=== PATIENT | female | born 1980 | race Caucasian/White ===

== ENCOUNTER → 2017-05-21 | Outpatient (CLI) | payer OTHER ==
[~2017-05-21] MED LIST: IOHEXOL 300 MG/ML 75 ML VIAL. IV ONE
--- NOTE | 2017-05-21 15:57 | RAD ---
INDICATION: Shortness of air with elevated d-dimer COMPARISON: None. TECHNIQUE: Axial CT images obtained through the chest. Intravenous contrast was utilized and three-dimensional images processed per angiogram protocol. FINDINGS: Mild groundglass nodular opacity within the left midlung anteriorly. No evidence of pneumothorax. Multiple nonobstructive stones at partially visualized right kidney. Partial visualization of gastric band. There is some fluid within the distal esophagus with some apparent wall thickening. Suspected low-attenuation lesion within the spleen, subcentimeter. Too Small to characterize. Thoracic aorta is not aneurysmal. There is very little contrast in the thoracic aorta therefore lumen is not well evaluated. Small amount of soft tissue density anterior mediastinum, given age could be residual thymus. No central pulmonary embolus IMPRESSION: 1. No central pulmonary embolus. 2. Mild groundglass nodular opacity left lung. Could be secondary to infectious or inflammatory etiology with small focus of pneumonitis. Given the patient's age neoplastic disease is considered unlikely unless the patient has risk factors then follow-up could be obtained. 3. There is some fluid within the distal esophagus with apparent wall thickening. Correlate with symptoms within the region to ensure that this is not from causes such as esophagitis or reflux. PQRS Compliance Statement: One or more of the following individualized dose reduction techniques were utilized for this examination: 1. Automated exposure control 2. Adjustment of the mA and/or kV according to patient size 3. Use of iterative reconstruction technique
== END | disposition home or self-care (01) ==
LOC: CT 15:00
PROVIDERS: ATTEND Nurse Practitioner Adult Health
DX: R91.8 Other nonspecific abnormal finding of lung field (principal); R51 Headache; R06.02 Shortness of breath
CPT/HCPCS: 71275; Q9967

== ENCOUNTER → 2017-09-02 | Outpatient (CLI) | payer OTHER ==
[~2017-09-02] MED LIST changes: +HYDR-971 PO; +TAMS0.4C97 PO
--- NOTE | 2017-09-02 17:16 | RAD ---
Chest CT with and without contrast Clinical indications: Follow-up of lung nodule. Technique: Noncontrast helical CT scanning of the chest was performed. After IV infusion of 75 cc of Omnipaque 300, repeat helical CT scanning of the chest was performed. PQRS Compliance Statement: One or more of the following individualized dose reduction techniques were utilized for this examination: 1. Automated exposure control 2. Adjustment of the mA and/or kV according to patient size 3. Use of iterative reconstruction technique Comparison: May 21, 2017. Findings: No enlarged thoracic lymphadenopathy is seen. No focal aneurysmal dilatation of the thoracic aorta is seen. The heart size is normal and no pericardial effusion is seen. A LAP-BAND is present. There is wall thickening of the distal esophagus. Small amount of fluid is seen within the distal esophagus. No lung mass or lung infiltrate is seen. The previously seen groundglass lung infiltrate of the lingula has resolved. No pleural effusion or pneumothorax is seen. The proximal bronchial tree is patent. No osteolytic process is seen. No adrenal mass is evident. IMPRESSION: Previously seen groundglass lung infiltrate has resolved consistent with infectious or inflammatory disease. No new lung infiltrate is seen. Persistent wall thickening of the distal esophagus. A small amount of fluid is seen within the lumen of the esophagus. This could be secondary to reflux esophagitis. A LAP-BAND is present.
--- NOTE | 2017-09-02 17:28 | RAD ---
Transabdominal and transvaginal sonography of the pelvis Clinical indications: Intermittent pelvic pain for 5 days. Pain is now located within the left lower quadrant. Hysterectomy. Transabdominal sonography: The uterus is surgically absent. The vaginal cuff is unremarkable. The left ovary contains a cyst. This will be further evaluated by transvaginal sonography. Color Doppler flow is seen within left ovary. The right ovary is normal.. Color Doppler flow is seen within the right ovary. Transvaginal sonography: The vaginal cuff is unremarkable. The left ovary measures 3.2 cm and 3.4 cm and 3.5 cm in size and contains a complex corpus luteum cyst or hemorrhagic cyst measuring 16 mm. No free fluid is seen around the left ovary. Color Doppler flow is seen within the left ovary. The right ovary measures 1.8 cm and 2.8 cm and 2.5 cm in size and is normal. Color Doppler flow is seen within the right ovary. No adnexal masses are seen. Small amount of physiologic free fluid is seen within the pelvis. IMPRESSION: 16 mm corpus cyst or hemorrhagic cyst of the left ovary. No free fluid is seen around the left ovary.
== END | disposition home or self-care (01) ==
LOC: US 16:03
PROVIDERS: ATTEND Family Medicine
DX: R10.2 Pelvic and perineal pain (principal); R10.32 Left lower quadrant pain; Z90.710 Acquired absence of both cervix and uterus
CPT/HCPCS: 71270; 76830; 76856; Q9967

== ENCOUNTER 2017-09-03 20:32 | Emergency (ER) | payer OTHER ==
[~2017-09-03] VITALS: Ht 172.7 cm; Wt 82.6 kg
[2017-09-03] MEDS ORDERED: KETOROLAC 30 MG/ML VIAL. ONE (21:20)
[2017-09-03] MEDS ORDERED: KETOROLAC 60 MG/2 ML VIAL. IM ONE (21:30)
[2017-09-03] MEDS ORDERED: HYDROmorphone PF 1 MG/ML DISP.SYRIN ONE (22:01)
[2017-09-03] MEDS ORDERED: HYDROmorphone PF 1 MG/ML DISP.SYRIN IV ONE ×2 (22:10→23:30)
[2017-09-03] MEDS ORDERED: IV NORMAL SALINE 1,000ML 1,000 ML IV ONE (22:10)
[2017-09-03 22:35] LABS: BASO # 0.1 x10^3/uL (0.0-0.2); BASO % 1 % (0-3); EOS # 0.2 x10^3/uL (0.0-0.7); EOS % 2 % (0-3); HEMATOCRIT 40.3 % (36.0-47.0); HEMOGLOBIN 13.6 g/dL (12.0-15.5); LYMPH % 28 % (24-48); MEAN CORPUSCULAR HEMOGLOBIN 30 pg (25-35); MEAN CORPUSCULAR HGB CONC 34 g/dL (31-37); MEAN CORPUSCULAR VOLUME 88 fL (79-100); MONO # 0.5 x10^3/uL (0.0-1.1); MONO % 7 % (0-9); NEUT # 4.3 x10^3uL (1.8-7.7); NEUT % 61 % (31-73); PLATELET COUNT 187 x10^3/uL (140-400); RED CELL DISTRIBUTION WIDTH 14.7 % (11.5-14.5); WHITE BLOOD COUNT 7.1 x10^3/uL (4.0-11.0)
[2017-09-03 23:15] LABS: ALBUMIN/GLOBULIN RATIO 1.3 (1.0-1.7); CALCIUM 8.5 mg/dL (8.5-10.1); CREATININE 0.9 mg/dL (0.6-1.0); GFR 71.3; POTASSIUM 3.8 mmol/L (3.5-5.1); TOTAL PROTEIN 7.1 g/dL (6.4-8.2)
[2017-09-03 23:21] LABS: BILIRUBIN,URINE NEG (NEG); CLARITY,URINE CLEAR; COLOR,URINE YELLOW; GLUCOSE,URINE NEG (NEG)
[2017-09-03 23:22] LABS: BACTERIA,URINE 0 /HPF (0-FEW); NITRITE,URINE NEG (NEG); RBC,URINE OCC /HPF (0-2); SQUAMOUS EPITHELIAL CELL,UR FEW /LPF; UROBILINOGEN,URINE 0.2 mg/dL (0.2 mg/dL); WBC,URINE 0 /HPF (0-4)
[2017-09-03] MEDS ORDERED: ONDANSETRON PF 4 MG/2 ML VIAL. IV ONE (23:30)
--- NOTE | 2017-09-04 00:04 | RAD ---
Left RENAL ULTRASOUND Indication: Left lower quadrant pain, history of kidney stones. Comparison: None. Procedure: Transabdominal ultrasound images are obtained of the left kidney. Findings: Left kidney length this 11.6 cm. There is a prominent column of Pedro. Cortical echotexture is normal. Normal cortical medullary differentiation. No hydronephrosis. Urinary bladder is no incompletely decompressed, limiting evaluation. The right kidney is not imaged. IMPRESSION: No left hydronephrosis.. Electronically signed by: Isrrael Valdes MD (09/04/2017 12:00 AM) [facility]
--- NOTE | 2017-09-04 00:13 | RAD ---
EXAM: TRANSVAGINAL HISTORY: Left ovarian cyst follow-up from yesterday. COMPARISON: September 02, 2017. TECHNIQUE: Transverse and longitudinal sonography of the pelvis is performed utilizing a transvaginal transducer. FINDINGS: A small amount of simple appearing free fluid is present within the pelvis, similar to yesterday's exam. The left ovary is visualized measuring 3.7 x 3.2 x 2.7 cm. There is redemonstration of a 1.8 cm partially cystic, partially echogenic lesion within the left ovary, unchanged in appearance from yesterday's exam. Some peripheral blood flow is documented. Other normal-appearing follicles are seen within the ovary. Normal blood flow is documented within the ovary. The right ovary cannot be visualized. Uterus is not evaluated. IMPRESSION: Stable sonographic appearance of the left ovary when compared to yesterday's exam, which contains a probable hemorrhagic or corpus luteal cyst. Small amount of simple appearing pelvic fluid also appears stable. Electronically signed by: Tessa Werner MD (09/04/2017 12:10 AM) [id number]
[2017-09-04] MEDS ORDERED: TAMS0.4C97 PO (00:18)
[2017-09-04] MEDS ORDERED: HYDR-971 PO (00:22)
--- NOTE | 2017-09-04 00:22 | PHYS DOC ---
Past History Past Medical History: Endometriosis, Kidney Stones Past Surgical History: Cholecystectomy, Hysterectomy Alcohol Use: Rarely Drug Use: None Adult General Chief Complaint Chief Complaint: ABDOMINAL PAIN [facility] HPI Patient is a 36 year old F who presents with constant sharp left lower quadrant abdominal pain with wave like episodes of worsening pain lasting minutes at a time. She states that she has had symptoms over the past 6 days however approximately 2-3 hours prior to arrival her pain became much more severe. She was seen in the emergency room last night was found to have an ovarian cyst. She does have a history of kidney stones as well as atypical renal anatomy. She states that she has to ureters on the left side. She does have associated nausea and vomiting with episodes of pain. She has no other associated symptoms. She has no known exacerbating or alleviating factors. Review of Systems Review of Systems Constitutional: Denies fever or chills [] Eyes: Denies change in visual acuity, redness, or eye pain [] HENT: Denies nasal congestion or sore throat [] Respiratory: Denies cough or shortness of breath [] Cardiovascular: No additional information not addressed in HPI [] GI: Denies bloody stools or diarrhea. She states that she has had regular bowel movements : Denies dysuria or hematuria [] Musculoskeletal: Denies back pain or joint pain [] Integument: Denies rash or skin lesions [] Neurologic: Denies headache, focal weakness or sensory changes [] Endocrine: Denies polyuria or polydipsia [] Family History Family History Noncontributory Current Medications Current Medications Current Medications Medications (Trade) Dose Ordered Sig/Shila Start Time Stop Time Status Last Admin Dose Admin Hydromorphone HCl (Dilaudid) 1 mg 1X ONCE 09/03/17 23:30 09/03/17 23:31 DC 09/03/17 23:30 1 MG Ketorolac Tromethamine (Toradol) 30 mg STK-MED ONCE 09/03/17 21:20 09/03/17 21:21 DC Ondansetron HCl (Zofran) 4 mg 1X ONCE 09/03/17 23:30 09/03/17 23:31 DC 09/03/17 23:30 4 MG Sodium Chloride 1,000 ml @ 1,000 mls/hr 1X ONCE 09/03/17 22:10 09/03/17 23:09 DC 09/03/17 22:10 1,000 MLS/HR Allergies Allergies Allergies Coded Allergies Type Severity Reaction Last Updated Verified amoxicillin Allergy Unknown 05/21/17 Yes Physical Exam Physical Exam Constitutional: Well developed, well nourished, mild to moderate acute distress , non-toxic appearance. [] HENT: Normocephalic, atraumatic, bilateral external ears normal, oropharynx moist, no oral exudates, nose normal. [] Eyes: PERRLA, conjunctiva normal, no discharge. [] Neck: Normal range of motion, no tenderness, supple, no stridor. [] Cardiovascular:Heart rate regular rhythm, Lungs & Thorax: Bilateral breath sounds clear to auscultation [] Abdomen: Bowel sounds normal, soft, no masses, no pulsatile masses. [] Mild left lower quadrant tenderness, mild left flank tenderness Skin: Warm, dry, no erythema, no rash. [] Back: No tenderness, no CVA tenderness. [] Extremities: No tenderness, no cyanosis, no clubbing, ROM intact, no edema. [] Neurologic: Alert and oriented X 3, normal motor function, normal sensory function, no focal deficits noted. [] Psychologic: Affect normal, judgement normal, mood normal. [] Current Patient Data Vital Signs Vital Signs Date Time Temp Pulse Resp B/P (MAP) Pulse Ox O2 Delivery O2 Flow Rate FiO2 09/03/17 23:30 20 Room Air 09/03/17 21:05 97.8 77 125/80 (95) 97 Lab Results Laboratory Tests Test 09/03/17 21:57 09/03/17 22:20 Urine Collection Type Void Urine Color Yellow Urine Clarity Clear Urine pH 6.0 Urine Specific [place] 1.025 Urine Protein Neg (NEG-TRACE) Urine Glucose (UA) Neg mg/dL (NEG) Urine Ketones (Stick) Neg mg/dL (NEG) Urine Blood Trace (NEG) Urine Nitrite Neg (NEG) Urine Bilirubin Neg (NEG) Urine Urobilinogen Dipstick 0.2 mg/dL (0.2 mg/dL) Urine Leukocyte Esterase Neg (NEG) Urine RBC Occ /HPF (0-2) Urine WBC 0 /HPF (0-4) Urine Squamous Epithelial Cells Few /LPF Urine Bacteria 0 /HPF (0-FEW) White Blood Count 7.1 x10^3/uL (4.0-11.0) Red Blood Count 4.60 x10^6/uL (3.50-5.40) Hemoglobin 13.6 g/dL (12.0-15.5) Hematocrit 40.3 % (36.0-47.0) Mean Corpuscular Volume 88 fL (79-100) Mean Corpuscular Hemoglobin 30 pg (25-35) Mean Corpuscular Hemoglobin Concent 34 g/dL (31-37) Red Cell Distribution Width 14.7 % (11.5-14.5) H Platelet Count 187 x10^3/uL (140-400) Neutrophils (%) (Auto) 61 % (31-73) Lymphocytes (%) (Auto) 28 % (24-48) Monocytes (%) (Auto) 7 % (0-9) Eosinophils (%) (Auto) 2 % (0-3) Basophils (%) (Auto) 1 % (0-3) Neutrophils # (Auto) 4.3 x10^3uL (1.8-7.7) Lymphocytes # (Auto) 2.0 x10^3/uL (1.0-4.8) Monocytes # (Auto) 0.5 x10^3/uL (0.0-1.1) Eosinophils # (Auto) 0.2 x10^3/uL (0.0-0.7) Basophils # (Auto) 0.1 x10^3/uL (0.0-0.2) Sodium Level 139 mmol/L (136-145) Potassium Level 3.8 mmol/L (3.5-5.1) Chloride Level 104 mmol/L (98-107) Carbon Dioxide Level 26 mmol/L (21-32) Anion Gap 9 (6-14) Blood Urea Nitrogen 11 mg/dL (7-20) Creatinine 0.9 mg/dL (0.6-1.0) Estimated GFR (Cockcroft-Gault) 71.3 BUN/Creatinine Ratio 12 (6-20) Glucose Level 82 mg/dL (70-99) Calcium Level 8.5 mg/dL (8.5-10.1) Total Bilirubin 1.0 mg/dL (0.2-1.0) Aspartate Amino Transferase (AST) 10 U/L (15-37) L Alanine Aminotransferase (ALT) 20 U/L (14-59) Alkaline Phosphatase 94 U/L (46-116) Total Protein 7.1 g/dL (6.4-8.2) Albumin 4.0 g/dL (3.4-5.0) Albumin/Globulin Ratio 1.3 (1.0-1.7) Lipase 230 U/L (73-393) EKG EKG [] Radiology/Procedures Radiology/Procedures Ultrasound abdomen limited Impressions: Normal blood flow to the left ovary with ovarian cyst noted to be diminishing in size. No hydronephrosis noted. Course & Med Decision Making Course & Med Decision Making Pertinent Labs and Imaging studies reviewed. (See chart for details) It was explained to Shanel and her that CT abdomen and pelvis without contrast is the preferred imaging modality to find a kidney stone. CT scan was declined. He was explained that without radiographic evidence of a kidney stone it is possible that another source may be causing her pain. She expressed understanding and declined the CT scan. Given that she has had a history of kidney stones and her pain is similar to previous kidney stones it was felt reasonable to manage her current symptoms as likely caused by a kidney stone. Dragon Disclaimer Dragon Disclaimer This chart was dictated in whole or in part using Voice Recognition software in a busy, high-work load, and often noisy Emergency Department environment. It may contain unintended and wholly unrecognized errors or omissions. Departure Departure: Impression: Primary Impression: Abdominal pain Disposition: 01 HOME, SELF-CARE Condition: STABLE Referrals: SANDEEP GAXIOLA DO (PCP) Patient Instructions: Diet for Kidney Stones, Kidney Stones Additional Instructions: Shanel was seen in the emergency department for abdominal pain. No emergency medical condition was found on history or physical exam. She did have normal labs and a normal ultrasound. Her symptoms are most consistent with a kidney stone. She was given a prescription for Flomax and pain medication. She was also given a strainer to attempt to collect the stone to ensure it passes. She was advised to return to the emergency room if she develops new or worsening symptoms. She was also advised follow-up with her primary care doctor as needed for further management. Scripts Hydrocodone Bit/Acetaminophen (NORCO 5-325 TABLET) 1 Each Tablet 1 TAB PO TID Y for PAIN for 5 Days, #15 TAB Prov: ROBSON KUNZ MD 09/04/17 Tamsulosin Hcl (FLOMAX) 0.4 Mg Cap.er.24h 1 CAP PO DAILY for 14 Days, #14 CAP 11 Refills Prov: ROBSON KUNZ MD 09/04/17 Problem Qualifiers Primary Impression: Abdominal pain Abdominal location: left lower quadrant Qualified Codes: R10.32 - Left lower quadrant pain ROBSON KUNZ MD Sep 04, 2017 00:22
[2017-09-04 00:25] VITALS: BP 110/74
[2017-09-04] MEDS ORDERED: TAMSULOSIN 0.4 MG CAP.ER.24H. PO ONE (00:45)
== END 2017-09-04 00:35 | disposition home or self-care (01) ==
LOC: ER 20:32
DX: R10.32 Left lower quadrant pain (principal); R11.2 Nausea with vomiting, unspecified; N83.202 Unspecified ovarian cyst, left side; Z87.442 Personal history of urinary calculi; Z88.1 Allergy status to other antibiotic agents; Z90.49 Acquired absence of other specified parts of digestive tract; Z90.710 Acquired absence of both cervix and uterus
CPT/HCPCS: 36415; 76775; 76830; 80053; 81001; 83690; 85025; 96361; 96372; 96374; 96375; 96376; 99285; J1170; J1885; J2405; J7030

== ENCOUNTER 2019-10-09 09:29 | Emergency (ER) | payer OTHER ==
[~2019-10-09] VITALS: Ht 172.7 cm; Wt 75.7 kg
[~2019-10-09 09:29] MED LIST changes: +HYDR-3165 PO; -HYDR-971 PO; -IOHEXOL 300 MG/ML 75 ML VIAL. IV ONE
[2019-10-09] MEDS ORDERED: IV NORMAL SALINE 1,000ML 1,000 ML IV SCH (09:43)
--- NOTE | 2019-10-09 09:49 | PHYS DOC ---
Past History Past Medical History: Endometriosis, Kidney Stones, Other Additional Past Medical Histor: double uterers on left Past Surgical History: Cholecystectomy, Hysterectomy, Other Additional Past Surgical Histo: surgeries for kidney stones; lap band Smoking: Non-smoker Alcohol Use: Rarely Drug Use: None Adult General Chief Complaint Chief Complaint: FLANK PAIN HPI HPI Patient is a 38-year-old female, with a prior history of kidney stones, who presents to the emergency department for evaluation of sudden onset left flank pain which began last night. She states that she has had kidney stones in the past and the pains feel similar. She has not had any hematuria, but reports some urinary urgency, and dark urine. She has not had any dysuria. She has had nausea and vomiting but no fever. She denies any injuries. There are no alleviating or exacerbating factors to her symptoms. She last had surgery on a kidney stone this past summer, and has a urologist in [facility] whom she sees. Review of Systems Review of Systems Constitutional: Denies fever or chills [] Eyes: Denies change in visual acuity, redness, or eye pain [] HENT: Denies nasal congestion or sore throat [] Respiratory: Denies cough or shortness of breath [] Cardiovascular: The patient denies any shortness of breath, chest pain, palpitations, or orthopnea [] GI: Denies abdominal pain, nausea, vomiting, bloody stools or diarrhea [] : As per history of present illness[] Musculoskeletal: Denies back pain or joint pain [] Integument: Denies rash or skin lesions [] Neurologic: Denies headache, focal weakness or sensory changes [] Endocrine: Denies polyuria or polydipsia [] All other systems were reviewed and found to be within normal limits, except as documented in this note. Allergies Allergies Allergies Coded Allergies Type Severity Reaction Last Updated Verified amoxicillin Allergy Unknown 10/09/19 Yes calamine Allergy Unknown 10/09/19 Yes Physical Exam Physical Exam PHYSICAL EXAM: CONSTITUTIONAL: Well developed, well nourished HEAD: normocephalic, atraumatic EENT: PERRL, EOMI. Conjunctivae normal color, sclerae non-icteric; moist mucous membranes. NECK: Supple, non-tender; no meningismus. LUNGS: Lungs CTA, breathing even and unlabored. Normal air movement. HEART: Regular rate and rhythm, no murmur CHEST: No deformity; non-tender ABDOMEN: The abdomen is soft, there is tenderness to palpation to the left and mid abdomen, without rebound or guarding, the remainder of the abdomen is soft and non-tender, no masses or bruits. EXTREM: Normal ROM; no deformity, no calf tenderness. Normal pulses palpable in all extremities. There is no pedal edema. SKIN: No rash; no diaphoresis NEURO: Alert; normal speech and cognition; CN's grossly intact; strength grossly intact without focal deficit. BACK: There is moderate left-sided CVA tenderness to palpation, which reproduces the patient's pain, no right-sided CVA TTP. Current Patient Data Vital Signs Vital Signs Date Time Temp Pulse Resp B/P (MAP) Pulse Ox O2 Delivery O2 Flow Rate FiO2 10/09/19 09:38 98.6 92 20 97 Room Air Lab Results Laboratory Tests Test 10/09/19 09:50 10/09/19 09:57 Urine Collection Type Void Urine Color Jane Urine Clarity Cloudy Urine pH 6.0 Urine Specific [place] >=1.030 Urine Protein 100 mg/dl Urine Glucose (UA) Neg mg/dL Urine Ketones (Stick) Trace mg/dL Urine Blood Large Urine Nitrite Pos Urine Bilirubin Neg Urine Urobilinogen Dipstick 0.2 mg/dL Urine Leukocyte Esterase Trace Urine RBC >40 /HPF Urine WBC 20-40 /HPF Urine Squamous Epithelial Cells Few /LPF Urine Bacteria Mod /HPF Urine Mucus Mod /LPF White Blood Count 5.5 x10^3/uL Red Blood Count 4.58 x10^6/uL Hemoglobin 14.0 g/dL Hematocrit 41.8 % Mean Corpuscular Volume 91 fL Mean Corpuscular Hemoglobin 31 pg Mean Corpuscular Hemoglobin Concent 33 g/dL Red Cell Distribution Width 16.5 % Platelet Count 200 x10^3/uL Neutrophils (%) (Auto) 50 % Lymphocytes (%) (Auto) 37 % Monocytes (%) (Auto) 10 % Eosinophils (%) (Auto) 2 % Basophils (%) (Auto) 1 % Neutrophils # (Auto) 2.7 x10^3uL Lymphocytes # (Auto) 2.0 x10^3/uL Monocytes # (Auto) 0.5 x10^3/uL Eosinophils # (Auto) 0.1 x10^3/uL Basophils # (Auto) 0.1 x10^3/uL Sodium Level 141 mmol/L Potassium Level 3.9 mmol/L Chloride Level 106 mmol/L Carbon Dioxide Level 25 mmol/L Anion Gap 10 Blood Urea Nitrogen 8 mg/dL Creatinine 0.6 mg/dL Estimated GFR (Cockcroft-Gault) 112.5 BUN/Creatinine Ratio 13 Glucose Level 75 mg/dL Calcium Level 8.8 mg/dL Total Bilirubin 1.4 mg/dL Aspartate Amino Transf (AST/SGOT) 13 U/L Alanine Aminotransferase (ALT/SGPT) 21 U/L Alkaline Phosphatase 69 U/L Total Protein 6.4 g/dL Albumin 3.8 g/dL Albumin/Globulin Ratio 1.5 Lipase 58 U/L Current Medications Medications (Trade) Dose Ordered Sig/Shila Route PRN Reason Start Time Stop Time Status Last Admin Dose Admin Sodium Chloride 1,000 ml @ 1,000 mls/hr Q1H IV 10/09/19 09:43 10/09/19 10:42 DC 10/09/19 09:59 Ondansetron HCl (Zofran) 4 mg 1X ONCE IVP 10/09/19 10:00 10/09/19 10:01 DC 10/09/19 10:00 Ketorolac Tromethamine (Toradol 30mg Vial) 30 mg 1X ONCE IVP 10/09/19 10:00 10/09/19 10:01 DC 10/09/19 10:01 Ketorolac Tromethamine (Toradol 30mg Vial) 30 mg STK-MED ONCE .ROUTE 10/09/19 09:54 10/09/19 09:54 DC Iohexol (Omnipaque 350 Mg/ml) 100 ml 1X ONCE IV 10/09/19 10:45 10/09/19 10:46 DC 10/09/19 10:46 Morphine Sulfate (Morphine 4mg Syringe) 4 mg 1X ONCE IV 10/09/19 11:00 10/09/19 11:01 DC 10/09/19 10:48 Morphine Sulfate (Morphine 4mg Syringe) 4 mg STK-MED ONCE .ROUTE 10/09/19 10:46 10/09/19 10:46 DC Ceftriaxone Sodium 1 gm/ Sodium Chloride 50 ml @ 100 mls/hr 1X ONCE IV 10/09/19 11:15 10/09/19 11:44 10/09/19 11:00 Sodium Chloride 50 ml @ As Directed STK-MED ONCE .ROUTE 10/09/19 10:57 10/09/19 10:57 DC Ceftriaxone Sodium (Rocephin) 1 gm STK-MED ONCE .ROUTE 10/09/19 10:57 10/09/19 10:58 DC EKG EKG [] Radiology/Procedures Radiology/Procedures PROCEDURE: CT ABDOMEN PELVIS WO/W Examination: CT ABDOMEN PELVIS WO/W History: severe lower left abdominal pain X 24 hours, history of kidney stones, duplicate left ureter Comparison/Correlation: 09/30/2017 pelvic ultrasound transabdominal and transvaginal Findings: Axial images of the abdomen and pelvis were obtained prior to and following IV contrast. Sagittal and coronal reformatted images were provided. Lung bases are clear. Gastric lap band noted. Liver is unremarkable. Spleen is unremarkable. Pancreas and adrenal glands are normal. Right renal upper pole 0.4 cm diameter calcified calculus is present. Punctate calculus at the upper pole region more inferiorly also is present. There are 4 interpolar calyceal calculi. There are 2 punctate right lower pole calyceal complex. There are 2 left renal lower pole calyceal calculi with the larger of these measuring 0.3 cm diameter. No hydronephrosis. Striated nephrogram appearance bilaterally as seen on postcontrast imaging. Urinary bladder is mostly decompressed and unremarkable. Adrenal glands are unremarkable. No enlarged abdominal or pelvic lymph nodes. Moderate quantity of stool in the colon noted. No bowel obstruction or extraluminal gas. Uterus is not delineated. No ascites or pelvic free fluid. No enlarged abdominal or pelvic lymph nodes. Surgical clips involving the lower abdominal wall noted. Concentric disc bulge is noted L4-5 with disc space narrowing and spinal canal stenosis. No inflammatory change about the cecum. Bilateral adnexal follicles are present. Impression: Bilateral nonobstructive renal calculi. No hydronephrosis. Incidental note of bilateral striated nephrogram is of indeterminate significance. Correlate for possibility of pyelonephritis, hypertension or acute tubular necrosis. Bilateral adnexal follicles are physiologic in appearance. L4-5 disc space narrowing with concentric disc bulge and spinal canal narrowing. [] Course & Med Decision Making Course & Med Decision Making Pertinent Labs and Imaging studies reviewed. (See chart for details) []11:35 AM:Patient remains stable. I discussed test results, the need for close follow-up, and return precautions. I discussed importance of close follow-up with her urologist for residual intrarenal stones, which are currently nonobstructive. Dragon Disclaimer Dragon Disclaimer This electronic medical record was generated, in whole or in part, using a voice recognition dictation system. Departure Departure: Impression: Primary Impression: Urinary tract infection Additional Impression: Pyelonephritis Disposition: HOME, SELF-CARE Condition: STABLE Referrals: GEOVANNY CALHOUN DO (PCP) Patient Instructions: Diet for Kidney Stones, Pyelonephritis, Adult, Urinary Tract Infection Scripts Acetaminophen With Codeine (TYLENOL WITH CODEINE #3 TABLET) 1 Each Tablet 1 TAB PO PRN Q6HRS PRN for pain MDD 4 Tablet(s), #15 TAB 0 Refills Prov: JOSE OREILLY MD 10/09/19 Sulfamethoxazole/Trimethoprim (BACTRIM 400-80 MG TABLET) 1 Each Tablet 1 TAB PO BID for - for 10 Days, #20 TAB 0 Refills Prov: JOSE OREILLY MD 10/09/19 Problem Qualifiers JOSE OREILLY MD Oct 09, 2019 09:48
[2019-10-09] MEDS ORDERED: KETOROLAC 30 MG/ML VIAL. ONE (09:54)
[2019-10-09] MEDS ORDERED: ONDANSETRON PF 4 MG/2 ML VIAL. IVP ONE (10:00)
[2019-10-09] MEDS ORDERED: KETOROLAC 30 MG/ML VIAL. IVP ONE (10:00)
[2019-10-09 10:12] LABS: BASO # 0.1 x10^3/uL (0.0-0.2); BASO % 1 % (0-3); EOS # 0.1 x10^3/uL (0.0-0.7); EOS % 2 % (0-3); HEMATOCRIT 41.8 % (36.0-47.0); LYMPH % 37 % (24-48); MEAN CORPUSCULAR HEMOGLOBIN 31 pg (25-35); MEAN CORPUSCULAR HGB CONC 33 g/dL (31-37); MEAN CORPUSCULAR VOLUME 91 fL (79-100); MONO # 0.5 x10^3/uL (0.0-1.1); MONO % 10 % (0-9); NEUT # 2.7 x10^3uL (1.8-7.7); NEUT % 50 % (31-73); PLATELET COUNT 200 x10^3/uL (140-400); RED BLOOD COUNT 4.58 x10^6/uL (3.50-5.40); RED CELL DISTRIBUTION WIDTH 16.5 % (11.5-14.5); WHITE BLOOD COUNT 5.5 x10^3/uL (4.0-11.0)
[2019-10-09 10:30] LABS: ALBUMIN 3.8 g/dL (3.4-5.0); ALBUMIN/GLOBULIN RATIO 1.5 (1.0-1.7); CALCIUM 8.8 mg/dL (8.5-10.1); CREATININE 0.6 mg/dL (0.6-1.0); GFR 112.5; POTASSIUM 3.9 mmol/L (3.5-5.1); TOTAL BILIRUBIN 1.4 mg/dL (0.2-1.0); TOTAL PROTEIN 6.4 g/dL (6.4-8.2)
[2019-10-09 10:45] LABS: BACTERIA,URINE MOD /HPF (0-FEW); BILIRUBIN,URINE NEG (NEG); CLARITY,URINE CLOUDY; COLOR,URINE AMBER; GLUCOSE,URINE NEG (NEG); NITRITE,URINE POS (NEG); RBC,URINE >40 /HPF (0-2); SQUAMOUS EPITHELIAL CELL,UR FEW /LPF; UROBILINOGEN,URINE 0.2 mg/dL (0.2 mg/dL); WBC,URINE 20-40 /HPF (0-4)
[2019-10-09] MEDS ORDERED: IOHEXOL 350 MG/ML 100 ML VIAL. IV ONE (10:45)
[2019-10-09] MEDS ORDERED: MORPHINE SULFATE 4 MG/ML DISP.SYRIN. ONE (10:46)
[2019-10-09] MEDS ORDERED: cefTRIAXone SODIUM 1 GM VIAL ONE (10:57)
[2019-10-09] MEDS ORDERED: IV NORMAL SALINE 50ML 50 ML ONE (10:57)
[2019-10-09] MEDS ORDERED: MORPHINE SULFATE 4 MG/ML DISP.SYRIN. IV ONE (11:00)
--- NOTE | 2019-10-09 11:11 | RAD ---
Examination: CT ABDOMEN PELVIS WO/W History: severe lower left abdominal pain X 24 hours, history of kidney stones, duplicate left ureter Comparison/Correlation: 09/30/2017 pelvic ultrasound transabdominal and transvaginal Findings: Axial images of the abdomen and pelvis were obtained prior to and following IV contrast. Sagittal and coronal reformatted images were provided. Lung bases are clear. Gastric lap band noted. Liver is unremarkable. Spleen is unremarkable. Pancreas and adrenal glands are normal. Right renal upper pole 0.4 cm diameter calcified calculus is present. Punctate calculus at the upper pole region more inferiorly also is present. There are 4 interpolar calyceal calculi. There are 2 punctate right lower pole calyceal complex. There are 2 left renal lower pole calyceal calculi with the larger of these measuring 0.3 cm diameter. No hydronephrosis. Striated nephrogram appearance bilaterally as seen on postcontrast imaging. Urinary bladder is mostly decompressed and unremarkable. Adrenal glands are unremarkable. No enlarged abdominal or pelvic lymph nodes. Moderate quantity of stool in the colon noted. No bowel obstruction or extraluminal gas. Uterus is not delineated. No ascites or pelvic free fluid. No enlarged abdominal or pelvic lymph nodes. Surgical clips involving the lower abdominal wall noted. Concentric disc bulge is noted L4-5 with disc space narrowing and spinal canal stenosis. No inflammatory change about the cecum. Bilateral adnexal follicles are present. Impression: Bilateral nonobstructive renal calculi. No hydronephrosis. Incidental note of bilateral striated nephrogram is of indeterminate significance. Correlate for possibility of pyelonephritis, hypertension or acute tubular necrosis. Bilateral adnexal follicles are physiologic in appearance. L4-5 disc space narrowing with concentric disc bulge and spinal canal narrowing. PQRS Compliance Statement: One or more of the following individualized dose reduction techniques were utilized for this examination: 1. Automated exposure control 2. Adjustment of the mA and/or kV according to patient size 3. Use of iterative reconstruction technique Electronically signed by: Myron Etienne MD (10/09/2019 11:09 AM) [facility]
[2019-10-09] MEDS ORDERED: ACET-704 PO (11:39)
[2019-10-09] MEDS ORDERED: SULF1TAB23 PO (11:39)
[2019-10-09 12:15] VITALS: BP 101/56
== END 2019-10-09 12:15 | disposition home or self-care (01) ==
LOC: ER 09:29
DX: N12 Tubulo-interstitial nephritis, not specified as acute or chronic (principal); N39.0 Urinary tract infection, site not specified; R11.2 Nausea with vomiting, unspecified; Z87.442 Personal history of urinary calculi; Z90.49 Acquired absence of other specified parts of digestive tract; Z90.710 Acquired absence of both cervix and uterus; Z88.8 Allergy status to other drugs, medicaments and biological substances; Z88.1 Allergy status to other antibiotic agents
CPT/HCPCS: 36415; 74178; 80053; 81001; 83690; 85025; 87086; 96361; 96365; 96375; 99285; J0696; J1885; J2270; J2405; Q9967; J7030

== ENCOUNTER 2019-12-10 20:39 | Observation (INO) | payer OTHER ==
[~2019-12-10] VITALS: Ht 172.7 cm; Wt 74.0 kg
[~2019-12-10 20:39] MED LIST changes: +ACET-704 PO; +SULF1TAB23 PO
--- NOTE | 2019-12-10 20:52 | PHYS DOC ---
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 I am hurtin a bed on my left abdomen.. it is almost as bad as kidney stone.. but pain is not usually like this... " [facility] HPI Patient is a 39 year old female who presents with above hx and complaints of abdomen pain. Pt. is described as severe on Lt flank and lower abdomen. There is some rebound to right lower abdomen pain. Patient denies any intake bad food. Patient denies any trauma. Patient denies any specific ill contacts. Patient normally follows at [facility] for care. 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 Patient has had removal gallbladder, LAP-BAND placement, and partial hysterectomy. Patient still has ovaries. Pt. follows at [facility] Review of Systems Review of Systems Constitutional: Denies fever or chills [] Eyes: Denies change in visual acuity, redness, or eye pain [] HENT: Denies nasal congestion or sore throat [] Respiratory: Denies cough or shortness of breath [] Cardiovascular: No additional information not addressed in [facility] [] GI: Denies abdominal pain, nausea, vomiting, bloody stools or diarrhea [] : Denies dysuria or hematuria [] Musculoskeletal: Denies back pain or joint pain [] Integument: Denies rash or skin lesions [] Neurologic: Denies headache, focal weakness or sensory changes [] Endocrine: Denies polyuria or polydipsia [] All other systems were reviewed and found to be within normal limits, except as documented in this note. Family History Family History Noncontributory Current Medications Current Medications See nursing for home meds Allergies Allergies Allergies Coded Allergies Type Severity Reaction Last Updated Verified amoxicillin Allergy Unknown 10/09/19 Yes calamine Allergy Unknown 10/09/19 Yes Physical Exam Physical Exam Constitutional: in acute distress, non-toxic appearance. [] HENT: Normocephalic, atraumatic, bilateral external ears normal, oropharynx moist, no oral exudates, nose normal. [] Eyes: PERRLA, EOMI, conjunctiva normal, no discharge. [] Neck: Normal range of motion, no tenderness, supple, no stridor. [] Cardiovascular:Heart rate regular rhythm, no murmur [] Lungs & Thorax: Bilateral breath sounds equal apex on auscultation [] Abdomen: Bowel sounds normal, soft, left lower quadrant tenderness, no masses, no pulsatile masses. Old surgery scars. Rebound to left lower quadrant. Patient denies any vaginal discharge. Skin: Warm, dry, no erythema, no rash. [] Back: No tenderness, mild left CVA tenderness. On percussion Extremities: No tenderness, no cyanosis, no clubbing, ROM intact, no edema. [] Mild psoas on left. Neurologic: Alert and oriented X 3, normal motor function, normal sensory function, no focal deficits noted. [] Psychologic: Affect anxious, judgement normal, mood normal. [] EKG EKG My interpretation EKG shows a sinus rhythm at 82 bpm. No acute morphology.[] Radiology/Procedures Radiology/[place] [address] IMAGING REPORT Signed PATIENT: NILTON CASEY ACCOUNT: [id number] : 1980 LOCATION: ER AGE: 39 SEX: F EXAM STATUS: REG ER ORD. PHYSICIAN: JUANCARLOS AYALA MD REASON: abd. pain Lt. lower, OMNI 300, 75ml & OMNI 240, 30ml PROCEDURE: CT ABD PELV W/ORAL&IV CONTRAST PQRS Compliance Statement: One or more of the following individualized dose reduction techniques were utilized for this examination: 1. Automated exposure control 2. Adjustment of the mA and/or kV according to patient size 3. Use of iterative reconstruction technique CT ABD PELV W/ORAL IV CONTRAST Clinical Indication: Abdominal pain, left lower. Comparison: CT abdomen and pelvis without contrast, prior day. Technique: Helical CT imaging of the abdomen and pelvis is performed after 75 cc of Omnipaque 300 IV contrast. Oral contrast also given. Findings: Lung bases are clear. Cardiac size normal. There is oral contrast in the distal esophagus which may be due to incomplete passage versus reflux. There is no wall thickening of the distal esophagus. Cholecystectomy. Extrahepatic duct prominence is stable. The liver is homogeneous. Normal variant Steff lobe. Small cyst or hemangioma in the medial spleen. Pancreas, adrenal glands, and abdominal aorta caliber are normal. There are bilateral nonobstructing renal calculi. The kidneys enhance symmetrically. No hydronephrosis. Duplicated left collecting system. Gastric lap band is in stable position. No gastric wall thickening is seen. Oral contrast opacifies proximal small bowel loops. There is no small bowel obstruction. No colon wall thickening is identified. The appendix is normal. No abdominal adenopathy or free fluid. Urinary bladder is mostly decompressed, otherwise normal. Hysterectomy. Small right ovary functional cyst demonstrates rim enhancement. Small left ovarian follicles are suggested. No pelvic free fluid is seen. Bones appear stable. Transitional lumbosacral anatomy. IMPRESSION: 1. No acute abdominal or pelvic abnormality. 2. Bilateral nonobstructing renal calculi. Electronically signed by: Isrrael Valdes MD (12/11/2019 2:27 AM) [id number] DICTATED AND SIGNED BY: ISRRAEL VALDES MD DATE: 12/11/19226 CC: GEOVANNY CALHOUN DO; JUANCARLOS AYALA MD ~ [place] [address] IMAGING REPORT Signed PATIENT: NILTON CASEY ACCOUNT: [id number] : 1980 LOCATION: ER AGE: 39 SEX: F EXAM STATUS: REG ER ORD. PHYSICIAN: JUANCARLOS AYALA MD REASON: pain, MID ABD/PEL PAIN, NAUSEA, SINCE THIS MORNING. PROCEDURE: ACUTE ABDOMEN SERIES Exam: Acute abdominal series INDICATION: Pain TECHNIQUE: Frontal view of chest with upright and supine views of the abdomen Comparisons: None FINDINGS: The cardiomediastinal silhouette and pulmonary vessels are within normal limits. The lung and pleural spaces are clear. There is a lap band which appears to be in appropriate position on radiograph. Air and stool are noted throughout the colon to level the rectum in a nonobstructive bowel gas pattern. No suspicious masses or calcifications. No free air. Visualized osseous structures are unremarkable. IMPRESSION: 1. No acute cardiopulmonary process. 2. Nonobstructive bowel gas pattern. Electronically signed by: Mi Acuna MD (12/10/2019 10:35 PM) [id number] DICTATED AND SIGNED BY: MI ACUNA MD DATE: 12/10/192234 CC: GEOVANNY CALHOUN DO; JUANCARLOS AYALA MD ~ [][address] [id number] IMAGING REPORT Signed PATIENT: NILTON CASEY ACCOUNT: [id number] : 1980 LOCATION: ER AGE: 39 SEX: F EXAM STATUS: REG ER ORD. PHYSICIAN: JUANCARLOS AYALA MD REASON: Hematuria, Lt flank and abdomen pain, H/O DOUBLE URETERS ON LEFT PROCEDURE: CT ABDOMEN PELVIS WO CONTRAST PQRS Compliance Statement: One or more of the following individualized dose reduction techniques were utilized for this examination: 1. Automated exposure control 2. Adjustment of the mA and/or kV according to patient size 3. Use of iterative reconstruction technique CT ABDOMEN PELVIS WO CONTRAST Clinical Indication: Hematuria, left flank and abdomen pain. Comparison: CT abdomen and pelvis with and without contrast, October 09, 2019. Technique: Helical CT imaging of the abdomen and pelvis is performed without IV or oral contrast. Findings: Evaluation of solid organs and bowel is limited without oral and IV contrast, decreasing sensitivity for detection of pathology. Lung bases are clear. Cardiac size normal. Small air-fluid level in the distal esophagus. Cholecystectomy. Extrahepatic duct is mildly prominent tiny bubble of pneumobilia is seen distally, image 54. Liver is homogeneous. Spleen, pancreas, adrenal glands, and abdominal aorta caliber are normal. There are several sub-5 mm bilateral nonobstructing renal calculi. Duplicated left collecting system. No hydronephrosis or perinephric stranding is seen. There is gastric lap band in appropriate position. There is no small bowel obstruction. The appendix is normal. The descending colon is decompressed, limiting evaluation. No colon wall thickening is seen. No abdominal adenopathy or free fluid. There are several surgical clips along the ventral abdominal wall subcutaneous fat. Urinary bladder is normal. Hysterectomy. No pelvic free fluid is seen. Ovaries are symmetric. Redemonstrated degenerative spondylosis of L4/L5. IMPRESSION: 1. There is no obstructive uropathy. 2. Bilateral nonobstructing renal calculi. Electronically signed by: Isrrael Valdes MD (12/10/2019 11:16 PM) [id number] DICTATED AND SIGNED BY: ISRRAEL VALDES MD DATE: 12/10/192315 CC: GEOVANNY CALHOUN DO; JUANCARLOS AYALA MD ~ Course & Med Decision Making Course & Med Decision Making Pertinent Labs and Imaging studies reviewed. (See chart for details) Pt. still vomiting and abd. pain at 0300 hrs.. Will admit for NPO status and further eval. Dr. Parks. 1. Abdomen Pain 2. Hematuria 3. Nausea and Vomiting 4. Hx. Ovarian Cyts 5. Hx. of endometriosis 6. History of lap band 7. History of abdomen adhesions 8. History of left duplicating collecting ureters 9. History of kidney stones 10. Hx. IBS [] Dragon Disclaimer Dragon Disclaimer This electronic medical record was generated, in whole or in part, using a voice recognition dictation system. Departure Departure: Disposition: 01 HOME/RESIDENCE PRIOR TO ADM Condition: STABLE Referrals: GEOVANNY CALHOUN DO (PCP) Scripts Acetaminophen (ACETAMINOPHEN) 500 Mg Tablet 1000 MG PO QIDPRN PRN for pain or fever, #120 TAB Prov: JUANCARLOS AYALA MD 12/11/19 Ibuprofen (IBUPROFEN IB) 200 Mg Tablet 600 MG PO QIDPRN PRN for pain fever, #120 TAB Prov: JUANCARLOS AYALA MD 12/11/19 Ondansetron Hcl (ZOFRAN) 8 Mg Tablet 8 MG PO QIDPRN PRN for active nausea and vomiting., #30 BOTTLE Prov: JUANCARLOS AYALA MD 12/11/19 Hydrocodone/Ibuprofen (HYDROCODONE-IBUPROFEN 7.5-200 ) 1 Each Tablet 1 TAB PO PRN Q6HRS PRN for PAIN, #30 TAB 0 Refills Prov: JUANCARLOS AYALA MD 12/11/19 Dragon Disclaimer This chart was dictated in whole or in part using Voice Recognition software in a busy, high-work load, and often noisy Emergency Department environment. It may contain unintended and wholly unrecognized errors or omissions. Dragon Disclaimer This chart was dictated in whole or in part using Voice Recognition software in a busy, high-work load, and often noisy Emergency Department environment. It may contain unintended and wholly unrecognized errors or omissions. JUANCARLOS AYALA MD Dec 10, 2019 20:52
[2019-12-10] MEDS ORDERED: IV RINGERS SOLUTION,LACTATED 1,000 ML IV ONE (21:00)
[2019-12-10] MEDS ORDERED: MORPHINE SULFATE 10 MG/ML SYRINGE. SQ ONE ×2 (21:15→22:30)
[2019-12-10] MEDS ORDERED: KETOROLAC 30 MG/ML VIAL. IVP ONE (21:15)
[2019-12-10] MEDS ORDERED: ONDANSETRON PF 4 MG/2 ML VIAL. IVP ONE ×2 (21:15→22:45)
[2019-12-10 21:30] LABS: BASO # 0.1 x10^3/uL (0.0-0.2); BASO % 1 % (0-3); EOS # 0.1 x10^3/uL (0.0-0.7); EOS % 1 % (0-3); HEMATOCRIT 41.6 % (36.0-47.0); HEMOGLOBIN 13.9 g/dL (12.0-15.5); LYMPH # 2.3 x10^3/uL (1.0-4.8); LYMPH % 30 % (24-48); MEAN CORPUSCULAR HEMOGLOBIN 32 pg (25-35); MEAN CORPUSCULAR HGB CONC 33 g/dL (31-37); MEAN CORPUSCULAR VOLUME 95 fL (79-100); MONO # 0.6 x10^3/uL (0.0-1.1); MONO % 8 % (0-9); NEUT # 4.5 x10^3uL (1.8-7.7); NEUT % 60 % (31-73); PLATELET COUNT 212 x10^3/uL (140-400); RED BLOOD COUNT 4.36 x10^6/uL (3.50-5.40); RED CELL DISTRIBUTION WIDTH 16.7 % (11.5-14.5); WHITE BLOOD COUNT 7.5 x10^3/uL (4.0-11.0)
[2019-12-10 21:38] LABS: CALCIUM 8.3 mg/dL (8.5-10.1); CREATININE 0.8 mg/dL (0.6-1.0); GFR 80.3
[2019-12-10 21:39] LABS: BACTERIA,URINE FEW /HPF (0-FEW); BILIRUBIN,URINE NEG (NEG); CLARITY,URINE HAZY; COLOR,URINE YELLOW; GLUCOSE,URINE NEG (NEG); NITRITE,URINE NEG (NEG); SQUAMOUS EPITHELIAL CELL,UR OCC /LPF; WBC,URINE RARE /HPF (0-4)
[2019-12-10 21:54] LABS: ALBUMIN 3.7 g/dL (3.4-5.0); POTASSIUM 3.8 mmol/L (3.5-5.1); TOTAL BILIRUBIN 0.8 mg/dL (0.2-1.0); TOTAL PROTEIN 6.7 g/dL (6.4-8.2)
[2019-12-10 21:55] LABS: DIRECT BILIRUBIN 0.2 mg/dL (0.0-0.2)
--- NOTE | 2019-12-10 22:37 | RAD ---
Exam: Acute abdominal series INDICATION: Pain TECHNIQUE: Frontal view of chest with upright and supine views of the abdomen Comparisons: None FINDINGS: The cardiomediastinal silhouette and pulmonary vessels are within normal limits. The lung and pleural spaces are clear. There is a lap band which appears to be in appropriate position on radiograph. Air and stool are noted throughout the colon to level the rectum in a nonobstructive bowel gas pattern. No suspicious masses or calcifications. No free air. Visualized osseous structures are unremarkable. IMPRESSION: 1. No acute cardiopulmonary process. 2. Nonobstructive bowel gas pattern. Electronically signed by: Mi Camacho MD (12/10/2019 10:35 PM) [id number]
--- NOTE | 2019-12-10 23:19 | RAD ---
PQRS Compliance Statement: One or more of the following individualized dose reduction techniques were utilized for this examination: 1. Automated exposure control 2. Adjustment of the mA and/or kV according to patient size 3. Use of iterative reconstruction technique CT ABDOMEN PELVIS WO CONTRAST Clinical Indication: Hematuria, left flank and abdomen pain. Comparison: CT abdomen and pelvis with and without contrast, October 09, 2019. Technique: Helical CT imaging of the abdomen and pelvis is performed without IV or oral contrast. Findings: Evaluation of solid organs and bowel is limited without oral and IV contrast, decreasing sensitivity for detection of pathology. Lung bases are clear. Cardiac size normal. Small air-fluid level in the distal esophagus. Cholecystectomy. Extrahepatic duct is mildly prominent tiny bubble of pneumobilia is seen distally, image 54. Liver is homogeneous. Spleen, pancreas, adrenal glands, and abdominal aorta caliber are normal. There are several sub-5 mm bilateral nonobstructing renal calculi. Duplicated left collecting system. No hydronephrosis or perinephric stranding is seen. There is gastric lap band in appropriate position. There is no small bowel obstruction. The appendix is normal. The descending colon is decompressed, limiting evaluation. No colon wall thickening is seen. No abdominal adenopathy or free fluid. There are several surgical clips along the ventral abdominal wall subcutaneous fat. Urinary bladder is normal. Hysterectomy. No pelvic free fluid is seen. Ovaries are symmetric. Redemonstrated degenerative spondylosis of L4/L5. IMPRESSION: 1. There is no obstructive uropathy. 2. Bilateral nonobstructing renal calculi. Electronically signed by: Isrrael Valdes MD (12/10/2019 11:16 PM) [id number]
[2019-12-11] MEDS ORDERED: IOHEXOL 240 MG/ML 50ML VIAL. PO ONE (00:45)
[2019-12-11] MEDS ORDERED: CONTRAST GIVEN MC PRN (00:45)
[2019-12-11] MEDS ORDERED: IOHEXOL 300 MG/ML 75 ML VIAL. IV ONE (00:45)
--- NOTE | 2019-12-11 01:14 | EKG ---
[address] [address] Test Date: 2019-12-10 Test Time: 21:02:35 Pat Name: NILTNO CASEY Department: Room: Gender: F Automotive Hardware Engineer: : 1980 Requested By: JUANCARLOS AYALA Order Number: [id number] Reading MD: Measurements Intervals [place] Rate: 82 P: 63 WA: 152 QRS: 46 QRSD: 80 T: 49 QT: 376 QTc: 442 Interpretive Statements SINUS RHYTHM NO SPECIFIC ECG ABNORMALITIES RI6.01 No previous ECG available for comparison
[2019-12-11] MEDS ORDERED: MORPHINE SULFATE 10 MG/ML SYRINGE. SQ ONE (01:45)
--- NOTE | 2019-12-11 02:29 | RAD ---
PQRS Compliance Statement: One or more of the following individualized dose reduction techniques were utilized for this examination: 1. Automated exposure control 2. Adjustment of the mA and/or kV according to patient size 3. Use of iterative reconstruction technique CT ABD PELV W/ORAL IV CONTRAST Clinical Indication: Abdominal pain, left lower. Comparison: CT abdomen and pelvis without contrast, prior day. Technique: Helical CT imaging of the abdomen and pelvis is performed after 75 cc of Omnipaque 300 IV contrast. Oral contrast also given. Findings: Lung bases are clear. Cardiac size normal. There is oral contrast in the distal esophagus which may be due to incomplete passage versus reflux. There is no wall thickening of the distal esophagus. Cholecystectomy. Extrahepatic duct prominence is stable. The liver is homogeneous. Normal variant Steff lobe. Small cyst or hemangioma in the medial spleen. Pancreas, adrenal glands, and abdominal aorta caliber are normal. There are bilateral nonobstructing renal calculi. The kidneys enhance symmetrically. No hydronephrosis. Duplicated left collecting system. Gastric lap band is in stable position. No gastric wall thickening is seen. Oral contrast opacifies proximal small bowel loops. There is no small bowel obstruction. No colon wall thickening is identified. The appendix is normal. No abdominal adenopathy or free fluid. Urinary bladder is mostly decompressed, otherwise normal. Hysterectomy. Small right ovary functional cyst demonstrates rim enhancement. Small left ovarian follicles are suggested. No pelvic free fluid is seen. Bones appear stable. Transitional lumbosacral anatomy. IMPRESSION: 1. No acute abdominal or pelvic abnormality. 2. Bilateral nonobstructing renal calculi. Electronically signed by: Isrrael Valdes MD (12/11/2019 2:27 AM) [id number]
[2019-12-11] MEDS ORDERED: IBUP-4 PO (03:22)
[2019-12-11] MEDS ORDERED: ONDA8TAB9 PO (03:22)
[2019-12-11] MEDS ORDERED: HYDR-1179 PO (03:22)
[2019-12-11] MEDS ORDERED: ACET500T68 PO (03:22)
[2019-12-11] MEDS ORDERED: PROCHLORPERAZINE 10 MG/2 ML VIAL. IV ONE (03:30)
[2019-12-11] MEDS ORDERED: MAGNESIUM HYDROXIDE 2,400 MG/30 ML ORAL.SUSP. PO ONE (03:30)
[2019-12-11] MEDS ORDERED: diphenhydrAMINE 50 MG/ML VIAL IVP ONE (03:30)
[2019-12-11] MEDS ORDERED: MORPHINE SULFATE 10 MG/ML SYRINGE. SQ PRN (04:00)
[2019-12-11] MEDS ORDERED: KETOROLAC 30 MG/ML VIAL. IVP PRN (04:00)
[2019-12-11 05:25] VITALS: BP 111/71
[2019-12-11] MEDS: IV RINGERS SOLUTION,LACTATED 1,000 ML IV SCH ×2 (05:41→09:15)
[2019-12-11] MEDS ORDERED: IBUP400T18 PO (06:20)
[2019-12-11] MEDS ORDERED: ONDANSETRON PF 4 MG/2 ML VIAL. IVP PRN (08:45)
[2019-12-11] MEDS ORDERED: TAMSULOSIN 0.4 MG CAP.ER.24H. PO SCH (09:00)
[2019-12-11] MEDS ORDERED: FAMOTIDINE 20 MG/2 ML VIAL IVP SCH (09:00)
[2019-12-11] MEDS: MORPHINE SULFATE 4 MG/ML DISP.SYRIN. IV PRN ×2 (11:22→15:22)
[2019-12-11 11:32] VITALS: BP 102/65
--- NOTE | 2019-12-11 11:49 | HP ---
ADMIT DATE: 12/11/2019 HISTORY OF PRESENT ILLNESS: The patient is a 39-year-old female patient who came to the Emergency Room complaining of severe abdominal pain. Apparently, she is known to have a large left ovarian cyst that has been followed by her mold repair technician and last Wednesday, she developed severe pain in the left lower quadrant associated with nausea and vomiting. She apparently is known to have renal stones and had had for cystoscopy and retrograde pyelography and stone retrieval multiple times. She has duplicated ureter on the left and apparently has also history of endometriosis, for which she underwent a hysterectomy. She in fact has an appointment to see her mold repair technician tomorrow at their office in [place]. However, the pain was extremely severe that she came to the Emergency Room for further evaluation. She was extensively evaluated there and all her lab works were unremarkable. In particular, she has no leukocytosis. Her chemistry was unremarkable. Her urinalysis showed that she has microscopic hematuria, very few rbc's, and no bacteria and her urine was negative. She had also CT scan of the abdomen and pelvis with and without contrast, which showed that there is no obstructive uropathy. She has bilateral nonobstructing renal calculi. She also has no acute abdominal pelvic abnormality. She has bilateral nonobstructing renal calculi. In particular, her urinary bladder is mostly decompressed, otherwise normal hysterectomy. She has small right ovary functional cyst and demonstrated rim enhancement, small left ovarian follicles are suggested no pelvic free fluid is seen. PAST MEDICAL HISTORY: Significant for endometriosis, nephrolithiasis requiring surgical removal about 3 times. She has also morbid obesity, for which she underwent a lap band surgery. PAST SURGICAL HISTORY: Significant for hysterectomy without oophorectomy. She has cholecystectomy, cystoscopy and retrograde pyelography and stone retrieval multiple times. She has also lap band surgery. ALLERGIES: She is allergic to AMOXICILLIN and CALAMINE LOTION. MEDICATIONS: She is on multiple pain medications including tamsulosin for Flomax 0.4 mg at bedtime, ibuprofen 600 mg 4 times a day as needed. She is on Tylenol with Codeine 1 tablet every 6 hours, hydrocodone/APAP 5/325 three times a day as needed. She is also on ondansetron 8 mg 4 times a day. FAMILY HISTORY: She has one brother who is older and healthy. Does not know her biological father very well. Mother is alive at the age of 58. SOCIAL HISTORY: She is . She has a son and a daughter. She smokes on and off, does not drink alcohol or use any recreational drugs. She works as a assistant food service manager. REVIEW OF SYSTEMS: As per history of present illness. PHYSICAL EXAMINATION: GENERAL: When I saw her, she was resting slightly propped up in bed, in no apparent respiratory distress. No pallor, jaundice, cyanosis or thyromegaly. No jugular venous distention. No lower limb edema. VITAL SIGNS: Her heart rate was 75, blood pressure was 111/71, temperature was 97.2, respiratory rate was 20, and oxygen saturation was 98% on room air. HEAD, EYES, EARS, NOSE AND THROAT: Showed normocephalic, atraumatic. NECK: Supple. HEART: Showed normal first and second heart sounds with no gallop, rub or murmur. CHEST: Clear to auscultation. No crepitation or rhonchi. ABDOMEN: Distended with left lower quadrant tenderness. No guarding or rigidity. No organomegaly. She has old surgery scars. The patient denied any vaginal discharge or bleeding. NEUROLOGIC: She is awake, alert, responding appropriately. All cranial nerves intact. EXTREMITIES: She moves extremities without difficulty. She ambulates without assistance or assistive devices. LABORATORY DATA: Her lab work on arrival showed a white cell count of 7500, hemoglobin 14, hematocrit 42, MCV 95, and platelet count 212,000. Her serum sodium was 143, potassium 3.8, chloride 106, bicarbonate 27, anion gap of 10, BUN 13, creatinine 0.8, estimated GFR was 80 mL per minute. Her glucose was 84, lactic acid was only 0.7, calcium was 8.3. Total bilirubin, AST, ALT, alkaline phosphatase were normal. Total protein was 6.7, albumin was 3.7. Her amylase and lipase were normal. Prothrombin time 12.6, INR of 1.2, APTT was 27. Her urinalysis was essentially unremarkable, showed the urine was yellow, hazy with a pH of 6, specific gravity of 1.025. The urine was negative for protein, glucose, ketones with moderate amount of blood, negative for nitrite and bilirubin, negative for leukocyte esterase. There was 11-20 rbc's, rare wbc's, and no bacteria. Her urine test was negative. She did have a CT scan of the abdomen and pelvis with and without contrast. The CT scan without contrast showed there is no obstructive uropathy and she has bilateral nonobstructing renal calculi. The CT scan of the abdomen and pelvis with oral and IV contrast showed that the urinary bladder is mostly decompressed, otherwise normal hysterectomy. She has small right ovary functional cyst demonstrating rim enhancement, small left ovarian follicles are suggested no pelvic free fluid is seen. PLAN: To continue with IV fluid, continue with pain management and antiemetic. Apparently, she has an appointment tomorrow to see her Dr. Cali, her mold repair technician at their [place] office and will be discharged tomorrow to follow up with her mold repair technician as her pain is extremely severe and not controlled with oral antibiotic. DORINA ERICKSON MD DR: ILANA/donald JOB#: [id number] / [id number]
[2019-12-11] MEDS ORDERED: ACETAMINOPHEN 325 MG TABLET PO ONE ×2 (12:00→16:00)
[2019-12-11] MEDS ORDERED: OXYC5TAB4 PO (15:09)
[2019-12-11] MEDS ORDERED: ONDA4TAB7 PO (15:09)
--- NOTE | 2019-12-11 18:24 | DS ---
DATE OF DISCHARGE: 12/11/2019 HOSPITAL COURSE: The patient was admitted with severe left lower quadrant pain. Apparently, she has been followed by her stamp mounter and she has a large left ovarian cyst. However when she came yesterday, she was extensively investigated in the Emergency Room and all her lab works were within normal range. CT scan also showed there is no acute abdominal pelvic abnormality. She has bilateral nonobstructing renal calculi and a CT abdomen and pelvis without contrast showed that her urinary bladder is normal. She underwent hysterectomy and no pelvic free fluid. Ovaries are symmetrical. There is a small right ovary functional cyst demonstrated rim enhancement, small left ovarian follicles are suggested. No pelvic free fluid seen. The patient was treated with IV fluid and subcutaneous morphine and switched to IV morphine. The patient stated that she has an appointment tomorrow to see a stamp mounter and as her pain is much better controlled she decided to go home to continue on oral pain medication and to keep an appointment tomorrow. PHYSICAL EXAMINATION: GENERAL: When I saw her this afternoon, she looked well and was clearly in no apparent respiratory distress. No pallor, jaundice, cyanosis or thyromegaly. No jugular venous distension. No lower limb edema. VITAL SIGNS: Her heart rate was 72, blood pressure was 102/65, temperature 97.8, respiratory rate was 18 and oxygen saturation was 96%. The rest of clinical exam is stable. FINAL DISCHARGE DIAGNOSES: Severe left lower quadrant pain, no obvious cause available. The patient will be discharged home to continue on oral oxycodone 5 mg immediate release every 4 hours as well as Zofran and was advised to keep the appointment tomorrow with her stamp mounter. Other problems include abdominal pain, history of endometriosis, nephrolithiasis requiring surgical removal about 3 times. She also has morbid obesity for which she underwent laparoscopic band surgery. DORINA ERICKSON MD DR: ILANA/donald JOB#: [id number] / [id number]
== END 2019-12-11 15:41 | disposition home or self-care (01) ==
LOC: ER 20:39 → 1 SOUTH 12-11 03:30 → INTOOBSV 12-11 03:30
PROVIDERS: ADMIT Internal Medicine; ATTEND Internal Medicine
DX: N83.202 Unspecified ovarian cyst, left side (principal); N20.0 Calculus of kidney; R10.32 Left lower quadrant pain; E66.01 Morbid (severe) obesity due to excess calories; F17.200 Nicotine dependence, unspecified, uncomplicated; R11.2 Nausea with vomiting, unspecified; R10.9 Unspecified abdominal pain; R31.9 Hematuria, unspecified; Z87.19 Personal history of other diseases of the digestive system; Z79.899 Other long term (current) drug therapy; Z87.442 Personal history of urinary calculi; Z88.0 Allergy status to penicillin; Z90.711 Acquired absence of uterus with remaining cervical stump
CPT/HCPCS: 36415; 74022; 74176; 74177; 80048; 80076; 81001; 81025; 82150; 82553; 83605; 83690; 84484; 84702; 85025; 85610; 85730; 93005; 96361; 96372; 96374; 96375; 96376; 99284; G0238; G0378; J0780; J1200; J1885; J2270; J2405; J3490; J7120; Q9966; Q9967; G0379; 99285-25

== ENCOUNTER 2020-01-12 15:21 | Emergency (ER) | payer OTHER ==
[~2020-01-12] VITALS: Ht 165.1 cm; Wt 75.0 kg
[~2020-01-12 15:21] MED LIST changes: +ACET500T68 PO; +HYDR-1179 PO; +IBUP-4 PO; +IBUP400T18 PO; +ONDA4TAB7 PO; +ONDA8TAB9 PO; +OXYC5TAB4 PO
[2020-01-12] MEDS ORDERED: ONDANSETRON PF 4 MG/2 ML VIAL. IVP ONE (15:45)
[2020-01-12] MEDS ORDERED: IV NORMAL SALINE 1,000ML 1,000 ML IV ONE (15:45)
--- NOTE | 2020-01-12 15:45 | PHYS DOC ---
Past History Past Medical History: Endometriosis, Kidney Stones, Ovarian Cyst, Other Additional Past Medical Histor: double uterers on left Past Surgical History: Cholecystectomy, Hysterectomy, Other Additional Past Surgical Histo: surgeries for kidney stones; lap band Smoking: Non-smoker Alcohol Use: Rarely Drug Use: None Adult General Chief Complaint Chief Complaint: FLANK PAIN HPI HPI Patient is a 39-year-old female who complains of right flank pain since yesterday consistent with previous ureteral stones. Patient states she has had to have multiple surgeries in the past for stone removal and they are normally on the left side. She complains of some hematuria as well. Pain is moderate to severe. Review of Systems Review of Systems Constitutional: Denies fever or chills [] Eyes: Denies change in visual acuity, redness, or eye pain [] HENT: Denies nasal congestion or sore throat [] Respiratory: Denies cough or shortness of breath [] Cardiovascular: No additional information not addressed in HPI [] GI: Denies abdominal pain, nausea, vomiting, bloody stools or diarrhea [] : Denies dysuria or hematuria [] Musculoskeletal: Denies back pain or joint pain [] Integument: Denies rash or skin lesions [] Neurologic: Denies headache, focal weakness or sensory changes [] Endocrine: Denies polyuria or polydipsia [] All other systems were reviewed and found to be within normal limits, except as documented in this note. Allergies Allergies Allergies Coded Allergies Type Severity Reaction Last Updated Verified amoxicillin Allergy Unknown 10/09/19 Yes calamine Allergy Unknown 10/09/19 Yes Physical Exam Physical Exam Constitutional: Well developed, well nourished, uncomfortable, holding right side, non-toxic appearance. [] HENT: Normocephalic, atraumatic, bilateral external ears normal, oropharynx moist, no oral exudates, nose normal. [] Eyes: PERRLA, EOMI, conjunctiva normal, no discharge. [] Neck: Normal range of motion, no tenderness, supple, no stridor. [] Cardiovascular:Heart rate regular rhythm, no murmur [] Lungs & Thorax: Bilateral breath sounds clear to auscultation [] Abdomen: Bowel sounds normal, soft, no tenderness, no masses, no pulsatile masses. [] Skin: Warm, dry, no erythema, no rash. [] Back: No tenderness, no CVA tenderness. [] Extremities: No tenderness, no cyanosis, no clubbing, ROM intact, no edema. [] Neurologic: Alert and oriented X 3, normal motor function, normal sensory function, no focal deficits noted. [] Psychologic: Affect normal, judgement normal, mood normal. [] EKG EKG [] Radiology/Procedures Radiology/Procedures Study: CT abdomen/pelvis without intravenous contrast Indication: Right flank pain. Comparison: 12/11/2019 Technique: Helical CT imaging performed of the abdomen and pelvis without the use of intravenous contrast. Sagittal and coronal reformats were obtained. One or more of the following individualized dose reduction techniques were utilized for this examination: 1. Automated exposure control 2. Adjustment of the mA and/or kV according to patient size 3. Use of iterative reconstruction technique. Findings: Inherently limited evaluation without intravenous contrast. Chest: Unremarkable. Liver: Elongated right hepatic lobe again noted extending below the iliac crest. Gallbladder/Biliary Tree: Surgically absent gallbladder. Pancreas: Unremarkable. Spleen: Unchanged to include a benign low-attenuation focus measuring 0.8 cm. Adrenal Glands: Unchanged. Kidneys/Ureters/Bladder: Hydronephrosis on the right in the setting of a ureteropelvic junction stone measuring 4.5 mm, image 35 series 3. Small intrarenal stones present bilaterally as well. No collecting system dilatation on the left. Unremarkable bladder. Reproductive Organs: Right ovarian cyst measuring up to 3.3 cm and a few adjacent follicles. Colon: A few colonic diverticuli are present without diverticulitis. Appendix: No inflammatory changes along its expected course. Small Bowel: Nonobstructed. Stomach: Lap band device again noted. Positioning is unchanged. Less pronounced ectasia of the distal esophagus and the portion of the stomach above the device relative to the prior. Vasculature: Unremarkable. Lymph Nodes: Nonsuspicious. Peritoneum and Body Wall: Redemonstrated surgical changes along the ventral aspect of the pelvic wall. Small amount of free pelvic fluid. Bones: No acute or aggressive osseous process. Miscellaneous: None. Impression: 1. Hydronephrosis on the right in the setting of a ureteropelvic junction stone measuring 4.5 cm. Several additional intrarenal stones bilaterally. No collecting system dilatation on the left. 2. Right ovarian cyst measuring up to 3.3 cm. No suspicious features by CT and this does not warrant dedicated follow-up based on patient age. 3. Unchanged positioning of a lap band device. 4. Unchanged additional findings as above.[] Course & Med Decision Making Course & Med Decision Making Pertinent Labs and Imaging studies reviewed. (See chart for details) Patient seen for right flank pain. CT scan reveals a 4.5 mm right ureteropelvic junction stone with some hydronephrosis. Labs are unremarkable. Patient will be given pain medication and discharged home with prescriptions for pain medication and she is instructed to follow-up with her urologist for further care and evaluation. Return precautions have been given. Dragon Disclaimer Dragon Disclaimer This electronic medical record was generated, in whole or in part, using a voice recognition dictation system. Departure Departure: Impression: Primary Impression: Right ureteral stone Disposition: HOME, SELF-CARE Condition: STABLE Referrals: GEOVANNY CALHOUN DO (PCP) Patient Instructions: Kidney Stones Additional Instructions: Please follow-up with your urologist for further care and evaluation. There is a chance you could pass the stone on your own. If you develop a fever or your pain worsens you may return to the ER Scripts Tamsulosin Hcl (FLOMAX) 0.4 Mg Cap.er.24h 1 CAP PO DAILY for Ureteral Stone, #14 CAP 0 Refills Prov: EVITA DOHERTY DO 01/12/20 Ibuprofen (IBUPROFEN) 800 Mg Tablet 1 TAB PO TID for Pain, #30 TAB Prov: EVITA DOHERTY DO 01/12/20 Oxycodone Hcl/Acetaminophen (PERCOCET 10-325 MG TABLET ) 1 Each Tablet 1 TAB PO PRN QID PRN for PAIN MDD 4 Tablet(s) for 5 Days, #20 TAB 0 Refills Prov: EVITA DOHERTY DO 01/12/20 EVITA DOHERTY DO Jan 12, 2020 15:45
[2020-01-12] MEDS ORDERED: KETOROLAC 30 MG/ML VIAL. IVP ONE (16:00)
--- NOTE | 2020-01-12 16:33 | RAD ---
Study: CT abdomen/pelvis without intravenous contrast Indication: Right flank pain. Comparison: 12/11/2019 Technique: Helical CT imaging performed of the abdomen and pelvis without the use of intravenous contrast. Sagittal and coronal reformats were obtained. One or more of the following individualized dose reduction techniques were utilized for this examination: 1. Automated exposure control 2. Adjustment of the mA and/or kV according to patient size 3. Use of iterative reconstruction technique. Findings: Inherently limited evaluation without intravenous contrast. Chest: Unremarkable. Liver: Elongated right hepatic lobe again noted extending below the iliac crest. Gallbladder/Biliary Tree: Surgically absent gallbladder. Pancreas: Unremarkable. Spleen: Unchanged to include a benign low-attenuation focus measuring 0.8 cm. Adrenal Glands: Unchanged. Kidneys/Ureters/Bladder: Hydronephrosis on the right in the setting of a ureteropelvic junction stone measuring 4.5 mm, image 35 series 3. Small intrarenal stones present bilaterally as well. No collecting system dilatation on the left. Unremarkable bladder. Reproductive Organs: Right ovarian cyst measuring up to 3.3 cm and a few adjacent follicles. Colon: A few colonic diverticuli are present without diverticulitis. Appendix: No inflammatory changes along its expected course. Small Bowel: Nonobstructed. Stomach: Lap band device again noted. Positioning is unchanged. Less pronounced ectasia of the distal esophagus and the portion of the stomach above the device relative to the prior. Vasculature: Unremarkable. Lymph Nodes: Nonsuspicious. Peritoneum and Body Wall: Redemonstrated surgical changes along the ventral aspect of the pelvic wall. Small amount of free pelvic fluid. Bones: No acute or aggressive osseous process. Miscellaneous: None. Impression: 1. Hydronephrosis on the right in the setting of a ureteropelvic junction stone measuring 4.5 cm. Several additional intrarenal stones bilaterally. No collecting system dilatation on the left. 2. Right ovarian cyst measuring up to 3.3 cm. No suspicious features by CT and this does not warrant dedicated follow-up based on patient age. 3. Unchanged positioning of a lap band device. 4. Unchanged additional findings as above. Electronically signed by: DIMITRI GONZALEZ MD (01/12/2020 4:31 PM) [id number]
[2020-01-12 16:37] VITALS: BP 116/56
[2020-01-12 16:40] LABS: CALCIUM 8.7 mg/dL (8.5-10.1); CREATININE 0.6 mg/dL (0.6-1.0); GFR 111.9; POTASSIUM 3.9 mmol/L (3.5-5.1)
[2020-01-12] MEDS ORDERED: HYDROmorphone PF 1 MG/ML DISP.SYRIN IV ONE (16:45)
[2020-01-12 16:46] LABS: ALBUMIN 3.8 g/dL (3.4-5.0); ALBUMIN/GLOBULIN RATIO 1.3 (1.0-1.7); TOTAL BILIRUBIN 1.4 mg/dL (0.2-1.0); TOTAL PROTEIN 6.7 g/dL (6.4-8.2)
[2020-01-12 17:01] LABS: BASO # 0.1 x10^3/uL (0.0-0.2); BASO % 1 % (0-3); EOS % 1 % (0-3); HEMATOCRIT 40.7 % (36.0-47.0); HEMOGLOBIN 13.4 g/dL (12.0-15.5); LYMPH # 1.3 x10^3/uL (1.0-4.8); LYMPH % 20 % (24-48); MEAN CORPUSCULAR HEMOGLOBIN 32 pg (25-35); MEAN CORPUSCULAR HGB CONC 33 g/dL (31-37); MEAN CORPUSCULAR VOLUME 96 fL (79-100); MONO # 0.4 x10^3/uL (0.0-1.1); MONO % 6 % (0-9); NEUT # 4.6 x10^3uL (1.8-7.7); NEUT % 73 % (31-73); PLATELET COUNT 213 x10^3/uL (140-400); RED BLOOD COUNT 4.23 x10^6/uL (3.50-5.40); RED CELL DISTRIBUTION WIDTH 14.4 % (11.5-14.5); WHITE BLOOD COUNT 6.4 x10^3/uL (4.0-11.0)
[2020-01-12] MEDS ORDERED: IBUP800T19 PO (17:24)
[2020-01-12] MEDS ORDERED: TAMS0.4C97 PO (17:24)
[2020-01-12] MEDS ORDERED: OXYC1TAB22 PO (17:24)
[2020-01-12 17:57] LABS: BILIRUBIN,URINE NEG (NEG); CLARITY,URINE CLEAR; COLOR,URINE YELLOW; GLUCOSE,URINE NEG (NEG); NITRITE,URINE NEG (NEG); UROBILINOGEN,URINE 0.2 mg/dL (0.2 mg/dL)
[2020-01-12 17:58] LABS: BACTERIA,URINE FEW /HPF (0-FEW); RBC,URINE 20-40 /HPF (0-2); SQUAMOUS EPITHELIAL CELL,UR FEW /LPF
[2020-01-12] MEDS ORDERED: TAMSULOSIN 0.4 MG CAP.ER.24H. PO ONE (18:00)
[2020-01-12] MEDS ORDERED: oxyCODONE/APAP 5/325 1 TAB TABLET PO ONE (18:00)
[2020-01-12] MEDS ORDERED: HYDROmorphone PF 1 MG/ML DISP.SYRIN IM ONE (18:00)
== END 2020-01-12 15:57 | disposition home or self-care (01) ==
LOC: ER 15:21
DX: N13.2 Hydronephrosis with renal and ureteral calculous obstruction (principal); Z87.442 Personal history of urinary calculi; Z90.710 Acquired absence of both cervix and uterus; Z90.49 Acquired absence of other specified parts of digestive tract; Z88.1 Allergy status to other antibiotic agents; Z88.8 Allergy status to other drugs, medicaments and biological substances
CPT/HCPCS: 36415; 74176; 80053; 81001; 83690; 85025; 96372; 96374; 96375; 99284; J1170; J1885; J2405; J7030

== ENCOUNTER 2020-01-13 00:47 | Emergency (ER) | payer OTHER ==
[2020-01-12 16:37] VITALS: BP 116/56
[~2020-01-13 00:47] MED LIST changes: +IBUP800T19 PO; +OXYC1TAB22 PO
[2020-01-13] MEDS ORDERED: ONDANSETRON PF 4 MG/2 ML VIAL. ONE ×2 (01:11→04:33)
[2020-01-13] MEDS ORDERED: KETOROLAC 30 MG/ML VIAL. ONE (01:11)
[2020-01-13] MEDS ORDERED: IV NORMAL SALINE 1,000ML 1,000 ML IV ONE (01:15)
[2020-01-13] MEDS ORDERED: MORPHINE SULFATE 4 MG/ML DISP.SYRIN. IV ONE (01:15)
[2020-01-13] MEDS ORDERED: KETOROLAC 30 MG/ML VIAL. IVP ONE (01:15)
[2020-01-13] MEDS ORDERED: ONDANSETRON PF 4 MG/2 ML VIAL. IVP ONE (01:15)
[2020-01-13] MEDS ORDERED: MORPHINE SULFATE 4 MG/ML DISP.SYRIN. ONE (01:17)
[2020-01-13] MEDS ORDERED: HYDROmorphone PF 1 MG/ML DISP.SYRIN ONE ×3 (01:46→05:01)
--- NOTE | 2020-01-13 13:06 | RAD ---
EXAM: Abdomen and pelvis CT without intravenous contrast. HISTORY: Nephrolithiasis. TECHNIQUE: Computed tomographic images of the abdomen and pelvis were obtained without contrast. Multiplanar reformatting was performed. *One or more of the following individualized dose reduction techniques were utilized for this examination: 1. Automated exposure control. 2. Adjustment of the mA and/or kV according to patient size. 3. Use of iterative reconstruction technique. COMPARISON: 01/12/2020. FINDINGS: Evaluation of the lower thorax demonstrates no infiltrate or pleural effusion. The heart is normal in size. There is a slightly patulous esophagus containing air and fluid, stable in appearance. There is a gastric lap band unchanged in position. There is a 1.7 cm hypodense lesion within the left hepatic lobe. The gallbladder surgically absent. There is an elongated suspected Steff's lobe, a normal variant. There is biliary ductal dilatation likely due to reservoir effect status post cholecystectomy. The pancreas is unremarkable. There is a suspected 1.0 cm cyst within the spleen. There is a small splenule adjacent to the spleen. The adrenal glands are unremarkable. There has been no significant change in moderate to severe hydronephrosis and hydroureter extending to a 5 mm stone within the proximal ureter no significant interval stone migration is seen. There are several small nonobstructing bilateral renal stones, the largest of which measures 3 mm on the left. There is suspected nephrocalcinosis. There is a partially duplicated left renal collecting system. The bladder is nearly empty. There is no appendicitis. There is no bowel obstruction. There is no abnormal bowel wall thickening. The uterus is absent. There is a 2.8 cm dominant right ovarian follicle/follicular cyst. There is trace pelvic free fluid. There is no lymphadenopathy. There is no suspicious osseous lesion. There are multiple endplate Schmorl's nodes. IMPRESSION: 1. No significant change in moderate to severe right hydronephrosis and hydroureter extending to a 5 mm stone within the proximal ureter. There are additional nonobstructing bilateral renal stones which are also stable in appearance. 2. 2.8 cm dominant right ovarian follicle/follicular cyst. This appears slightly decreased in size when allowing for differences in measurement technique. 3. Small splenic cyst. 4. Small indeterminate hypodense lesion within the left hepatic lobe. In the absence of known primary malignancy, this may be due to focal fatty deposition or hemangioma. Is difficult to assess in the absence of contrast and may be visible sonographically. 5. Gastric lap band. 6. Note is made that a small cyst within the right kidney demonstrated on prior studies is not well seen due to the absence of contrast. 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 Electronically signed by: Janis Hatfield MD (01/13/2020 1:03 PM) [facility] [place]
[2020-01-13 15:09] LABS: HEMATOCRIT 39.2 % (36.0-47.0); RED BLOOD COUNT 4.08 x10^6/uL (3.50-5.40); WHITE BLOOD COUNT 5.7 x10^3/uL (4.0-11.0)
[2020-01-13 15:10] LABS: BASO # 0.1 x10^3/uL (0.0-0.2); BASO % 1 % (0-3); EOS # 0.1 x10^3/uL (0.0-0.7); EOS % 1 % (0-3); LYMPH # 1.5 x10^3/uL (1.0-4.8); LYMPH % 26 % (24-48); MEAN CORPUSCULAR HEMOGLOBIN 32 pg (25-35); MEAN CORPUSCULAR HGB CONC 33 g/dL (31-37); MEAN CORPUSCULAR VOLUME 96 fL (79-100); MONO # 0.4 x10^3/uL (0.0-1.1); MONO % 8 % (0-9); NEUT # 3.7 x10^3uL (1.8-7.7); NEUT % 65 % (31-73); PLATELET COUNT 199 x10^3/uL (140-400); RED CELL DISTRIBUTION WIDTH 14.5 % (11.5-14.5)
[2020-01-13 15:12] LABS: ALBUMIN 3.7 g/dL (3.4-5.0); ALBUMIN/GLOBULIN RATIO 1.4 (1.0-1.7); CALCIUM 8.5 mg/dL (8.5-10.1); CREATININE 0.6 mg/dL (0.6-1.0); GFR 111.9; TOTAL BILIRUBIN 1.9 mg/dL (0.2-1.0); TOTAL PROTEIN 6.3 g/dL (6.4-8.2)
[2020-01-13 15:13] LABS: POTASSIUM 4.1 mmol/L (3.5-5.1)
--- NOTE | 2020-01-13 18:26 | PHYS DOC ---
Past History Past Medical History: No Pertinent History Additional Past Medical Histor: double uterers on left Past Surgical History: Cholecystectomy, Other Additional Past Surgical Histo: lap band Smoking: Non-smoker Alcohol Use: Rarely Drug Use: None Adult General Chief Complaint Chief Complaint: flank pain HPI HPI 39-year-old female returns emergency room with continued right flank pain. The patient was seen in this emergency room earlier in the day was found to have a 4.5 cm stone at the right UPJ. She returns to the emergency room because pain is uncontrollable. She is very uncomfortable. She is also been unable to urinate for a few hours. She denies fever or chills. She has no other new symptoms. Review of Systems Review of Systems Constitutional: Denies fever or chills [] Eyes: Denies change in visual acuity, redness, or eye pain [] HENT: Denies nasal congestion or sore throat [] Respiratory: Denies cough or shortness of breath [] Cardiovascular: No additional information not addressed in HPI [] GI: Denies abdominal pain, nausea, vomiting, bloody stools or diarrhea [] : Urinary retention, right flank pain[] Musculoskeletal: Denies back pain or joint pain [] Integument: Denies rash or skin lesions [] Neurologic: Denies headache, focal weakness or sensory changes [] Endocrine: Denies polyuria or polydipsia [] All other systems were reviewed and found to be within normal limits, except as documented in this note. Current Medications Current Medications Current Medications Medications (Trade) Dose Ordered Sig/Shila Start Time Stop Time Status Last Admin Dose Admin Ketorolac Tromethamine (Toradol 30mg Vial) 30 mg 1X ONCE 01/13/20 01:15 01/13/20 14:50 DC Morphine Sulfate (Morphine 4mg Syringe) 4 mg 1X ONCE 01/13/20 01:15 01/13/20 14:58 DC Ondansetron HCl (Zofran) 4 mg 1X ONCE 01/13/20 01:15 01/13/20 14:58 DC Sodium Chloride 1,000 ml @ 1,000 mls/hr 1X ONCE 01/13/20 01:15 01/13/20 14:50 DC Allergies Allergies Allergies Coded Allergies Type Severity Reaction Last Updated Verified amoxicillin Allergy Unknown 10/09/19 Yes calamine Allergy Unknown 10/09/19 Yes Physical Exam Physical Exam Constitutional: Well developed, well nourished, moderate acute distress, non- toxic appearance. [] HENT: Normocephalic, atraumatic, bilateral external ears normal, oropharynx moist, no oral exudates, nose normal. [] Eyes: PERRLA, EOMI, conjunctiva normal, no discharge. [] Neck: Normal range of motion, no tenderness, supple, no stridor. [] Cardiovascular:Heart rate regular rhythm, no murmur [] Lungs & Thorax: Bilateral breath sounds clear to auscultation [] Abdomen: Bowel sounds normal, soft, no tenderness, no masses, no pulsatile masses. [] Skin: Warm, dry, no erythema, no rash. [] Back: No tenderness, right CVA tenderness. [] Extremities: No tenderness, no cyanosis, no clubbing, ROM intact, no edema. [] Neurologic: Alert and oriented X 3, normal motor function, normal sensory function, no focal deficits noted. [] Psychologic: Affect normal, judgement normal, mood normal. [] Current Patient Data Lab Results Laboratory Tests Test 01/13/20 01:05 White Blood Count 5.7 x10^3/uL (4.0-11.0) Red Blood Count 4.08 x10^6/uL (3.50-5.40) Hemoglobin 13.0 g/dL (12.0-15.5) Hematocrit 39.2 % (36.0-47.0) Mean Corpuscular Volume 96 fL (79-100) Mean Corpuscular Hemoglobin 32 pg (25-35) Mean Corpuscular Hemoglobin Concent 33 g/dL (31-37) Red Cell Distribution Width 14.5 % (11.5-14.5) Platelet Count 199 x10^3/uL (140-400) Neutrophils (%) (Auto) 65 % (31-73) Lymphocytes (%) (Auto) 26 % (24-48) Monocytes (%) (Auto) 8 % (0-9) Eosinophils (%) (Auto) 1 % (0-3) Basophils (%) (Auto) 1 % (0-3) Neutrophils # (Auto) 3.7 x10^3uL (1.8-7.7) Lymphocytes # (Auto) 1.5 x10^3/uL (1.0-4.8) Monocytes # (Auto) 0.4 x10^3/uL (0.0-1.1) Eosinophils # (Auto) 0.1 x10^3/uL (0.0-0.7) Basophils # (Auto) 0.1 x10^3/uL (0.0-0.2) Sodium Level 143 mmol/L (136-145) Potassium Level 4.1 mmol/L (3.5-5.1) Chloride Level 105 mmol/L (98-107) Carbon Dioxide Level 28 mmol/L (21-32) Anion Gap 10 (6-14) Blood Urea Nitrogen 7 mg/dL (7-20) Creatinine 0.6 mg/dL (0.6-1.0) Estimated GFR (Cockcroft-Gault) 111.9 BUN/Creatinine Ratio 12 (6-20) Glucose Level 87 mg/dL (70-99) Calcium Level 8.5 mg/dL (8.5-10.1) Total Bilirubin 1.9 mg/dL (0.2-1.0) H Aspartate Amino Transferase (AST) 160 U/L (15-37) H Alanine Aminotransferase (ALT) 100 U/L (14-59) H Alkaline Phosphatase 85 U/L (46-116) Total Protein 6.3 g/dL (6.4-8.2) L Albumin 3.7 g/dL (3.4-5.0) Albumin/Globulin Ratio 1.4 (1.0-1.7) EKG EKG [] Radiology/Procedures Radiology/Procedures [] Impressions: PROCEDURE: CT ABDOMEN PELVIS WO CONTRAST EXAM: Abdomen and pelvis CT without intravenous contrast. HISTORY: Nephrolithiasis. TECHNIQUE: Computed tomographic images of the abdomen and pelvis were obtained without contrast. Multiplanar reformatting was performed. *One or more of the following individualized dose reduction techniques were utilized for this examination: 1. Automated exposure control. 2. Adjustment of the mA and/or kV according to patient size. 3. Use of iterative reconstruction technique. COMPARISON: 01/12/2020. FINDINGS: Evaluation of the lower thorax demonstrates no infiltrate or pleural effusion. The heart is normal in size. There is a slightly patulous esophagus containing air and fluid, stable in appearance. There is a gastric lap band unchanged in position. There is a 1.7 cm hypodense lesion within the left hepatic lobe. The gallbladder surgically absent. There is an elongated suspected Steff's lobe, a normal variant. There is biliary ductal dilatation likely due to reservoir effect status post cholecystectomy. The pancreas is unremarkable. There is a suspected 1.0 cm cyst within the spleen. There is a small splenule adjacent to the spleen. The adrenal glands are unremarkable. There has been no significant change in moderate to severe hydronephrosis and hydroureter extending to a 5 mm stone within the proximal ureter no significant interval stone migration is seen. There are several small nonobstructing bilateral renal stones, the largest of which measures 3 mm on the left. There is suspected nephrocalcinosis. There is a partially duplicated left renal collecting system. The bladder is nearly empty. There is no appendicitis. There is no bowel obstruction. There is no abnormal bowel wall thickening. The uterus is absent. There is a 2.8 cm dominant right ovarian follicle/follicular cyst. There is trace pelvic free fluid. There is no lymphadenopathy. There is no suspicious osseous lesion. There are multiple endplate Schmorl's nodes. IMPRESSION: 1. No significant change in moderate to severe right hydronephrosis and hydroureter extending to a 5 mm stone within the proximal ureter. There are additional nonobstructing bilateral renal stones which are also stable in appearance. 2. 2.8 cm dominant right ovarian follicle/follicular cyst. This appears slightly decreased in size when allowing for differences in measurement technique. 3. Small splenic cyst. 4. Small indeterminate hypodense lesion within the left hepatic lobe. In the absence of known primary malignancy, this may be due to focal fatty deposition or hemangioma. Is difficult to assess in the absence of contrast and may be visible sonographically. 5. Gastric lap band. 6. Note is made that a small cyst within the right kidney demonstrated on prior studies is not well seen due to the absence of contrast. 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 Electronically signed by: Janis Hatfield MD (01/13/2020 1:03 PM) [facility] [place] DICTATED AND SIGNED BY: JANIS HATFIELD MD DATE: 01/13/20 [id number] CC: KODAK MUELLER DO; PCP,UNKNOWN ~ Course & Med Decision Making Course & Med Decision Making Pertinent Labs and Imaging studies reviewed. (See chart for details) The patient was very comfortable throughout her stay in the emergency room. She was given 4 mg of morphine, 30 mg of Toradol, and 2 different doses 1 mg of Dilaudid for her pain. In the pain bearable, but it is still moderate in intensity. I believe the patient needs to be admitted for pain control as well as treatment for her stone which appears to be obstructing. See official CT for more details. I spoke with Dr. Riddle at [facility] and he has accepted the patient for transfer and admission to [facility]. [] Dragon Disclaimer Dragon Disclaimer This electronic medical record was generated, in whole or in part, using a voice recognition dictation system. Departure Departure: Impression: Primary Impression: Kidney stone on right side Disposition: XFER SHT-TRM HOSP Condition: STABLE Referrals: PCP,UNKNOWN (PCP) KODAK MUELLER DO Jan 13, 2020 18:26
== END 2020-01-13 05:26 | disposition short-term general hospital (02) ==
LOC: ER 00:47
DX: N13.2 Hydronephrosis with renal and ureteral calculous obstruction (principal); Z88.1 Allergy status to other antibiotic agents; Z88.8 Allergy status to other drugs, medicaments and biological substances
CPT/HCPCS: 36415; 74176; 80053; 85025; 96374; 96375; 99285; J1885; J2270; J2405; J7030

== ENCOUNTER 2020-06-09 21:07 | Emergency (ER) | payer OTHER ==
[~2020-06-09] VITALS: Ht 165.1 cm; Wt 71.8 kg
--- NOTE | 2020-06-09 21:27 | PHYS DOC ---
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 Was concern for kidney stone and states she has had bilateral stents placed at 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 ROS: Denies associated fever, chills, sore throat, cough, diarrhea, chest pain or pressure, dyspnea, hemoptysis, leg swelling, rash, headache, neck stiffness, diaphoresis or syncope. Review of Systems: Review of Systems: Constitutional: Denies fever or chills Eyes: Denies change in visual acuity HENT: Denies nasal congestion or sore throat Respiratory: Denies cough or shortness of breath Cardiovascular: Denies chest pain or edema GI: Denies abdominal pain, nausea, vomiting, bloody stools or diarrhea : Denies dysuria Musculoskeletal: Denies back pain or joint pain Integument: Denies rash Neurologic: Denies headache, focal weakness or sensory changes Endocrine: Denies polyuria or polydipsia Lymphatic: Denies swollen glands Psychiatric: Denies depression or anxiety Allergies: Allergies: Allergies Coded Allergies Type Severity Reaction Last Updated Verified amoxicillin Allergy Unknown 10/09/19 Yes calamine Allergy Unknown 10/09/19 Yes Physical Exam: PE: Constitutional: Well developed,uncomfortable, in pain HENT: Normocephalic, atraumatic, bilateral external ears normal, oropharynx moist, no oral exudates, nose normal. [] Eyes: EOMI, conjunctiva normal, no discharge. [] Neck: Normal range of motion, no tenderness, supple, no stridor. [] Cardiovascular:Heart rate regular rhythm, no murmur [] Lungs & Thorax: Bilateral breath sounds clear to auscultation [] Abdomen: Bowel sounds normal, soft, no tenderness, no masses, no pulsatile masses. [] Skin: Warm, dry, no erythema, no rash. [] Back: No tenderness, +left flank pain - cups hands over skin over her left hip Extremities: No tenderness, no cyanosis, no clubbing, ROM intact, no edema. [] Neurologic: Alert and oriented X 3, normal motor function, normal sensory function, no focal deficits noted. [] Psychologic: Affect normal, judgement normal, mood normal. [] EKG: EKG: Sinus rhythm at 65 bpm, no axis deviation, normal intervals, no T wave inversions, no ST elevations or ST depressions Radiology/Procedures: Radiology/Procedures: IMAGING REPORT Signed PATIENT: NILTON CASEY ACCOUNT: [id number] : 1980 LOCATION: ER AGE: 39 SEX: F EXAM STATUS: REG ER ORD. PHYSICIAN: KATELYN ORTIZ DO REASON: left flank pain PROCEDURE: CT ABDOMEN PELVIS WO CONTRAST Exam: CT of abdomen and pelvis without contrast INDICATION: Left flank pain TECHNIQUE: Sequential axial images through the abdomen and pelvis obtained without IV contrast. Sagittal and coronal reformatted images were reconstructed from the axial data and reviewed. Comparisons: 01/13/2020 FINDINGS: Heart size is normal. No pericardial effusion. Visualized lung bases are clear. No pleural effusion. Evaluation of the solid organs is limited secondary to noncontrast technique. Liver, spleen, pancreas, and adrenals are unremarkable. Gallbladder surgically absent. No perinephric inflammation or hydronephrosis. Several nonobstructing right renal calculi are noted. No ureteral calculi are seen. Bladder is decompressed not well evaluated. Uterus is absent. There is a cystic lesion in the left adnexa which measures approximately 3.5 cm. Large and small bowel are unremarkable. Gastric banding device is noted. Appendix is is not identified. No free abdominal air or fluid. No obstruction. Abdominal aorta has a normal course and caliber. No enlarged abdominal lymph nodes are identified. No suspicious osseous lesions or acute fractures. IMPRESSION: 1. No renal or ureteral calculi. No evidence for obstructive uropathy. 2. A 3.5 cm cystic lesion at the left adnexa, likely ovarian in etiology. Exposure: One or more of the following in the visualized dose reduction techniques were utilized for this examination: 1. Automated exposure control 2. Adjustment of the MA and/or KV according to patient size 3. Use of iterative of reconstructive technique Electronically signed by: Mi Acuna MD (06/09/2020 10:24 PM) [id number] DICTATED AND SIGNED BY: MI ACUNA MD DATE: 06/09/202223 CC: PCP,UNKNOWN; KATELYN ORTIZ DO ~ IMAGING REPORT Signed PATIENT: NILTON CASEY ACCOUNT: [id number] : 1980 LOCATION: ER AGE: 39 SEX: F EXAM STATUS: REG ER ORD. PHYSICIAN: KATELYN ORTIZ DO REASON: evaluate for left torsion PROCEDURE: TRANSVAGINAL Complete transvaginal pelvic ultrasound HISTORY: Left ovarian. COMPARISON: CT abdomen and pelvis June 09, 2020. FINDINGS: Uterus surgically absent. There are numerous pelvic bowel loops with due to shadowing. Small volume of free fluid surrounding bowel loops within the pelvis noted. Left ovary measures 2.9 x 2.4 x 2.5 cm. There is intact ovarian blood flow without evidence of torsion. There are small left ovarian follicles. There is a partially exophytic left ovarian 1.7 cm simple cyst with internal versus typical of a cumulus oophorus. There is a left ovarian oval hypoechoic avascular focus measuring 1.4 cm likely a corpus luteum or hemorrhagic cyst. Right ovary measures 2.5 x 1.3 x 1.6 cm. No evidence of right lateral recess. There is intact right ovarian blood flow with normal waveforms. IMPRESSION: 1. No evidence of ovarian torsion with intact bilateral ovarian blood flow documented. 2. There is a small volume of pelvic free fluid. 3. Hysterectomy. 4. Several left ovarian anechoic cystic foci likely follicles, as well as an exophytic 1.7 cm cumulus oophorus, and a 1.4 cm hypoechoic focus likely representing a corpus luteum or acute hemorrhagic cyst. Per ACR guidelines for incidental adnexal lesions of this size in nature follow-up pelvic sonography in 3 months is advised. Electronically signed by: Adalberto Mandujano MD (06/10/2020 12:13 AM) [facility] DICTATED AND SIGNED BY: ADALBERTO MANDUJANO MD DATE: 06/10/20 001 CC: PCP,UNKNOWN; [facility] ~ Course & Med Decision Making: Course & Med Decision Making Pertinent Labs and Imaging studies reviewed. (See chart for details) Concern for left flank pain, urinalysis with RBCs and blood. Patient afebrile with no tachycardia or leukocytosis. CT imaging showing nonobstructive right renal colliculi but no left-sided renal-,ureter- or obstructive uropathy. CT did show 3.5cm left adnexal cystic lesion and a normal aorta. Transvaginal ultrasound showed normal ovarian flow to bilateral ovaries, no torsion. There is a small amount of pelvic free fluid and an adnexal structure that will need repeat ultrasound in 3 months. I suspect given RBCs and blood that patient may have passed a stone or has very small stones. DC home with Flomax and anal gesia, strict education on taking this medication was given. Encouraged urgent follow-up with her urologist tomorrow. Strict ED return precautions were given for severe pain, dehydration or fever. Life-threatening processes were considered but have low suspicion given history and physical exam. All patient's questions were answered and she was stable at time of discharge. Differential includes aortic dissection, aortic aneurysm, acute coronary syndrome, surgical abdomen (appendicitis, cholecystitis, ischemic bowel, strangulated hernia, etc), bowel obstruction or volvulus, bladder outlet obstruction, inflammatory bowel disease, peptic ulcer disease, sepsis, diverticular disease, ureterolithiasis, nephrolithiasis, I spoken with the patient and her caregivers. I explained the patient's condition, diagnoses and treatment plan based on the information available to me at this time. I have answered the patient and her caregiver's questions and addressed any concerns. The patient and her caregivers have a good understanding of patient's diagnosis, condition and treatment plan as can be expected at this point. Vital signs have been stable. Patient's condition is stable and appropriate for discharge from the emergency department. Patient will pursue further outpatient evaluation with primary care physician or other designated or consulting physician as outlined in the discharge in structions. The patient and/or caregivers are agreeable to this plan of care and follow-up instructions have been explained in detail. The patient and/or caregivers have received these instructions in written form and have expressed an understanding of the discharge instructions. The patient and/or caregivers are aware that any significant change of condition or worsening of symptoms should prompt immediate return to this or the closest emergency department or call to 911. Genia Disclaimer: Genia Disclaimer: This electronic medical record was generated, in whole or in part, using a voice recognition dictation system. Departure Departure: Impression: Primary Impression: Left flank pain Additional Impression: Hematuria Disposition: HOME/RESIDENCE PRIOR TO ADM Condition: STABLE Referrals: PCP,UNKNOWN (PCP) Patient Instructions: Flank Pain, Hematuria, Adult Scripts Oxycodone HCl/Acetaminophen (Percocet 5-325 mg Tablet) 1 Each Tablet 1 TAB PO PRN QID PRN for PAIN MDD 4 Tablet(s) for 5 Days, #15 TAB 0 Refills Prov: KATELYN ORTIZ DO 06/10/20 Tamsulosin Hcl (FLOMAX) 0.4 Mg Cap.er.24h 0.4 MG PO DAILY for kidney stones for 10 Days, #10 CAP.SR Prov: KATELYN ORTIZ DO 06/10/20 Justification of Admission: Justification of Admission: Justification of Admission Dx: N/A KATELYN ORTIZ DO Jun 09, 2020 21:26
[2020-06-09] MEDS ORDERED: MORPHINE SULFATE 10 MG/ML SYRINGE. IV ONE (21:30)
[2020-06-09] MEDS ORDERED: ONDANSETRON PF 4 MG/2 ML VIAL. IVP ONE (21:45)
[2020-06-09 21:52] LABS: CLARITY,URINE HAZY; COLOR,URINE YELLOW
[2020-06-09 21:53] LABS: BACTERIA,URINE FEW /HPF (0-FEW); BILIRUBIN,URINE NEG (NEG); GLUCOSE,URINE NEG (NEG); NITRITE,URINE NEG (NEG); RBC,URINE 20-40 /HPF (0-2); SQUAMOUS EPITHELIAL CELL,UR FEW /LPF; UROBILINOGEN,URINE 0.2 mg/dL (0.2 mg/dL); WBC,URINE OCC /HPF (0-4)
[2020-06-09 21:55] LABS: U PREG PATIENT NEGATIVE (NEG); YEAST,URINE PRESENT /HPF
[2020-06-09 21:57] LABS: BASO # 0.1 x10^3/uL (0.0-0.2); BASO % 1 % (0-3); EOS # 0.1 x10^3/uL (0.0-0.7); EOS % 2 % (0-3); HEMATOCRIT 37.8 % (36.0-47.0); HEMOGLOBIN 12.4 g/dL (12.0-15.5); LYMPH # 1.9 x10^3/uL (1.0-4.8); LYMPH % 32 % (24-48); MEAN CORPUSCULAR HEMOGLOBIN 33 pg (25-35); MEAN CORPUSCULAR HGB CONC 33 g/dL (31-37); MEAN CORPUSCULAR VOLUME 99 fL (79-100); MONO # 0.5 x10^3/uL (0.0-1.1); MONO % 8 % (0-9); NEUT # 3.4 x10^3uL (1.8-7.7); NEUT % 57 % (31-73); PLATELET COUNT 203 x10^3/uL (140-400); RED BLOOD COUNT 3.81 x10^6/uL (3.50-5.40); RED CELL DISTRIBUTION WIDTH 16.3 % (11.5-14.5)
[2020-06-09 21:59] LABS: CALCIUM 8.6 mg/dL (8.5-10.1); CREATININE 0.9 mg/dL (0.6-1.0); GFR 70.1; POTASSIUM 3.8 mmol/L (3.5-5.1)
[2020-06-09 22:05] LABS: ALBUMIN 3.5 g/dL (3.4-5.0); ALBUMIN/GLOBULIN RATIO 1.2 (1.0-1.7); TOTAL BILIRUBIN 0.7 mg/dL (0.2-1.0); TOTAL PROTEIN 6.4 g/dL (6.4-8.2)
--- NOTE | 2020-06-09 22:27 | RAD ---
Exam: CT of abdomen and pelvis without contrast INDICATION: Left flank pain TECHNIQUE: Sequential axial images through the abdomen and pelvis obtained without IV contrast. Sagittal and coronal reformatted images were reconstructed from the axial data and reviewed. Comparisons: 01/13/2020 FINDINGS: Heart size is normal. No pericardial effusion. Visualized lung bases are clear. No pleural effusion. Evaluation of the solid organs is limited secondary to noncontrast technique. Liver, spleen, pancreas, and adrenals are unremarkable. Gallbladder surgically absent. No perinephric inflammation or hydronephrosis. Several nonobstructing right renal calculi are noted. No ureteral calculi are seen. Bladder is decompressed not well evaluated. Uterus is absent. There is a cystic lesion in the left adnexa which measures approximately 3.5 cm. Large and small bowel are unremarkable. Gastric banding device is noted. Appendix is is not identified. No free abdominal air or fluid. No obstruction. Abdominal aorta has a normal course and caliber. No enlarged abdominal lymph nodes are identified. No suspicious osseous lesions or acute fractures. IMPRESSION: 1. No renal or ureteral calculi. No evidence for obstructive uropathy. 2. A 3.5 cm cystic lesion at the left adnexa, likely ovarian in etiology. Exposure: One or more of the following in the visualized dose reduction techniques were utilized for this examination: 1. Automated exposure control 2. Adjustment of the MA and/or KV according to patient size 3. Use of iterative of reconstructive technique Electronically signed by: Mi Camacho MD (06/09/2020 10:24 PM) [id number]
[2020-06-09] MEDS ORDERED: HYDROmorphone PF 1 MG/ML DISP.SYRIN IM ONE (23:00)
[2020-06-09] MEDS ORDERED: HYDROmorphone PF 1 MG/ML DISP.SYRIN IV ONE (23:45)
--- NOTE | 2020-06-10 00:15 | RAD ---
Complete transvaginal pelvic ultrasound HISTORY: Left ovarian. COMPARISON: CT abdomen and pelvis June 09, 2020. FINDINGS: Uterus surgically absent. There are numerous pelvic bowel loops with due to shadowing. Small volume of free fluid surrounding bowel loops within the pelvis noted. Left ovary measures 2.9 x 2.4 x 2.5 cm. There is intact ovarian blood flow without evidence of torsion. There are small left ovarian follicles. There is a partially exophytic left ovarian 1.7 cm simple cyst with internal versus typical of a cumulus oophorus. There is a left ovarian oval hypoechoic avascular focus measuring 1.4 cm likely a corpus luteum or hemorrhagic cyst. Right ovary measures 2.5 x 1.3 x 1.6 cm. No evidence of right lateral recess. There is intact right ovarian blood flow with normal waveforms. IMPRESSION: 1. No evidence of ovarian torsion with intact bilateral ovarian blood flow documented. 2. There is a small volume of pelvic free fluid. 3. Hysterectomy. 4. Several left ovarian anechoic cystic foci likely follicles, as well as an exophytic 1.7 cm cumulus oophorus, and a 1.4 cm hypoechoic focus likely representing a corpus luteum or acute hemorrhagic cyst. Per ACR guidelines for incidental adnexal lesions of this size in nature follow-up pelvic sonography in 3 months is advised. Electronically signed by: Jayme Tadeo MD (06/10/2020 12:13 AM) [facility]
[2020-06-10] MEDS ORDERED: TAMS0.4C97 PO (00:57)
[2020-06-10] MEDS ORDERED: OXYC-325 PO (00:57)
[2020-06-10] MEDS ORDERED: oxyCODONE/APAP 5/325 1 TAB TABLET PO ONE (01:00)
[2020-06-10 01:16] VITALS: BP 101/65
== END 2020-06-10 01:20 | disposition home or self-care (01) ==
LOC: ER 21:07
DX: R10.9 Unspecified abdominal pain (principal); R31.9 Hematuria, unspecified; R30.0 Dysuria; R39.15 Urgency of urination; R11.2 Nausea with vomiting, unspecified; Z90.49 Acquired absence of other specified parts of digestive tract; Z88.1 Allergy status to other antibiotic agents
CPT/HCPCS: 36415; 74176; 76830; 80053; 81001; 81025; 85025; 96374; 96375; 99285; J1170; J2270; J2405

== ENCOUNTER 2020-07-16 22:27 | Emergency (ER) | payer OTHER ==
[~2020-07-16] VITALS: Ht 172.7 cm; Wt 70.4 kg
[~2020-07-16 22:27] MED LIST changes: +OXYC-325 PO
--- NOTE | 2020-07-16 23:15 | PHYS DOC ---
Past History Past Medical History: Kidney Stones Additional Past Medical Histor: double uterers on left, ESPOHAGITIS, ULCERS Past Surgical History: Cholecystectomy, Hysterectomy, Other Additional Past Surgical Histo: lap band, KIDNEY STONES Smoking: Non-smoker Alcohol Use: Rarely Drug Use: None General Adult EDM: Chief Complaint: FLANK PAIN HPI: HPI: The history was obtained from the patient. Patient is a 39-year-old female with PMH multiple kidney stones, esophagitis who presents with a chief complaint of left flank pain. Patient states pain began gradually. States pain is sharp in nature. She states it is difficult to find a position of comfort. She notes multiple urologic procedures in the past including stents. She does note a mild urge to void but denies dysuria or hematuria. Denies syncope. Does note nausea without vomiting. Has tried 800 mg ibuprofen at home with no relief. Denies chest pain or shortness of breath. States pain seems to radiate to her left lower quadrant and groin. No vaginal bleeding or discharge. No other complaints. Review of Systems: Review of Systems: Constitutional: Denies fever or chills Eyes: Denies change in visual acuity HENT: Denies nasal congestion or sore throat Respiratory: Denies cough or shortness of breath Cardiovascular: Denies chest pain or edema GI: Positive for nausea : Denies dysuria Musculoskeletal: Positive for flank pain Integument: Denies rash Neurologic: Denies headache, focal weakness or sensory changes Endocrine: Denies polyuria or polydipsia Lymphatic: Denies swollen glands Psychiatric: Denies depression or anxiety Heart Score: Risk Factors: Risk Factors: DM, Current or recent (<one month) smoker, HTN, HLP, family history of CAD, obesity. Risk Scores: Score 0 - 3: 2.5% MACE over next 6 weeks - Discharge Home Score 4 - 6: 20.3% MACE over next 6 weeks - Admit for Clinical Observation Score 7 - 10: 72.7% MACE over next 6 weeks - Early Invasive Strategies Allergies: Allergies: Allergies Coded Allergies Type Severity Reaction Last Updated Verified amoxicillin Allergy Unknown 10/09/19 Yes calamine Allergy Unknown 10/09/19 Yes Physical Exam: PE: Constitutional: Well developed, well nourished, no acute distress, non-toxic appearance. [] HENT: Normocephalic, atraumatic, bilateral external ears normal, oropharynx moist, no oral exudates, nose normal. [] Eyes: PERRLA, EOMI, conjunctiva normal, no discharge. [] Neck: Normal range of motion, no tenderness, supple, no stridor. [] Cardiovascular:Heart rate regular rhythm, no murmur [] Lungs & Thorax: Bilateral breath sounds clear to auscultation [] Abdomen: soft, no tenderness, no masses, no pulsatile masses. [] Skin: Warm, dry, no erythema, no rash. [] Back: Moderate left CVA tenderness Extremities: No tenderness, no cyanosis, no clubbing, ROM intact, no edema. [] Neurologic: Alert and oriented X 3, normal motor function, normal sensory function, no focal deficits noted. [] Psychologic: Affect normal, judgement normal, mood normal. [] Current Patient Data: Labs: Laboratory Tests Test 07/16/20 23:15 07/16/20 23:25 07/16/20 23:40 Urine Collection Type Unknown Urine Color Yellow Urine Clarity Clear Urine pH 5.5 Urine Specific [place] 1.025 Urine Protein Neg Urine Glucose (UA) Neg mg/dL Urine Ketones (Stick) Trace mg/dL Urine Blood Mod Urine Nitrite Neg Urine Bilirubin Neg Urine Urobilinogen Dipstick 0.2 mg/dL Urine Leukocyte Esterase Neg Urine RBC 11-20 /HPF Urine WBC 1-4 /HPF Urine Squamous Epithelial Cells Few /LPF Urine Bacteria 0 /HPF Urine Yeast Present /HPF White Blood Count 6.6 x10^3/uL Red Blood Count 4.13 x10^6/uL Hemoglobin 13.3 g/dL Hematocrit 39.7 % Mean Corpuscular Volume 96 fL Mean Corpuscular Hemoglobin 32 pg Mean Corpuscular Hemoglobin Concent 34 g/dL Red Cell Distribution Width 14.6 % Platelet Count 203 x10^3/uL Neutrophils (%) (Auto) 66 % Lymphocytes (%) (Auto) 24 % Monocytes (%) (Auto) 7 % Eosinophils (%) (Auto) 2 % Basophils (%) (Auto) 1 % Neutrophils # (Auto) 4.3 x10^3uL Lymphocytes # (Auto) 1.6 x10^3/uL Monocytes # (Auto) 0.5 x10^3/uL Eosinophils # (Auto) 0.1 x10^3/uL Basophils # (Auto) 0.1 x10^3/uL Sodium Level 139 mmol/L Potassium Level 3.1 mmol/L Chloride Level 103 mmol/L Carbon Dioxide Level 25 mmol/L Anion Gap 11 Blood Urea Nitrogen 15 mg/dL Creatinine 0.8 mg/dL Estimated GFR (Cockcroft-Gault) 80.3 BUN/Creatinine Ratio 19 Glucose Level 89 mg/dL Calcium Level 9.1 mg/dL Total Bilirubin 1.7 mg/dL Aspartate Amino Transf (AST/SGOT) 15 U/L Alanine Aminotransferase (ALT/SGPT) 25 U/L Alkaline Phosphatase 87 U/L Total Protein 7.5 g/dL Albumin 4.2 g/dL Albumin/Globulin Ratio 1.3 Lipase 126 U/L Bedside Urine HCG, Qualitative hcg negative Current Medications Medications (Trade) Dose Ordered Sig/Shila Route PRN Reason Start Time Stop Time Status Last Admin Dose Admin Hydromorphone HCl (Dilaudid) 1 mg 1X ONCE IV 07/16/20 23:30 07/16/20 23:31 DC 07/16/20 23:30 Metoclopramide HCl (Reglan Vial) 10 mg 1X ONCE IVP 07/16/20 23:30 07/16/20 23:31 DC 07/16/20 23:30 Vital Signs: Vital Signs Date Time Temp Pulse Resp B/P (MAP) Pulse Ox O2 Delivery O2 Flow Rate FiO2 07/16/20 23:36 98.8 80 20 117/66 (83) 96 Room Air 07/16/20 23:30 20 96 Room Air EKG: EKG: [] Radiology/Procedures: Radiology/Procedures: [][place] [id number] IMAGING REPORT Signed PATIENT: NILTON CASEY ACCOUNT: [id number] : 1980 LOCATION: ER AGE: 39 SEX: F EXAM STATUS: REG ER ORD. PHYSICIAN: ELIEZER VAZQUEZ DO REASON: L flank pain. h/o stones, lap band, cholecystectomy, partial hyst PROCEDURE: CT ABDOMEN PELVIS WO CONTRAST Examination: CT of the abdomen pelvis without contrast HISTORY: History of left flank pain COMPARISON: 06/09/2020 TECHNIQUE: Axial CT images of the abdomen pelvis were performed with IV contrast. Coronal and sagittal reformats are performed Exposure: One or more of the following individualized dose reduction techniques were utilized for this examination: 1. Automated exposure control 2. Adjustment of the mA and/or kV according to patient size 3. Use of iterative reconstruction technique FINDINGS: The evaluation of the solid organs is limited due to lack of IV contrast. The evaluation of bowel is limited due to lack of oral contrast. The bibasilar lungs are clear. No evidence of free air identified in the abdomen. The visualized noncontrasted liver, spleen, adrenals grossly appears unremarkable. Cholecystectomy changes. The stomach is mildly distended. A lap band identified in stomach. The visualized pancreas grossly appears unremarkable . The small bowel is nondilated. Feces and gas noted in the colon. The appendix is normal. Urinary bladder is mildly distended. Punctate 1 mm intrarenal collecting system calculi identified in the right kidney. No evidence of hydronephrosis. No evidence of lytic bony destructive lesion. IMPRESSION: 1. Right nephrolithiasis. No evidence of hydronephrosis. Electronically signed by: Andrzej Guerra MD (07/17/2020 12:45 AM) [id number] DICTATED AND SIGNED BY: ANDRZEJ GUERRA MD DATE: 07/17/20 0045 CC: PCP,UNKNOWN; ELIEZER VAZQUEZ DO ~ Course & Med Decision Making: Course & Med Decision Making Pertinent Labs and Imaging studies reviewed. (See chart for details) [] Patient is an uncomfortable appearing 39-year-old female presents with chief complaint of acute onset left flank pain. Initial vital signs unremarkable. Urinalysis does show hematuria without evidence of infection. However she will be given a one-time dose of fluconazole given yeast was identified in her urinalysis. Remainder of labs unremarkable including normal kidney function and no leukocytosis. CT imaging does not reveal any ureterolithiasis. Repeat examination patient symptoms have been well controlled with pain and nausea medicine. At this time the exact cause of her symptoms are unclear. I did discuss the possibility of obtaining an ultrasound to evaluate for her ovaries. She does note that she has a history of hysterectomy but her ovaries remain. Overall very low suspicion for ovarian torsion. Patient would like to defer this ultrasound imaging at this time and follow-up with close outpatient management. She was instructed to return in 8 to 12 hours should her symptoms not return or worsen. She has tolerated p.o. Instructed to follow-up with her primary care physician in the next 2 to 3 days as well as her urologist. Stable for discharge home. Dragon Disclaimer: Genia Disclaimer: This electronic medical record was generated, in whole or in part, using a voice recognition dictation system. Departure Departure: Impression: Primary Impression: Left flank pain Disposition: 01 HOME/RESIDENCE PRIOR TO ADM Condition: STABLE Referrals: PCP,UNKNOWN (PCP) Additional Instructions: Discharge Abdominal Pain Re-Check Precautions: I'm unsure of the specific cause of your abdominal pain. However, at this point I feel that you are low risk for a life threatening emergency and that discharge from the Emergency Department is safe. There is a very small possibility that you are just too early in your clinical course for our physical exam/labs/imaging to ascertain whether or not you have an emergent condition that could potentially cause permanent disability or be life threatening. As such, it is very important that you follow up with your primary doctor or return to the Emergency Department in 12-24 hours for re-assessment and further evaluation if clinically indicated. If you develop new or worsening symptoms then you should return to the Emergency Department immediately. Home Care Instructions: Abdominal Pain Many things may cause abdominal pain. Your ER visit might not show the exact reason you are having pain. In some cases, additional time is needed to determine if the cause is serious. Therefore you may be told to go home and watch for any changes or worsening in your condition. Before that, we may not know if you need more testing, or if hospitalization or surgery is necessary. If its not something serious, the pain may go away without treatment or get better with simple things like avoiding certain foods or medications. In the ER, your doctor asks you questions, examines you and in some cases, may order tests. These help doctors decide if the pain is from something serious. Tests are not always done and may not provide a definite answer. There can still be a problem, even with normal test results. Abdominal pain may be caused by something serious (like appendicitis), which is not obvious right away. Because of this, another checkup is needed to make sure you are OK. It is VERY IMPORTANT to follow up for a repeat exam, especially if you have any symptoms that are not going away or are getting worse. We recommend that you RETURN TO THE EMERGENCY ROOM IN 8-12 HOURS to be rechecked. If you cannot, you may follow up with your primary care doctor or clinic. It is important that you follow all of the instructions below. RETURN TO THE EMERGENCY ROOM IMMEDIATELY IF: The pain does not go away or gets worse. You have a fever. You keep throwing up and cannot keep anything down. You pass bloody or black stools. You develop new symptoms. HOME CARE INSTRUCTIONS Come back to the ER (or see your doctor) in 8-12 hours. DO NOT take laxatives unless directed by your doctor. Avoid the use of alcohol Take pain medicine only as directed by your doctor. Only take [id number] or prescription medicine as directed by your doctor. Try a clear liquid diet (broth, tea, jello, water) for the next 12-24 hours. Slowly move to a bland diet as tolerated. Do not eat greasy, fatty or spicy foods. Once you start getting better, go back to a normal, healthy diet, slowly over a few days. DISCHARGE PT INSTRUCTIONS: YOU HAVE BEEN EVALUATED FOR ABDOMINAL PAIN. HOWEVER, WE ARE UNABLE TO PROVIDE A DEFINITE CAUSE OF YOUR SYMPTOMS. EVEN THOUGH YOUR TESTS MAY HAVE BEEN NORMAL, YOU STILL COULD HAVE A SERIOUS CAUSE FOR YOUR ABDOMINAL PAIN, INCLUDING APPENDICITIS. THE BEST TEST TO DETERMINE IF YOU HAVE A SERIOUS CAUSE IS RE-EXAMINATION OVER TIME. WE USED TO ADMIT PATIENTS TO THE HOSPITAL FOR THIS, BUT CAN NOW ALLOW YOU TO GO HOME, & RETURN TO OUR ER THE NEXT DAY FOR RE- EXAMINATION. THUS, WE WOULD LIKE YOU TO RETURN TO OUR ER TOMORROW FOR YOUR RE- EVALUATION. (IF YOUR SYMPTOMS HAVE GONE AWAY, THEN YOU DO NOT NEED TO RETURN.) IF YOUR SYMPTOMS GET WORSE BETWEEN NOW & THEN, YOU SHOULD RETURN IMMEDIATELY & NOT WAIT UNTIL TOMORROW. SYMPTOMS TO LOOK FOR WORSENING PAIN, HIGH FEVER, PERSISTENT VOMITING , AND/OR OVERALL WORSENING OF YOUR CONDITION. Scripts Ondansetron Hcl (ZOFRAN) 8 Mg Tablet 4 MG PO TID PRN PRN for NAUSEA, #9 TAB Prov: ELIEZER VAZQUEZ DO 07/17/20 Justification of Admission: Justification of Admission: Justification of Admission Dx: N/A ELIEZER VAZQUEZ DO Jul 16, 2020 23:15
[2020-07-16] MEDS ORDERED: METOCLOPRAMIDE HCL 10 MG/2 ML VIAL. IVP ONE (23:30)
[2020-07-16] MEDS ORDERED: HYDROmorphone PF 1 MG/ML DISP.SYRIN IV ONE (23:30)
[2020-07-16 23:36] VITALS: BP 117/66
[2020-07-17 00:06] LABS: BASO # 0.1 x10^3/uL (0.0-0.2); BASO % 1 % (0-3); EOS # 0.1 x10^3/uL (0.0-0.7); EOS % 2 % (0-3); HEMATOCRIT 39.7 % (36.0-47.0); HEMOGLOBIN 13.3 g/dL (12.0-15.5); LYMPH # 1.6 x10^3/uL (1.0-4.8); LYMPH % 24 % (24-48); MEAN CORPUSCULAR HEMOGLOBIN 32 pg (25-35); MEAN CORPUSCULAR HGB CONC 34 g/dL (31-37); MEAN CORPUSCULAR VOLUME 96 fL (79-100); MONO # 0.5 x10^3/uL (0.0-1.1); MONO % 7 % (0-9); NEUT # 4.3 x10^3uL (1.8-7.7); NEUT % 66 % (31-73); PLATELET COUNT 203 x10^3/uL (140-400); RED BLOOD COUNT 4.13 x10^6/uL (3.50-5.40); RED CELL DISTRIBUTION WIDTH 14.6 % (11.5-14.5); WHITE BLOOD COUNT 6.6 x10^3/uL (4.0-11.0)
[2020-07-17 00:12] LABS: CALCIUM 9.1 mg/dL (8.5-10.1); CREATININE 0.8 mg/dL (0.6-1.0); GFR 80.3; POTASSIUM 3.1 mmol/L (3.5-5.1)
[2020-07-17 00:19] LABS: ALBUMIN 4.2 g/dL (3.4-5.0); ALBUMIN/GLOBULIN RATIO 1.3 (1.0-1.7); TOTAL BILIRUBIN 1.7 mg/dL (0.2-1.0); TOTAL PROTEIN 7.5 g/dL (6.4-8.2)
[2020-07-17 00:29] LABS: BILIRUBIN,URINE NEG (NEG); CLARITY,URINE CLEAR; COLOR,URINE YELLOW; GLUCOSE,URINE NEG (NEG); NITRITE,URINE NEG (NEG); UROBILINOGEN,URINE 0.2 mg/dL (0.2 mg/dL)
[2020-07-17 00:30] LABS: BACTERIA,URINE 0 /HPF (0-FEW); SQUAMOUS EPITHELIAL CELL,UR FEW /LPF; YEAST,URINE PRESENT /HPF
--- NOTE | 2020-07-17 00:48 | RAD ---
Examination: CT of the abdomen pelvis without contrast HISTORY: History of left flank pain COMPARISON: 06/09/2020 TECHNIQUE: Axial CT images of the abdomen pelvis were performed with IV contrast. Coronal and sagittal reformats are performed Exposure: One or more of the following individualized dose reduction techniques were utilized for this examination: 1. Automated exposure control 2. Adjustment of the mA and/or kV according to patient size 3. Use of iterative reconstruction technique FINDINGS: The evaluation of the solid organs is limited due to lack of IV contrast. The evaluation of bowel is limited due to lack of oral contrast. The bibasilar lungs are clear. No evidence of free air identified in the abdomen. The visualized noncontrasted liver, spleen, adrenals grossly appears unremarkable. Cholecystectomy changes. The stomach is mildly distended. A lap band identified in stomach. The visualized pancreas grossly appears unremarkable . The small bowel is nondilated. Feces and gas noted in the colon. The appendix is normal. Urinary bladder is mildly distended. Punctate 1 mm intrarenal collecting system calculi identified in the right kidney. No evidence of hydronephrosis. No evidence of lytic bony destructive lesion. IMPRESSION: 1. Right nephrolithiasis. No evidence of hydronephrosis. Electronically signed by: Andrzej Guerra MD (07/17/2020 12:45 AM) [id number]
[2020-07-17] MEDS ORDERED: ONDA8TAB9 PO (01:05)
[2020-07-17] MEDS ORDERED: FLUCONAZOLE 100 MG TABLET. PO ONE (01:15)
== END 2020-07-17 01:10 | disposition home or self-care (01) ==
LOC: ER 22:27
DX: R10.9 Unspecified abdominal pain (principal); Z87.442 Personal history of urinary calculi; Z90.49 Acquired absence of other specified parts of digestive tract; Z90.710 Acquired absence of both cervix and uterus; Z88.1 Allergy status to other antibiotic agents; Z88.8 Allergy status to other drugs, medicaments and biological substances
CPT/HCPCS: 36415; 74176; 80053; 81001; 81025; 83690; 85025; 96374; 96375; 99284; J1170; J2765

== ENCOUNTER 2020-07-18 20:50 | Emergency (ER) | payer OTHER ==
[~2020-07-18] VITALS: Ht 172.7 cm; Wt 70.4 kg
--- NOTE | 2020-07-18 21:12 | PHYS DOC ---
Past History Past Medical History: GERD, Kidney Stones, Other Additional Past Medical Histor: esophagitis with bleeding ulcers Past Surgical History: Cholecystectomy, Hysterectomy, Other Additional Past Surgical Histo: lap band Smoking: Non-smoker Alcohol Use: Rarely Drug Use: None General Adult EDM: Chief Complaint: ABDOMINAL PAIN HPI: HPI: Patient is a 39-year-old female who presents to the emergency room with intermittent, sharp left lower quadrant abdominal pain. Patient states that she was seen here 2 days ago for left flank pain a CT scan at that time showed right nephrolithiasis. Patient states she was sent home with Zoan and her pain has gotten worse since then. Patient states that the pain now wraps around to the front. She rates the pain at 10 out of 10 and states that nothing makes it worse or better. Patient reports to having nausea and vomiting x 1 prior to arrival. Review of Systems: Review of Systems: Constitutional: Denies fever or chills Eyes: Denies redness or eye pain HENT: Denies nasal congestion or sore throat Respiratory: Denies cough or shortness of breath Cardiovascular: Denies chest pain or palpitations GI: Reports abdominal pain, nausea, or vomiting, denies changes in bowel movement : Denies dysuria or hematuria, reports increased urgency, left flank pain Musculoskeletal: Denies back pain or joint pain Integument: Denies rash or skin lesions Neurologic: Denies headache, focal weakness or sensory changes Complete systems were reviewed and found to be within normal limits, except as documented in this note. Allergies: Allergies: Allergies Coded Allergies Type Severity Reaction Last Updated Verified amoxicillin Allergy Unknown 10/09/19 Yes calamine Allergy Unknown 10/09/19 Yes Physical Exam: PE: Constitutional: Well developed, well nourished, tearful, appears uncomfortable, non-toxic appearance HENT: Normocephalic, atraumatic Eyes: PERRL, EOMI, conjunctiva normal, no discharge Neck: Normal range of motion, no tenderness, supple Lungs & Thorax: No respiratory distress, equal chest rise and fall Abdomen: Soft, tenderness to palpation of the left lower quadrant, no distention, no guarding Skin: Warm, dry, no erythema, no rash Back: No tenderness, left CVA tenderness Extremities: No tenderness, ROM intact, no edema Neurologic: Alert and oriented X 3, normal motor function, normal sensory function, no focal deficits noted Psychologic: Affect normal, judgment normal Radiology/Procedures: Radiology/Procedures: PROCEDURE: US PELVIS W/TV Examination: Ultrasound pelvis HISTORY: History of left pelvic pain, history of liver cyst COMPARISON: 06/09/2020. Findings: The uterus is not identified. The right ovary measures 2.9 x 1.7 x 1.2 cm. The left ovary measures 2.6 x 1.8 x 1.9 cm. Left Blood flow identified in the right and left ovaries. Cystic structures identified in the bilateral ovaries probably cysts. There is a 1.2 cm cystic structure identified in the left ovary containing echogenicity could be a follicle or small hemorrhagic cyst. Minimal free fluid identified in the pelvis. IMPRESSION: 1. Bilateral ovarian cyst. There is a 1.2 cm hyperechoic structure identified in the left ovary containing some echogenicity within with follicle or hemorrhagic cyst similar to prior exam. Electronically signed by: Andrzej Guerra MD (07/19/2020 12:44 AM) [id number] DICTATED AND SIGNED BY: ANDRZEJ GUERRA MD Course & Med Decision Making: Course & Med Decision Making Pertinent Labs and Imaging studies reviewed. (See chart for details) Patient is a 39-year-old female who presents to the emergency department with left lower quadrant abdominal pain. Patient was seen 2 days ago here in the ED for left-sided flank pain. A full work up was done and a CT scan at that time showed right-sided nephrolithiasis with no stones present on the left. She was also seen here a month ago for similar symptoms and an ultrasound at that time showed several cysts on her left ovary. Patient states that she has a outpatient MRI scheduled for further work up. Symptomatic management was provided with IV fluids and pain medication. Labs showed hypokalemia at 3.0 which was replaced. US showed bilateral ovarian cysts, as seen on the prior exam. I suspect her pain is likely due to the presence of the ovarian cysts. Patient has been advised to follow-up with her [employer]. Genia Disclaimer: Genia Disclaimer: This electronic medical record was generated, in whole or in part, using a voice recognition dictation system. Departure Departure: Impression: Primary Impression: Chronic abdominal pain Additional Impression: Ovarian cyst Qualified Codes: N83.202 - Unspecified ovarian cyst, left side Disposition: 01 HOME/RESIDENCE PRIOR TO ADM Condition: STABLE Referrals: PCP,UNKNOWN (PCP) Patient Instructions: Abdominal Pain (Nonspecific), Chronic Pain Management- Brief, Ovarian Cyst, [id number] Additional Instructions: Please follow closely with your WOOL HAND[employer]ER and/or human resources benefits specialist. Pain Management: Dr. Carlo Morel ([facility]) Address: [address], [place] [address] Scripts Oxycodone HCl/Acetaminophen (Percocet 5-325 mg Tablet) 1 Each Tablet 1 TAB PO Q6HRS PRN for PAIN MDD 4 Tablet(s), #10 TAB 0 Refills Prov: PARAS SCALES DO 07/19/20 Promethazine HCl (Promethazine HCl) 50 Mg Supp.rect 25 MG RC BID PRN for NAUSEA, #14 SUPP.RECT Prov: PARAS SCALES DO 07/19/20 Justification of Admission: Justification of Admission: Justification of Admission Dx: N/A PARAS SCALES DO Jul 18, 2020 21:12
[2020-07-18] MEDS ORDERED: IV NORMAL SALINE 1,000ML 1,000 ML IV ONE (21:30)
[2020-07-18] MEDS ORDERED: FAMOTIDINE 20 MG/2 ML VIAL IVP ONE (21:45)
[2020-07-18] MEDS ORDERED: ONDANSETRON PF 4 MG/2 ML VIAL. IVP ONE (21:45)
[2020-07-18] MEDS ORDERED: KETOROLAC 15 MG/ML VIAL. IVP ONE (21:45)
[2020-07-18 22:04] LABS: BASO % 0 % (0-3); EOS # 0.1 x10^3/uL (0.0-0.7); EOS % 3 % (0-3); HEMOGLOBIN 13.5 g/dL (12.0-15.5); LYMPH # 1.5 x10^3/uL (1.0-4.8); LYMPH % 28 % (24-48); MEAN CORPUSCULAR HEMOGLOBIN 32 pg (25-35); MEAN CORPUSCULAR HGB CONC 34 g/dL (31-37); MEAN CORPUSCULAR VOLUME 96 fL (79-100); MONO # 0.5 x10^3/uL (0.0-1.1); MONO % 9 % (0-9); NEUT # 3.1 x10^3uL (1.8-7.7); NEUT % 60 % (31-73); PLATELET COUNT 188 x10^3/uL (140-400); RED BLOOD COUNT 4.17 x10^6/uL (3.50-5.40); RED CELL DISTRIBUTION WIDTH 14.6 % (11.5-14.5); WHITE BLOOD COUNT 5.2 x10^3/uL (4.0-11.0)
[2020-07-18 22:08] LABS: CALCIUM 8.5 mg/dL (8.5-10.1); CREATININE 0.7 mg/dL (0.6-1.0); GFR 93.6
[2020-07-18 22:14] LABS: ALBUMIN 3.8 g/dL (3.4-5.0); ALBUMIN/GLOBULIN RATIO 1.2 (1.0-1.7); TOTAL BILIRUBIN 1.5 mg/dL (0.2-1.0)
[2020-07-18] MEDS ORDERED: POTASSIUM CHLORIDE 20 MEQ TABLET.ER. PO ONE (23:00)
[2020-07-18 23:07] LABS: BARBITURATES NEG (NEG); BENZODIAZEPINES NEG (NEG); CANNABINOIDS NEG (NEG); COCAINE NEG (NEG); METHADONE NEG (NEG); OPIATES NEG (NEG); PHENCYCLIDINE NEG (NEG)
[2020-07-18 23:13] LABS: BILIRUBIN,URINE NEG (NEG); CLARITY,URINE CLEAR; COLOR,URINE YELLOW; GLUCOSE,URINE NEG (NEG); NITRITE,URINE NEG (NEG)
[2020-07-18 23:14] LABS: BACTERIA,URINE 0 /HPF (0-FEW); SQUAMOUS EPITHELIAL CELL,UR FEW /LPF; WBC,URINE OCC /HPF (0-4)
[2020-07-18 23:21] LABS: AMPHETAMINE/METHAMPHETAMINE NEG (NEG)
[2020-07-18] MEDS ORDERED: METOCLOPRAMIDE HCL 10 MG/2 ML VIAL. IVP ONE (23:30)
[2020-07-18] MEDS ORDERED: diphenhydrAMINE 50 MG/ML VIAL IVP ONE (23:30)
--- NOTE | 2020-07-19 00:47 | RAD ---
Examination: Ultrasound pelvis HISTORY: History of left pelvic pain, history of liver cyst COMPARISON: 06/09/2020. Findings: The uterus is not identified. The right ovary measures 2.9 x 1.7 x 1.2 cm. The left ovary measures 2.6 x 1.8 x 1.9 cm. Left Blood flow identified in the right and left ovaries. Cystic structures identified in the bilateral ovaries probably cysts. There is a 1.2 cm cystic structure identified in the left ovary containing echogenicity could be a follicle or small hemorrhagic cyst. Minimal free fluid identified in the pelvis. IMPRESSION: 1. Bilateral ovarian cyst. There is a 1.2 cm hyperechoic structure identified in the left ovary containing some echogenicity within with follicle or hemorrhagic cyst similar to prior exam. Electronically signed by: Andrzej Guerra MD (07/19/2020 12:44 AM) [id number]
[2020-07-19 01:00] VITALS: BP 133/58
[2020-07-19] MEDS ORDERED: HYDROmorphone PF 1 MG/ML DISP.SYRIN IVP ONE (01:00)
[2020-07-19] MEDS ORDERED: PROM50SU7 RC (01:07)
[2020-07-19] MEDS ORDERED: OXYC-325 PO (01:07)
== END 2020-07-19 01:15 | disposition home or self-care (01) ==
LOC: ER 20:50
DX: N83.202 Unspecified ovarian cyst, left side (principal); G89.29 Other chronic pain; R10.32 Left lower quadrant pain; K21.9 Gastro-esophageal reflux disease without esophagitis; Z87.442 Personal history of urinary calculi; Z90.49 Acquired absence of other specified parts of digestive tract; Z90.710 Acquired absence of both cervix and uterus; Z88.1 Allergy status to other antibiotic agents; Z88.8 Allergy status to other drugs, medicaments and biological substances
CPT/HCPCS: 36415; 76830; 76856; 80053; 80307; 81001; 83690; 83735; 85025; 96361; 96374; 96375; 99284; J1170; J1200; J1885; J2405; J2765; J3010; J3490; J7030; 99285-25

== ENCOUNTER 2020-08-05 16:14 | Emergency (ER) | payer OTHER ==
[~2020-08-05] VITALS: Ht 172.7 cm; Wt 71.2 kg
[~2020-08-05 16:14] MED LIST changes: +PROM50SU7 RC
--- NOTE | 2020-08-05 16:48 | PHYS DOC ---
Past History Past Medical History: GERD, Kidney Stones, Other Additional Past Medical Histor: esophagitis with bleeding ulcers Past Surgical History: Cholecystectomy, Hysterectomy, Other Additional Past Surgical Histo: lap band Smoking: Non-smoker Alcohol Use: Rarely Drug Use: None General Adult EDM: Chief Complaint: PELVIC PAIN HPI: HPI: 39-year-old female past medical history significant for endometriosis with hysterectomy, nephrolithiasis with 3 urologic surgeries, bilateral ovarian cysts, GERD, morbid obesity with lap band surgery, and esophagitis with bleeding ulcers?, Presents the ED with complaints of left lower quadrant pain. Reports she has a referral from August 21. EMR was reviewed and patient was last seen here July 16 and had transvaginal ultrasound and a CT that showed a right 1 mm nephrolithiasis and bilateral ovarian cysts, largest was 1.2 cm in her left ovary, was treated with [place] and Naprosyn. Review of Systems: Review of Systems: Constitutional: Denies fever or chills Eyes: Denies change in visual acuity HENT: Denies nasal congestion or sore throat Respiratory: Denies cough or shortness of breath Cardiovascular: Denies chest pain or edema GI: Denies abdominal pain, nausea, vomiting, bloody stools or diarrhea : Denies dysuria Musculoskeletal: Denies back pain or joint pain Integument: Denies rash Neurologic: Denies headache, focal weakness or sensory changes Endocrine: Denies polyuria or polydipsia Lymphatic: Denies swollen glands Psychiatric: Denies depression or anxiety Heart Score: Risk Factors: Risk Factors: DM, Current or recent (<one month) smoker, HTN, HLP, family history of CAD, obesity. Risk Scores: Score 0 - 3: 2.5% MACE over next 6 weeks - Discharge Home Score 4 - 6: 20.3% MACE over next 6 weeks - Admit for Clinical Observation Score 7 - 10: 72.7% MACE over next 6 weeks - Early Invasive Strategies Allergies: Allergies: Allergies Coded Allergies Type Severity Reaction Last Updated Verified amoxicillin Allergy Intermediate 08/05/20 Yes calamine Allergy Intermediate 08/05/20 Yes Physical Exam: PE: Constitutional: Well developed, well nourished, no acute distress, non-toxic appearance. [] HENT: Normocephalic, atraumatic, bilateral external ears normal, oropharynx moist, no oral exudates, nose normal. [] Eyes: PERRLA, EOMI, conjunctiva normal, no discharge. [] Neck: Normal range of motion, no tenderness, supple, no stridor. [] Cardiovascular:Heart rate regular rhythm, no murmur [] Lungs & Thorax: Bilateral breath sounds clear to auscultation [] Abdomen: Bowel sounds normal, soft, no tenderness, no masses, no pulsatile masses. [] Skin: Warm, dry, no erythema, no rash. [] Back: No tenderness, no CVA tenderness. [] Extremities: No tenderness, no cyanosis, no clubbing, ROM intact, no edema. [] Neurologic: Alert and oriented X 3, normal motor function, normal sensory function, no focal deficits noted. [] Psychologic: Affect normal, judgement normal, mood normal. [] EKG: EKG: [] Radiology/Procedures: Radiology/Procedures: [] Course & Med Decision Making: Course & Med Decision Making Pertinent Labs and Imaging studies reviewed. (See chart for details) IMAGING REPORT Signed PATIENT: NILTON CASEY ACCOUNT: [id number] : 1980 LOCATION: ER AGE: 39 SEX: F EXAM STATUS: REG ER ORD. PHYSICIAN: KATELYN ORTIZ DO REASON: SEVERE LLQ PAIN, N/V PROCEDURE: CT ANGIOGRAPHY ABD AND PELVIS CT ANGIOGRAPHY ABD AND PELVIS dated 08/05/2020 5:06 PM Indication:Pain.Reason: SEVERE LLQ PAIN, N/V / Spl. Instructions: ER DR LOOKING FOR SOMETHING MESENTERIC GOING ON / History: . Comparison: 07/17/2020 Technique: Contiguous axial imaging of the abdomen pelvis performed following intravenous and demonstration of 90 cc Omnipaque 350. Study was performed as a dedicated CTA with thin cut coronal and sagittal reconstruction. One or more of the following individualized dose reduction techniques were utilized for this examination: 1. Automated exposure control 2. Adjustment of the mA and/or kV according to patient size 3. Use of iterative reconstruction technique Findings: Limited images of lung bases are clear. Heart size within normal limits. No pleural or pericardial effusion There is a lap band device in place. Mild circumferential wall thickening of the distal thoracic esophagus with small amount of fluid in the lumen. GI tract is otherwise normal in caliber and contour. No focal bowel wall thickening. There are a few scattered diverticula within the colon. No paracolonic inflammatory changes. No free fluid or lymphadenopathy. The appendix is normal in caliber. Liver, spleen, pancreas, adrenal glands and kidneys are unremarkable. No hydronephrosis. There are a few tiny calcific stones along the calyceal margins of the right kidney, similar to prior exam. Abdominal aorta normal in caliber. Celiac artery, SMA and bilateral renal arteries are patent. The SYDNI is patent. Images of pelvis show nondistended urinary bladder. The uterus is surgically absent. No free fluid or pelvic lymphadenopathy. Bone windows show no acute findings. IMPRESSION: 1. No acute abnormality of abdomen or pelvis. No evidence of aneurysm or hemodynamically significant stenosis. 2. Right-sided nephrolithiasis, nonobstructive. 3. There is mild wall thickening of the distal thoracic esophagus in patient status post lap band placement. This could be related to acute or chronic esophagitis. Electronically signed by: Jm Beauchamp MD (08/05/2020 6:05 PM) [facility] DICTATED AND SIGNED BY: JM BEAUCHAMP MD DATE: 08/05/201804 CC: NNEKA NOEL; KATELYN ORTIZ DO ~ Patient reports she has plenty of pain medications at home but is requesting answers for her chronic pain. Encouraged urgent outpatient follow-up with PMD and []. Life-threatening processes were considered but are low suspicion at this time, given history and physical exam. Pt was educated on all prescription medications and adverse effects. All patient's questions were answered and pt was stable at time of discharge. Life/limb-threatening differential includes but is not limited to, aortic dissection, aortic aneurysm, acute coronary syndrome, surgical abdomen (appendicitis, cholecystitis, ischemic bowel, strangulated hernia, etc), bowel obstruction or volvulus, bladder outlet obstruction, gastrointestinal bleeding, inflammatory bowel disease, peptic ulcer disease, sepsis, diverticular disease, ureterolithiasis, nephrolithiasis, ovarian or testicular torsion, ectopic , vaginal hemorrhage, or genitourinary infection. I spoken with the patient and her caregivers. I explained the patient's condition, diagnoses and treatment plan based on the information available to me at this time. I have answered the patient and her caregiver's questions and addressed any concerns. The patient and her caregivers have a good unders tanding of patient's diagnosis, condition and treatment plan as can be expected at this point. Vital signs have been stable. Patient's condition is stable and appropriate for discharge from the emergency department. Patient will pursue further outpatient evaluation with primary care physician or other designated or consulting physician as outlined in the discharge instructions. The patient and/or caregivers are agreeable to this plan of care and follow-up instructions have been explained in detail. The patient and/or caregivers have received these instructions in written form and have expressed an understanding of the discharge instructions. The patient and/or caregivers are aware that any significant change of condition or worsening of symptoms should prompt immediate return to this or the closest emergency department or call to 911. Genia Disclaimer: [employer] Disclaimer: This electronic medical record was generated, in whole or in part, using a voice recognition dictation system. Departure Departure: Impression: Primary Impression: Abdominal pain Additional Impression: Hematuria of unknown etiology Disposition: 01 HOME/RESIDENCE PRIOR TO ADM Condition: STABLE Referrals: NNEKA NOEL (PCP) Differential includes autoimmune disorder, vasculitis, endometriosis with spread to multiple organs, etc Patient Instructions: Abdominal Pain, Hematuria, Adult Additional Instructions: FOLLOW UP WITH GASTROENTEROLOGY: [facility] [address], [address], [place] [address] FOLLOW UP WITH SURGERY: [facility] [address] [place] [id number] [address] [place] [address] FOLLOW UP WITH OBGYN: [facility] [address] [place] [address] EMERGENCY DEPARTMENT GENERAL DISCHARGE INSTRUCTIONS Thank you for coming to [facility] (ED) today and trusting us with you care. We trust that you had a positivie experience in our Emergency Department. If you wish to speak to the department management, you may call the director at [phone]. YOUR FOLLOW UP INSTRUCTIONS ARE FOLLOWS: 1. Do you have a private Doctor? If you do not have a private doctor, please ask for a resource list of physicians or clinics that may be able to assist you with follow up care. 2. The Emergency Physician has interpreted your x-rays. The X-Ray specialist will also review them. If there is a change in the findings, you will be notified in 48 hours when at all possible. 3. A lab test or culture has been done, your results will be reviewed and you will be notified if you need a change in treatment. ADDITIONAL INSTRUCTIONS AND INFORMATION: 1. Your care today has been supervised by a physician who is specially trained in emergency care. Many problems require more than one evaluation for a complete diagnosis and treatment. We recommend that you schedule your follow up appointment as recommended to ensure complete treatment of you illness or injury. If you are unable to obtain follow up care and continue to have a problem, or if your condition worsens, we recommend that you return to the ED. 2. We are not able to safely determine your condition over the phone nor are we able to give sound medical advice over the phone. For these safety reasons, if you call for medical advice we will ask you to come to the ED for further evaluation. 3. If you have any questions regarding these discharge instructions please call the ED at [phone]. SAFETY INFORMATION: In the interest of safety, wellness, and injury prevention; we encourage you to wear your sealbelt, if you smoke; quite smoking, and we encourage family to use a protective helmet for bicycling and other sporting events that present an increased risk for head injury. IF YOUR SYMPTOMS WORSEN OR NEW SYMPTOMS DEVELOP, OR YOU HAVE CONCERNS ABOUT YOUR CONDITION; OR IF YOUR CONDITION WORSENS WHILE YOU ARE WAITING FOR YOUR FOLLOW UP APPOINTMENT; EITHER CONTACT YOUR PRIMARY CARE DOCTOR, THE PHYSICIAN WHOSE NAME AND NUMBER YOU WERE GIVEN, OR RETURN TO THE ED IMMEDIATELY. [facility] DO Aug 05, 2020 16:48
[2020-08-05] MEDS ORDERED: ACETAMINOPHEN 325 MG TABLET PO ONE (17:00)
[2020-08-05] MEDS ORDERED: MORPHINE SULFATE 10 MG/ML SYRINGE. IV ONE (17:15)
[2020-08-05] MEDS ORDERED: ONDANSETRON PF 4 MG/2 ML VIAL. IVP ONE (17:15)
[2020-08-05] MEDS ORDERED: IV NORMAL SALINE 1,000ML 1,000 ML IV ONE (17:15)
[2020-08-05] MEDS ORDERED: IOHEXOL 350 MG/ML 100 ML VIAL. IV ONE (17:30)
[2020-08-05 18:07] LABS: CALCIUM 8.9 mg/dL (8.5-10.1); CREATININE 0.6 mg/dL (0.6-1.0); GFR 111.9; POTASSIUM 3.2 mmol/L (3.5-5.1)
--- NOTE | 2020-08-05 18:08 | RAD ---
CT ANGIOGRAPHY ABD AND PELVIS dated 08/05/2020 5:06 PM Indication:Pain.Reason: SEVERE LLQ PAIN, N/V / Spl. Instructions: ER DR LOOKING FOR SOMETHING MESENTERIC GOING ON / History: . Comparison: 07/17/2020 Technique: Contiguous axial imaging of the abdomen pelvis performed following intravenous and demonstration of 90 cc Omnipaque 350. Study was performed as a dedicated CTA with thin cut coronal and sagittal reconstruction. One or more of the following individualized dose reduction techniques were utilized for this examination: 1. Automated exposure control 2. Adjustment of the mA and/or kV according to patient size 3. Use of iterative reconstruction technique Findings: Limited images of lung bases are clear. Heart size within normal limits. No pleural or pericardial effusion There is a lap band device in place. Mild circumferential wall thickening of the distal thoracic esophagus with small amount of fluid in the lumen. GI tract is otherwise normal in caliber and contour. No focal bowel wall thickening. There are a few scattered diverticula within the colon. No paracolonic inflammatory changes. No free fluid or lymphadenopathy. The appendix is normal in caliber. Liver, spleen, pancreas, adrenal glands and kidneys are unremarkable. No hydronephrosis. There are a few tiny calcific stones along the calyceal margins of the right kidney, similar to prior exam. Abdominal aorta normal in caliber. Celiac artery, SMA and bilateral renal arteries are patent. The SYDNI is patent. Images of pelvis show nondistended urinary bladder. The uterus is surgically absent. No free fluid or pelvic lymphadenopathy. Bone windows show no acute findings. IMPRESSION: 1. No acute abnormality of abdomen or pelvis. No evidence of aneurysm or hemodynamically significant stenosis. 2. Right-sided nephrolithiasis, nonobstructive. 3. There is mild wall thickening of the distal thoracic esophagus in patient status post lap band placement. This could be related to acute or chronic esophagitis. Electronically signed by: Jm Beauchamp MD (08/05/2020 6:05 PM) KIM
[2020-08-05 18:11] LABS: BASO % 1 % (0-3); EOS # 0.1 x10^3/uL (0.0-0.7); EOS % 1 % (0-3); HEMATOCRIT 40.1 % (36.0-47.0); HEMOGLOBIN 13.2 g/dL (12.0-15.5); LYMPH # 1.3 x10^3/uL (1.0-4.8); LYMPH % 28 % (24-48); MEAN CORPUSCULAR HEMOGLOBIN 32 pg (25-35); MEAN CORPUSCULAR HGB CONC 33 g/dL (31-37); MEAN CORPUSCULAR VOLUME 96 fL (79-100); MONO # 0.4 x10^3/uL (0.0-1.1); MONO % 8 % (0-9); NEUT # 2.9 x10^3uL (1.8-7.7); NEUT % 62 % (31-73); PLATELET COUNT 214 x10^3/uL (140-400); RED BLOOD COUNT 4.19 x10^6/uL (3.50-5.40); RED CELL DISTRIBUTION WIDTH 14.7 % (11.5-14.5); WHITE BLOOD COUNT 4.7 x10^3/uL (4.0-11.0)
[2020-08-05 18:15] LABS: BILIRUBIN,URINE NEG (NEG); CLARITY,URINE HAZY; COLOR,URINE YELLOW; GLUCOSE,URINE NEG (NEG); NITRITE,URINE NEG (NEG); UROBILINOGEN,URINE 0.2 mg/dL (0.2 mg/dL)
[2020-08-05 18:16] LABS: BACTERIA,URINE MOD /HPF (0-FEW); RBC,URINE >40 /HPF (0-2); SQUAMOUS EPITHELIAL CELL,UR FEW /LPF; WBC,URINE 0 /HPF (0-4)
[2020-08-05 18:22] LABS: ALBUMIN 3.9 g/dL (3.4-5.0); ALBUMIN/GLOBULIN RATIO 1.3 (1.0-1.7); TOTAL BILIRUBIN 1.4 mg/dL (0.2-1.0)
[2020-08-05 18:42] VITALS: BP 106/54
== END 2020-08-05 19:22 | disposition home or self-care (01) ==
LOC: ER 16:14
DX: R10.32 Left lower quadrant pain (principal); R31.9 Hematuria, unspecified; K21.9 Gastro-esophageal reflux disease without esophagitis; E66.01 Morbid (severe) obesity due to excess calories; Z87.442 Personal history of urinary calculi; Z68.23 Body mass index [BMI] 23.0-23.9, adult; Z90.49 Acquired absence of other specified parts of digestive tract; Z90.710 Acquired absence of both cervix and uterus; Z88.1 Allergy status to other antibiotic agents; Z88.8 Allergy status to other drugs, medicaments and biological substances
CPT/HCPCS: 36415; 74174; 80053; 81001; 83605; 83690; 85025; 86140; 96361; 96374; 96375; 99285; J2270; J2405; J7030; Q9967

== ENCOUNTER 2020-09-06 13:39 | Emergency (ER) | payer OTHER ==
[~2020-09-06] VITALS: Ht 172.7 cm; Wt 71.2 kg
[2020-09-06 14:11] VITALS: BP 99/76
--- NOTE | 2020-09-06 15:14 | PHYS DOC ---
Past History Past Medical History: GERD, Kidney Stones, Other Additional Past Medical Histor: esophagitis with bleeding ulcers (MARIANELA JEAN-BAPTISTE APRN) Past Surgical History: Cholecystectomy, Hysterectomy, Other Additional Past Surgical Histo: lap band (MARIANELA JEAN-BAPTISTE APRN) Smoking: Non-smoker Alcohol Use: Rarely Drug Use: None (MARIANELA JEAN-BAPTISTE APRN) Adult General Chief Complaint Chief Complaint: NAUSEA/VOMITING/DIARRHEA HPI HPI Patient is a 31-year-old female patient who presents with malaise, nausea, vomiting, diarrhea. Patient states she has had this ongoing for the last several days, has gotten worse today. States she has recently seen her primary care provider, had been tested for Covid, strep, influenza, within the last 48 hours with all results negative. States symptoms all started with a sore throat which has improved, however her nausea and vomiting have much improved. States she has chronic low potassium and Dr. Primary care and was advised to come to the hospital for fluids and for evaluation of her labs to make sure she was not hypokalemic and hyponatremic. Patient also reports she has had some left lower quadrant pain intermittently for the last several months, reports she has a follow-up for surgical removal of her ovary due to ovarian cysts in approximately 10 days, with this pain being unchanged from normal. States she has not take any medications for this because nothing has seemed to work in the past. States she just is used to dealing with the pain. Denies any fever. (MARIANELA JEAN-BAPTISTE APRN) Review of Systems Review of Systems Constitutional: Denies fever or chills reports malaise, decreased appetite due to nausea and vomiting. [] Eyes: Denies change in visual acuity, redness, or eye pain [] HENT: Denies nasal congestion does report she has a little sore throat, has recently tested negative for strep yesterday [] Respiratory: Denies cough or shortness of breath [] Cardiovascular: No additional information not addressed in HPI [] GI: Reports nausea, vomiting, diarrhea, denies any bloody stools, denies any bloody emesis. Reports she had LAP-BAND surgery approximately 10 years ago with no complications. [] : Denies dysuria or hematuria does report some decreased urine output [] Musculoskeletal: Denies back pain or joint pain does report some body aches [] Integument: Denies rash or skin lesions [] Neurologic: Denies headache, focal weakness or sensory changes [] Endocrine: Denies polyuria or polydipsia [] All other systems were reviewed and found to be within normal limits, except as documented in this note. (MARIANELA JEAN-BAPTISTE APRN) Allergies Allergies Allergies Coded Allergies Type Severity Reaction Last Updated Verified amoxicillin Allergy Intermediate 08/05/20 Yes calamine Allergy Intermediate 08/05/20 Yes (MARIANELA JEAN-BAPTISTE APRN) Physical Exam Physical Exam Constitutional: Well developed, well nourished, no acute distress, non-toxic appearance. Appears uncomfortable [] HENT: Normocephalic, atraumatic, bilateral external ears normal, oropharynx moist, no oral exudates, nose normal. Tonsils 1+, no purulence, minimal erythema to posterior oropharynx, uvula midline [] Eyes: PERRLA, EOMI, conjunctiva normal, no discharge. [] Neck: Normal range of motion, no tenderness, supple, no stridor. [] Cardiovascular:Heart rate regular rhythm, no murmur [] Lungs & Thorax: Bilateral breath sounds clear to auscultation [] Abdomen: Bowel sounds normal, soft, no masses, no pulsatile masses. Tenderness to left lower quadrant [] Skin: Warm, dry, no erythema, no rash. [] Back: No tenderness, no CVA tenderness. [] Extremities: No tenderness, no cyanosis, no clubbing, ROM intact, no edema. [] Neurologic: Alert and oriented X 3, normal motor function, normal sensory function, no focal deficits noted. [] Psychologic: Affect normal, judgement normal, mood normal. [] (MARIANELA JEAN-BAPTISTE APRN) Current Patient Data Vital Signs Vital Signs Date Time Temp Pulse Resp B/P (MAP) Pulse Ox O2 Delivery O2 Flow Rate FiO2 09/06/20 14:11 98.9 76 18 99/76 (84) 98 09/06/20 14:00 Room Air (MARIANELA JEAN-BAPTISTE APRN) EKG EKG [] (MARIANELA JEAN-BAPTISTE APRN) Radiology/Procedures Radiology/Procedures [] (MARIANELA JEAN-BAPTISTE APRN) Heart Score Risk Factors: Risk Factors: DM, Current or recent (<one month) smoker, HTN, HLP, family history of CAD, obesity. Risk Scores: Risk Factors: DM, Current or recent (<one month) smoker, HTN, HLP, family history of CAD, obesity. (MARIANELA JEAN-BAPTISTE APRN) Course & Med Decision Making Course & Med Decision Making Pertinent Labs and Imaging studies reviewed. (See chart for details) [] Patient reports she does not want to continue to wait for second IV attempt and is a redraw for her CMP. Patient reports that she is wants to go home at this time. Advised patient we have been attempting to help her nausea and dehydration, but she wants to go at this time. Advised patient to continue to hydrate at home, follow-up with primary care as needed. (MARIANELA JEAN-BAPTISTE APRN) Dragon Disclaimer Dragon Disclaimer This electronic medical record was generated, in whole or in part, using a voice recognition dictation system. (MARIANELA JEAN-BAPTISTE APRN) Departure Departure: Impression: Primary Impression: Nausea and vomiting Disposition: 01 DC HOME SELF CARE/HOMELESS Condition: STABLE Referrals: NNEKA NOEL (PCP) Patient Instructions: Nausea and Vomiting Additional Instructions: As we discussed, make sure you continue to try to hydrate. Eat small meals as he can, drink small quantities of water frequently to keep yourself hydrated. Follow-up with your primary care provider as needed. Attending Co-Sign Attending Co-Sign The patient was seen and interviewed as well as examined at the bedside. The chart was reviewed. The case was discussed. Agree with the plan of care. (JUANCARLOS AYALA MD) Problem Qualifiers Primary Impression: Nausea and vomiting Vomiting type: unspecified Vomiting Intractability: non-intractable Qualified Codes: R11.2 - Nausea with vomiting, unspecified MARIANELA JEAN-BAPTISTE APRN Sep 06, 2020 15:14 JUANCARLOS AYALA MD Sep 07, 2020 04:56
[2020-09-06] MEDS ORDERED: KETOROLAC 15 MG/ML VIAL. IVP ONE (15:15)
[2020-09-06] MEDS ORDERED: IV NORMAL SALINE 1,000ML 1,000 ML IV ONE (15:15)
[2020-09-06] MEDS ORDERED: diphenhydrAMINE 50 MG/ML VIAL IVP ONE (15:15)
[2020-09-06] MEDS ORDERED: METOCLOPRAMIDE HCL 10 MG/2 ML VIAL. IVP ONE (15:15)
[2020-09-06 16:55] LABS: BASO # 0.1 x10^3/uL (0.0-0.2); BASO % 1 % (0-3); EOS # 0.1 x10^3/uL (0.0-0.7); EOS % 2 % (0-3); HEMATOCRIT 42.8 % (36.0-47.0); HEMOGLOBIN 14.2 g/dL (12.0-15.5); LYMPH # 1.5 x10^3/uL (1.0-4.8); LYMPH % 26 % (24-48); MEAN CORPUSCULAR HEMOGLOBIN 31 pg (25-35); MEAN CORPUSCULAR HGB CONC 33 g/dL (31-37); MEAN CORPUSCULAR VOLUME 95 fL (79-100); MONO # 0.4 x10^3/uL (0.0-1.1); MONO % 8 % (0-9); NEUT # 3.7 x10^3uL (1.8-7.7); NEUT % 64 % (31-73); PLATELET COUNT 217 x10^3/uL (140-400); RED BLOOD COUNT 4.52 x10^6/uL (3.50-5.40); RED CELL DISTRIBUTION WIDTH 14.6 % (11.5-14.5); WHITE BLOOD COUNT 5.9 x10^3/uL (4.0-11.0)
== END 2020-09-06 18:50 | disposition home or self-care (01) ==
LOC: ER 13:39
DX: R11.2 Nausea with vomiting, unspecified (principal); R19.7 Diarrhea, unspecified; R10.32 Left lower quadrant pain; R53.81 Other malaise; K21.9 Gastro-esophageal reflux disease without esophagitis; Z90.710 Acquired absence of both cervix and uterus; Z90.49 Acquired absence of other specified parts of digestive tract; Z98.890 Other specified postprocedural states; Z88.1 Allergy status to other antibiotic agents; Z88.8 Allergy status to other drugs, medicaments and biological substances; Z87.442 Personal history of urinary calculi
CPT/HCPCS: 36415; 85025; 96361; 96374; 96375; 99284; J1200; J1885; J2765; J7030

== ENCOUNTER 2020-09-22 17:17 | Emergency (ER) | payer OTHER ==
[~2020-09-22] VITALS: Ht 172.7 cm; Wt 71.2 kg
--- NOTE | 2020-09-22 18:30 | PHYS DOC ---
Past History Past Medical History: Endometriosis, GERD, Kidney Stones, Other Additional Past Medical Histor: esophagitis with bleeding ulcers Past Surgical History: Cholecystectomy, Hysterectomy, Other Additional Past Surgical Histo: lap band Smoking: Non-smoker Alcohol Use: Rarely Drug Use: None Adult General Chief Complaint Chief Complaint: POST-OP PROBLEM HPI HPI Patient is a 39-year-old female presenting for suprapubic pain. Has a history of endometriosis and prior hysterectomy. Reports she had laparoscopic surgical removal of her left fallopian tube and ovary 5 days ago. She has been taking prescribed Percocet 5 as scheduled from prescribing surgeon with moderate relief in pain but reports running out and now experiencing pain out of proportion prompting her to visit our ER for evaluation. Denies fever, admitting suprapubic pain at this time with feelings of anorexia Review of Systems Review of Systems Fourteen body systems of review of systems have been reviewed. See HPI for p ertinent positives and negative responses, other hinds all other systems are negative, non-pertinent or non-contributory Allergies Allergies Allergies Coded Allergies Type Severity Reaction Last Updated Verified amoxicillin Allergy Intermediate 08/05/20 Yes calamine Allergy Intermediate 08/05/20 Yes Physical Exam Physical Exam Constitutional: Well developed, well nourished, moderate distress from pain, tearful, non-toxic appearance. HENT: Normocephalic, atraumatic, bilateral external ears normal, oropharynx moist, no oral exudates, nose normal. Eyes: PERRLA, EOMI, conjunctiva normal, no discharge. Neck: Normal range of motion, no tenderness, supple, no stridor. Cardiovascular: Heart rate regular, sinus rhythm, no murmurs rubs or gallops Lungs & Thorax: Bilateral breath sounds clear to auscultation Abdomen: Bowel sounds normal, soft, nonfocal tenderness to suprapubic region, voluntary guarding present, negative rebound, no masses, no pulsatile masses. Nonsurgical abdomen, no peritoneal signs Skin: Warm, dry, no erythema, no rash. Back: No tenderness, no CVA tenderness. Extremities: No tenderness, no cyanosis, no clubbing, ROM intact, no edema. Neurologic: Alert and oriented X 3, grossly normal motor & sensory function, no focal deficits noted. Psychologic: Tearful affect, judgement normal, anxious mood Current Patient Data Vital Signs Vital Signs Date Time Temp Pulse Resp B/P (MAP) Pulse Ox O2 Delivery O2 Flow Rate FiO2 11/22/20 17:33 98.5 88 18 119/68 (85) 100 Lab Results Laboratory Tests Test 09/22/20 18:52 09/22/20 19:13 White Blood Count 6.4 x10^3/uL (4.0-11.0) Red Blood Count 3.98 x10^6/uL (3.50-5.40) Hemoglobin 12.2 g/dL (12.0-15.5) Hematocrit 37.6 % (36.0-47.0) Mean Corpuscular Volume 95 fL (79-100) Mean Corpuscular Hemoglobin 31 pg (25-35) Mean Corpuscular Hemoglobin Concent 32 g/dL (31-37) Red Cell Distribution Width 14.8 % (11.5-14.5) Platelet Count 243 x10^3/uL (140-400) Neutrophils (%) (Auto) 72 % (31-73) Lymphocytes (%) (Auto) 17 % (24-48) Monocytes (%) (Auto) 8 % (0-9) Eosinophils (%) (Auto) 2 % (0-3) Basophils (%) (Auto) 1 % (0-3) Neutrophils # (Auto) 4.6 x10^3uL (1.8-7.7) Lymphocytes # (Auto) 1.1 x10^3/uL (1.0-4.8) Monocytes # (Auto) 0.5 x10^3/uL (0.0-1.1) Eosinophils # (Auto) 0.2 x10^3/uL (0.0-0.7) Basophils # (Auto) 0.1 x10^3/uL (0.0-0.2) Sodium Level 138 mmol/L (136-145) Potassium Level 3.4 mmol/L (3.5-5.1) Chloride Level 103 mmol/L (98-107) Carbon Dioxide Level 29 mmol/L (21-32) Anion Gap 6 (6-14) Blood Urea Nitrogen 9 mg/dL (7-20) Creatinine 0.8 mg/dL (0.6-1.0) Estimated GFR (Cockcroft-Gault) 80.3 BUN/Creatinine Ratio 11 (6-20) Glucose Level 85 mg/dL (70-99) Calcium Level 8.5 mg/dL (8.5-10.1) Total Bilirubin 1.1 mg/dL (0.2-1.0) Aspartate Amino Transf (AST/SGOT) 13 U/L (15-37) Alanine Aminotransferase (ALT/SGPT) 22 U/L (14-59) Alkaline Phosphatase 67 U/L (46-116) Total Protein 7.0 g/dL (6.4-8.2) Albumin 3.7 g/dL (3.4-5.0) Albumin/Globulin Ratio 1.1 (1.0-1.7) Urine Collection Type Unknown Urine Color Yellow Urine Clarity Clear Urine pH 6.0 Urine Specific [place] >=1.030 Urine Protein Neg (NEG-TRACE) Urine Glucose (UA) Neg mg/dL (NEG) Urine Ketones (Stick) Neg mg/dL (NEG) Urine Blood Small (NEG) Urine Nitrite Neg (NEG) Urine Bilirubin Neg (NEG) Urine Urobilinogen Dipstick 0.2 mg/dL (0.2 mg/dL) Urine Leukocyte Esterase Neg (NEG) Urine RBC 3-5 /HPF (0-2) Urine WBC Occ /HPF (0-4) Urine Squamous Epithelial Cells Few /LPF Urine Bacteria 0 /HPF (0-FEW) Urine Mucus Mod /LPF EKG EKG [] Radiology/Procedures Radiology/Procedures PROCEDURE: CT ABDOMEN PELVIS WO CONTRAST INDICATION: Reason: suprapubic pain, recent left fallopian tube ovary removal 5d ag / Spl. Instructions: / History: . COMPARISON: August 05, 2020 TECHNIQUE: Axial CT images obtained through the abdomen and pelvis without contrast. Limited assessment of solid organ structures and vasculature secondary to lack of intravenous contrast.. One or more of the following individualized dose reduction techniques were utilized for this examination: 1. Automated exposure control; 2. Adjustment of the mA and/or kV according to patient size; 3. Use of iterative reconstruction technique. FINDINGS: LAP-BAND is seen with some distention of the distal esophagus with fluid within. Abdominal aorta is not aneurysmal. No intrahepatic bile duct dilation. Postcholecystectomy changes with enlargement of the liver. Limited evaluation of the pancreas without contrast. Small cystic lesion within the spleen again seen. No left-sided hydronephrosis. Urinary bladder is decompressed. Multiple nonobstructive right renal stones measuring up to about 2 mm. There is some free fluid within the pelvis. No dilated loops of bowel to suggest obstruction. Subcutaneous edema at the anterior abdominal wall. The anterior abdominal wall there is a fluid and air collection identified measuring up to 109 x 15 mm located just superficial to the rectus musculature. Degenerative changes the spine with scoliotic curvature as well as multilevel central canal and neural foraminal stenosis. The possible appendix is not dilated. There is some edema within the pelvis. IMPRESSION: * Fluid and air collection is seen at the anterior abdominal wall. Could be related to the patient's recent surgery. Cannot exclude infectious involvement on CT. There is surrounding edema within the subcutaneous soft tissues. * Small amount of free fluid and edema seen within the pelvis. * Right-sided renal stones. Electronically signed by: Lexa Maldonado MD (09/22/2020 8:27 PM) [id number] Heart Score HEART Score for Chest Pain: HEART Score for Chest Pain Response (Comments) Value History Slighlty/Non-Suspicious 0 Age < 45 0 Total 0 Risk Factors: Risk Factors: DM, Current or recent (<one month) smoker, HTN, HLP, family history of CAD, obesity. Risk Scores: Risk Factors: DM, Current or recent (<one month) smoker, HTN, HLP, family history of CAD, obesity. Course & Med Decision Making Course & Med Decision Making Pertinent Labs and Imaging studies reviewed. (See chart for details) Patient in acute pain but hemodynamically stable and afebrile. CT imaging results discussed with operating physician, Dr. Ama Amin. ER course and work-up thus far discussed with her at length. Given that she is afebrile and has responded to ER intervention regarding pain control, joint decision made to prescribe extremely short term pain control and cover with antibiotics for potential infection until patient can be seen in upcoming 24 to 48 hours in clinic setting. I feel this plan is acceptable. I discussed proposed plan of care with patient who has had marked improvement in symptoms since arrival, she was amenable to plan as stated. Patient took Cipro and Flagyl while in ER and tolerated these medications well, she was subsequently sent home with prescription for these medications to cover potential intra-abdominal infection in addition to extremely short-term narcotic prescription for her to then review longer-term need with her surgeon tomorrow or Wednesday. Strict return precautions were discussed with good understanding by patient, all questions and concerns addressed prior to ER departure in improved condition Dragon Disclaimer Genia Disclaimer This electronic medical record was generated, in whole or in part, using a voice recognition dictation system. Departure Departure: Impression: Primary Impression: Abdominal pain Disposition: 01 DC HOME SELF CARE/HOMELESS Condition: IMPROVED Referrals: NNEKA NOEL (PCP) Patient Instructions: Abdominal Pain (Nonspecific) Additional Instructions: As discussed prior to ER departure, please keep your currently scheduled outpatient FOOD PHOTOGRAPHER visit in upcoming 72 hours. If pain worsens or persists, your FOOD PHOTOGRAPHER physician said she is available to see you in her clinic tomorrow at the [facility] location or on Wednesday at the [place] location. Your evaluation was not suggestive of any emergent condition requiring medical intervention at this time. However, some abdominal problems make take more time to appear. Therefore, it is important for you to watch for any new symptoms or worsening of your current condition. Return to the Emergency Department if you experience worsening pain, persistent fevers greater than 100.4, recurrent vomiting, blood in vomit, blood in stool, dark tarry stool, chest pain, difficulty breathing, or any other concerning symptoms. Scripts Oxycodone Hcl/Acetaminophen (PERCOCET 5-325 MG TABLET ) 1 Each Tablet 1 TAB PO PRN QID PRN for SEVERE PAIN 7-10 MDD 4 Tablet(s), #5 TAB 0 Refills Prov: DOTTIE PETERSEN DO 09/22/20 Ciprofloxacin Hcl (CIPROFLOXACIN HCL) 500 Mg Tablet 1 TAB PO BID for INTRA-ABDOMINAL INFECTION, #14 TAB Prov: DOTTIE PETERSEN DO 09/22/20 Metronidazole (METRONIDAZOLE) 500 Mg Tablet 1 TAB PO BID for INTRA-ABDOMINAL INFECTION for 7 Days, #14 TAB 0 Refills Prov: DOTTIE PETERSEN DO 09/22/20 DOTTIE PETERSEN DO Sep 22, 2020 18:30
[2020-09-22 19:30] LABS: BASO # 0.1 x10^3/uL (0.0-0.2); BASO % 1 % (0-3); EOS # 0.2 x10^3/uL (0.0-0.7); EOS % 2 % (0-3); HEMATOCRIT 37.6 % (36.0-47.0); HEMOGLOBIN 12.2 g/dL (12.0-15.5); LYMPH # 1.1 x10^3/uL (1.0-4.8); LYMPH % 17 % (24-48); MEAN CORPUSCULAR HEMOGLOBIN 31 pg (25-35); MEAN CORPUSCULAR HGB CONC 32 g/dL (31-37); MEAN CORPUSCULAR VOLUME 95 fL (79-100); MONO # 0.5 x10^3/uL (0.0-1.1); MONO % 8 % (0-9); NEUT # 4.6 x10^3uL (1.8-7.7); NEUT % 72 % (31-73); PLATELET COUNT 243 x10^3/uL (140-400); RED BLOOD COUNT 3.98 x10^6/uL (3.50-5.40); RED CELL DISTRIBUTION WIDTH 14.8 % (11.5-14.5); WHITE BLOOD COUNT 6.4 x10^3/uL (4.0-11.0)
[2020-09-22 19:35] LABS: CALCIUM 8.5 mg/dL (8.5-10.1); CREATININE 0.8 mg/dL (0.6-1.0); GFR 80.3; POTASSIUM 3.4 mmol/L (3.5-5.1)
[2020-09-22] MEDS: MORPHINE SULFATE 4 MG/ML DISP.SYRIN. IV ONE (19:36)
[2020-09-22 19:42] LABS: ALBUMIN 3.7 g/dL (3.4-5.0); ALBUMIN/GLOBULIN RATIO 1.1 (1.0-1.7); TOTAL BILIRUBIN 1.1 mg/dL (0.2-1.0)
[2020-09-22 19:49] LABS: BILIRUBIN,URINE NEG (NEG); CLARITY,URINE CLEAR; COLOR,URINE YELLOW; GLUCOSE,URINE NEG (NEG); NITRITE,URINE NEG (NEG); UROBILINOGEN,URINE 0.2 mg/dL (0.2 mg/dL); WBC,URINE OCC /HPF (0-4)
[2020-09-22 19:50] LABS: BACTERIA,URINE 0 /HPF (0-FEW); SQUAMOUS EPITHELIAL CELL,UR FEW /LPF
[2020-09-22] MEDS ORDERED: MORPHINE SULFATE 4 MG/ML DISP.SYRIN. IV ONE (20:30)
--- NOTE | 2020-09-22 20:30 | RAD ---
INDICATION: Reason: suprapubic pain, recent left fallopian tube ovary removal 5d ag / Spl. Instructions: / History: . COMPARISON: August 05, 2020 TECHNIQUE: Axial CT images obtained through the abdomen and pelvis without contrast. Limited assessment of solid organ structures and vasculature secondary to lack of intravenous contrast.. One or more of the following individualized dose reduction techniques were utilized for this examination: 1. Automated exposure control; 2. Adjustment of the mA and/or kV according to patient size; 3. Use of iterative reconstruction technique. FINDINGS: LAP-BAND is seen with some distention of the distal esophagus with fluid within. Abdominal aorta is not aneurysmal. No intrahepatic bile duct dilation. Postcholecystectomy changes with enlargement of the liver. Limited evaluation of the pancreas without contrast. Small cystic lesion within the spleen again seen. No left-sided hydronephrosis. Urinary bladder is decompressed. Multiple nonobstructive right renal stones measuring up to about 2 mm. There is some free fluid within the pelvis. No dilated loops of bowel to suggest obstruction. Subcutaneous edema at the anterior abdominal wall. The anterior abdominal wall there is a fluid and air collection identified measuring up to 109 x 15 mm located just superficial to the rectus musculature. Degenerative changes the spine with scoliotic curvature as well as multilevel central canal and neural foraminal stenosis. The possible appendix is not dilated. There is some edema within the pelvis. IMPRESSION: * Fluid and air collection is seen at the anterior abdominal wall. Could be related to the patient's recent surgery. Cannot exclude infectious involvement on CT. There is surrounding edema within the subcutaneous soft tissues. * Small amount of free fluid and edema seen within the pelvis. * Right-sided renal stones. Electronically signed by: Lexa Maldonado MD (09/22/2020 8:27 PM) [id number]
[2020-09-22] MEDS: HYDROmorphone PF 1 MG/ML DISP.SYRIN IVP ONE (20:55)
[2020-09-22] MEDS: ACETAMINOPHEN 500 MG TABLET PO ONE (20:56)
[2020-09-22] MEDS: IV NORMAL SALINE 1,000ML 1,000 ML IV ONE (20:56)
[2020-09-22] MEDS ORDERED: CIPR500T PO (21:56)
[2020-09-22] MEDS ORDERED: METR-34 PO (21:56)
[2020-09-22] MEDS ORDERED: OXYC1TAB15 PO (21:56)
[2020-09-22 22:00] VITALS: BP 109/63
[2020-09-22] MEDS: metroNIDAZOLE 500 MG TABLET PO ONE (22:11)
[2020-09-22] MEDS: CIPROFLOXACIN HCL 500 MG TABLET PO ONE (22:11)
== END 2020-09-22 22:20 | disposition home or self-care (01) ==
LOC: ER 17:17
DX: G89.18 Other acute postprocedural pain (principal); R10.30 Lower abdominal pain, unspecified; R63.0 Anorexia; K21.9 Gastro-esophageal reflux disease without esophagitis; Z87.442 Personal history of urinary calculi; Z90.49 Acquired absence of other specified parts of digestive tract; Z90.710 Acquired absence of both cervix and uterus; Z88.1 Allergy status to other antibiotic agents; Z88.8 Allergy status to other drugs, medicaments and biological substances
CPT/HCPCS: 36415; 74176; 80053; 81001; 85025; 96361; 96374; 96375; J1170; J2270; 99285-25; J7030

== ENCOUNTER 2021-03-22 20:07 | Emergency (ER) | payer OTHER ==
[~2021-03-22] VITALS: Ht 172.7 cm; Wt 60.0 kg
[~2021-03-22 20:07] MED LIST changes: +CIPR500T2 PO; +METR-34 PO; +OXYC1TAB15 PO
[2021-03-22] MEDS ORDERED: KETOROLAC 15 MG/ML VIAL. IV ONE (20:45)
[2021-03-22] MEDS ORDERED: ONDANSETRON PF 4 MG/2 ML VIAL. IVP ONE ×2 (20:45→21:30)
[2021-03-22 20:57] LABS: BASO % 1 % (0-3); EOS # 0.1 x10^3/uL (0.0-0.7); EOS % 2 % (0-3); HEMATOCRIT 38.1 % (36.0-47.0); HEMOGLOBIN 12.8 g/dL (12.0-15.5); LYMPH % 29 % (24-48); MEAN CORPUSCULAR HEMOGLOBIN 33 pg (25-35); MEAN CORPUSCULAR HGB CONC 34 g/dL (31-37); MEAN CORPUSCULAR VOLUME 97 fL (79-100); MONO # 0.4 x10^3/uL (0.0-1.1); MONO % 6 % (0-9); NEUT # 4.3 x10^3uL (1.8-7.7); NEUT % 62 % (31-73); PLATELET COUNT 213 x10^3/uL (140-400); RED BLOOD COUNT 3.92 x10^6/uL (3.50-5.40); RED CELL DISTRIBUTION WIDTH 15.9 % (11.5-14.5); WHITE BLOOD COUNT 6.9 x10^3/uL (4.0-11.0)
[2021-03-22 20:58] LABS: U PREG PATIENT NEGATIVE (NEG)
--- NOTE | 2021-03-22 21:01 | PHYS DOC ---
Past History Past Medical History: Endometriosis, GERD, Kidney Stones, Other Additional Past Medical Histor: esophagitis with bleeding ulcers (ANTONIO FLORES APRN) Past Surgical History: Cholecystectomy, Hysterectomy, Other Additional Past Surgical Histo: lap band (ANTONIO FLORES APRN) Smoking: Non-smoker Alcohol Use: Rarely Drug Use: None (ANTONIO FLORES APRN) General Adult EDM: Chief Complaint: FLANK PAIN HPI: HPI: Patient is a 40-year-old female who presents with right-sided flank pain and lower abdominal pain. Patient states that she has a history of kidney stones. Patient reports nausea and vomiting. Patient denies taking anything prior to arrival. Patient denies dysuria or frequency. Patient has history of GERD, kidney stones, endometriosis. (ANTONIO FLORES APRN) Review of Systems: Review of Systems: Constitutional: Denies fever or chills Eyes: Denies change in visual acuity HENT: Denies nasal congestion or sore throat Respiratory: Denies cough or shortness of breath Cardiovascular: Denies chest pain or edema GI: Reports right lower abdominal pain, nausea, vomiting. Denies bloody stools or diarrhea : Denies dysuria Musculoskeletal: Denies back pain, reports right-sided flank pain Integument: Denies rash Neurologic: Denies headache, focal weakness or sensory changes Endocrine: Denies polyuria or polydipsia Lymphatic: Denies swollen glands Psychiatric: Denies depression or anxiety (ANTONIO FLORES APRN) Current Medications: Current Meds: Current Medications Medications (Trade) Dose Ordered Sig/Shila Start Time Stop Time Status Last Admin Dose Admin Hydromorphone HCl (Dilaudid) 1 mg 1X ONCE 03/22/21 21:00 03/22/21 21:01 UNV Ketorolac Tromethamine (Toradol 15mg Vial) 15 mg 1X ONCE 03/22/21 20:45 03/22/21 20:46 DC 03/22/21 20:43 15 MG Ondansetron HCl (Zofran) 4 mg 1X ONCE 03/22/21 21:00 03/22/21 21:01 UNV (ANTONIO FLORES APRN) Allergies: Allergies: Allergies Coded Allergies Type Severity Reaction Last Updated Verified amoxicillin Allergy Intermediate 08/05/20 Yes calamine Allergy Intermediate 08/05/20 Yes (ANTONIO FLORES APRN) Physical Exam: PE: Constitutional: Well developed, well nourished, no acute distress, non-toxic appearance. [] HENT: Normocephalic, atraumatic, bilateral external ears normal, oropharynx moist, no oral exudates, nose normal. [] Eyes: PERRLA, EOMI, conjunctiva normal, no discharge. [] Neck: Normal range of motion, no tenderness, supple, no stridor. [] Cardiovascular:Heart rate regular rhythm, no murmur [] Lungs & Thorax: Bilateral breath sounds clear to auscultation [] Abdomen: Bowel sounds normal, soft, no tenderness, no masses, no pulsatile masses. [] Skin: Warm, dry, no erythema, no rash. [] Back: No tenderness, right side CVA tenderness. [] Extremities: No tenderness, no cyanosis, no clubbing, ROM intact, no edema. [] Neurologic: Alert and oriented X 3, normal motor function, normal sensory function, no focal deficits noted. [] Psychologic: Affect normal, judgement normal, mood normal. [] (ANTONIO FLORES APRN) EKG: EKG: [] (ANTONIO FLORES APRN) Radiology/Procedures: Radiology/Procedures: [] (ANTONIO FLORES APRN) Heart Score: C/O Chest Pain: No Risk Factors: Risk Factors: DM, Current or recent (<one month) smoker, HTN, HLP, family history of CAD, obesity. Risk Scores: Score 0 - 3: 2.5% MACE over next 6 weeks - Discharge Home Score 4 - 6: 20.3% MACE over next 6 weeks - Admit for Clinical Observation Score 7 - 10: 72.7% MACE over next 6 weeks - Early Invasive Strategies (ANTONIO FLORES APRN) Course & Med Decision Making: Course & Med Decision Making Pertinent Labs and Imaging studies reviewed. (See chart for details) [] 40-year-old female presents with right-sided flank pain and lower abdominal pain. Patient reports vomiting 1 time prior to arrival. Patient given Toradol, Zofran for pain with no relief. Patient requesting Dilaudid for pain control and a second dose of Zofran. CT of abdomen ordered to rule out kidney stone. UA ordered to rule out infection. Normal saline bolus given for hydration. UA is negative for infection. Moderate blood. Potassium was 3.0. 40 mEq of potassium given. CT shows a few nonobstructing renal calculi. Explained to patient she may have already passed a kidney stone and needs to follow-up with her PCP. Given patient a prescription for Zofran and pain medication for home until she can follow-up. (ANTONIO FLORES APRN) Course & Med Decision Making Did not see or evaluate patient. Agree with [employer]IO STATION MANAGER's work-up and disposition per note (SOREN TATE MD) Dragon Disclaimer: Dragon Disclaimer: This electronic medical record was generated, in whole or in part, using a voice recognition dictation system. (ANTONIO FLORES APRN) Departure Departure: Impression: Primary Impression: Flank pain Disposition: HOME / SELF CARE / HOMELESS Condition: STABLE Referrals: NNEKA NOEL (PCP) Patient Instructions: Kidney Stones Additional Instructions: You are seen in the emergency room for right-sided abdominal and flank pain. CT of your abdomen for kidney stones. Sending home with nausea medication also pain medication until you can follow-up with your PCP. Please call your PCP on Wednesday to follow-up. Please return the emergency room for worsening symptoms or concerns EMERGENCY DEPARTMENT GENERAL DISCHARGE INSTRUCTIONS Thank you for coming to [facility] (ED) today and trusting us with you care. We trust that you had a positivie experience in our Emergency Department. If you wish to speak to the department management, you may call the director at [phone]. YOUR FOLLOW UP INSTRUCTIONS ARE FOLLOWS: 1. Do you have a private Doctor? If you do not have a private doctor, please ask for a resource list of physicians or clinics that may be able to assist you with follow up care. 2. The Emergency Physician has interpreted your x-rays. The X-Ray specialist will also review them. If there is a change in the findings, you will be notified in 48 hours when at all possible. 3. A lab test or culture has been done, your results will be reviewed and you will be notified if you need a change in treatment. ADDITIONAL INSTRUCTIONS AND INFORMATION: 1. Your care today has been supervised by a physician who is specially trained in emergency care. Many problems require more than one evaluation for a complete diagnosis and treatment. We recommend that you schedule your follow up appointment as recommended to ensure complete treatment of you illness or injury. If you are unable to obtain follow up care and continue to have a problem, or if your condition worsens, we recommend that you return to the ED. 2. We are not able to safely determine your condition over the phone nor are we able to give sound medical advice over the phone. For these safety reasons, if you call for medical advice we will ask you to come to the ED for further evaluation. 3. If you have any questions regarding these discharge instructions please call the ED at [phone]. SAFETY INFORMATION: In the interest of safety, wellness, and injury prevention; we encourage you to wear your sealbelt, if you smoke; quite smoking, and we encourage family to use a protective helmet for bicycling and other sporting events that present an increased risk for head injury. IF YOUR SYMPTOMS WORSEN OR NEW SYMPTOMS DEVELOP, OR YOU HAVE CONCERNS ABOUT YOUR CONDITION; OR IF YOUR CONDITION WORSENS WHILE YOU ARE WAITING FOR YOUR FOLLOW UP APPOINTMENT; EITHER CONTACT YOUR PRIMARY CARE DOCTOR, THE PHYSICIAN WHOSE NAME AND NUMBER YOU WERE GIVEN, OR RETURN TO THE ED IMMEDIATELY. Scripts Ondansetron Hcl (ZOFRAN) 4 Mg Tablet 4 MG PO TID PRN PRN for NAUSEA for 15 Days, #5 TAB Prov: ANTONIO FLORES APRN 03/22/21 Hydrocodone Bit/Acetaminophen (HYDROCODONE-APAP 5-325 ) 1 Each Tablet 1 TAB PO PRN Q6HRS PRN for PAIN for 3 Days, #12 TAB 0 Refills Prov: ANTONIO FLORES APRN 03/22/21 ANTONIO FLORES APRN March 22, 2021 21:01 SOREN TATE MD March 23, 2021 00:21
[2021-03-22 21:07] LABS: BILIRUBIN,URINE NEG (NEG); CLARITY,URINE CLEAR; COLOR,URINE YELLOW; GLUCOSE,URINE NEG (NEG)
[2021-03-22 21:08] LABS: NITRITE,URINE NEG (NEG)
[2021-03-22 21:10] LABS: BACTERIA,URINE FEW /HPF (0-FEW); SQUAMOUS EPITHELIAL CELL,UR MOD /LPF
[2021-03-22] MEDS ORDERED: IV NORMAL SALINE 1,000ML 1,000 ML IV ONE (21:15)
[2021-03-22] MEDS ORDERED: HYDROmorphone PF 1 MG/ML DISP.SYRIN IVP ONE (21:30)
[2021-03-22 22:10] LABS: ALBUMIN 2.9 g/dL (3.4-5.0); ALBUMIN/GLOBULIN RATIO 1.2 (1.0-1.7); CALCIUM 7.6 mg/dL (8.5-10.1); CREATININE 0.6 mg/dL (0.6-1.0); GFR 111.3; TOTAL BILIRUBIN 0.6 mg/dL (0.2-1.0); TOTAL PROTEIN 5.4 g/dL (6.4-8.2)
--- NOTE | 2021-03-22 22:23 | RAD ---
Exam: CT of abdomen and pelvis without contrast INDICATION: Right flank pain TECHNIQUE: Sequential axial images through the abdomen and pelvis obtained without IV contrast. Sagit nicole and coronal reformatted images were reconstructed from the axial data and reviewed. Exposure: One or more of the following in the visualized dose reduction techniques were utilized for this examination: 1. Automated exposure control 2. Adjustment of the MA and/or KV according to patient size 3. Use of iterative of reconstructive technique Comparisons: 09/22/2020 FINDINGS: Heart is mildly enlarged. No pleural effusion. Visualized lung bases are clear. No pleural effusion. Evaluation of solid organs is limited secondary to noncontrast technique. Liver, spleen, pancreas and adrenals are unremarkable. Gallbladder surgically absent. No perinephric inflammation or hydronephrosis. Several nonobstructing right renal calculi are noted. No ureteral calculi are identified. Bladder is decompressed not well evaluated. Uterus is absent. No abnormal adnexal mass. There is a gastric banding device noted at the upper stomach. Remainder large and small bowel are unr emarkable. Appendix is normal. No free intra-abdominal air or fluid. No obstruction. Abdominal aorta has a normal course and caliber. No enlarged intra-abdominal lymph nodes are identified. No suspicious osseous lesions or acute fractures. IMPRESSION: 1. Several nonobstructing right renal calculi. No ureteral calculi or evidence for obstructive uropa thy. 2. Normal appendix. Electronically signed by: Mi Camacho MD (03/22/2021 10:20 PM) [facility]
[2021-03-22] MEDS ORDERED: ONDA4TAB7 PO (22:34)
[2021-03-22] MEDS ORDERED: HYDR-2155 PO (22:34)
[2021-03-22 22:50] VITALS: BP 106/54
[2021-03-22] MEDS ORDERED: MORPHINE SULFATE 4 MG/ML DISP.SYRIN. IV ONE (23:00)
[2021-03-22] MEDS ORDERED: POTASSIUM CHLORIDE 20 MEQ TABLET.ER. PO ONE (23:00)
== END 2021-03-22 23:10 | disposition home or self-care (01) ==
LOC: ER 20:07
DX: R10.30 Lower abdominal pain, unspecified (principal); R11.2 Nausea with vomiting, unspecified; K21.9 Gastro-esophageal reflux disease without esophagitis; Z88.1 Allergy status to other antibiotic agents; Z90.49 Acquired absence of other specified parts of digestive tract; Z90.710 Acquired absence of both cervix and uterus
CPT/HCPCS: 36415; 74176; 80053; 81001; 81025; 85025; 96361; 96374; 96375; 96376; 99284; J1170; J1885; J2270; J2405; J7030

== ENCOUNTER 2021-04-22 23:51 | Emergency (ER) | payer OTHER ==
[~2021-04-22] VITALS: Ht 172.7 cm; Wt 58.0 kg
[~2021-04-22 23:51] MED LIST changes: +HYDR-2155 PO
[2021-04-23] MEDS ORDERED: KETOROLAC 15 MG/ML VIAL. IVP ONE (00:30)
[2021-04-23] MEDS ORDERED: IV NORMAL SALINE 1,000ML 1,000 ML IV ONE (00:30)
[2021-04-23] MEDS ORDERED: diphenhydrAMINE 50 MG/ML VIAL IVP ONE (00:30)
[2021-04-23] MEDS ORDERED: METOCLOPRAMIDE HCL 10 MG/2 ML VIAL. IVP ONE (00:30)
[2021-04-23] MEDS ORDERED: DEXAMETHASONE SOD PHOS 10 MG/ML VIAL. IV ONE (00:30)
--- NOTE | 2021-04-23 00:37 | PHYS DOC ---
Past History Past Medical History: Endometriosis, GERD, Kidney Stones, Migraines, Other Additional Past Medical Histor: esophagitis with bleeding ulcers Past Surgical History: Cholecystectomy, Hysterectomy, Other Additional Past Surgical Histo: lap band Smoking: Non-smoker Alcohol Use: Rarely Drug Use: None General Adult EDM: Chief Complaint: HEADACHE HPI: HPI: 40-year-old female with past medical history of chronic migraine headaches presents with acute headache x24 hours. Reports symptoms have not improved despite use of medication such as Fioricet. Reports some associated nausea. Denies trauma. Denies use of blood thinners. Denies fever or chills. Denies . Review of Systems: Review of Systems: Constitutional: Denies fever or chills Eyes: Denies redness or eye pain HENT: Denies nasal congestion or sore throat Respiratory: Denies cough or shortness of breath Cardiovascular: Denies chest pain or palpitations GI: Denies abdominal pain or vomiting; reports nausea : Denies dysuria or hematuria Musculoskeletal: Denies back pain or joint pain Integument: Denies rash or skin lesions Neurologic: Reports headache; denies focal weakness or sensory changes Complete systems were reviewed and found to be within normal limits, except as documented in this note. Current Medications: Current Meds: Current Medications Medications (Trade) Dose Ordered Sig/Shila Start Time Stop Time Status Last Admin Dose Admin Dexamethasone Sodium Phosphate (Decadron) 10 mg 1X ONCE 04/23/21 00:30 04/23/21 00:31 04/23/21 00:20 10 MG Diphenhydramine HCl (Benadryl) 25 mg 1X ONCE 04/23/21 00:30 04/23/21 00:31 04/23/21 00:20 25 MG Ketorolac Tromethamine (Toradol 15mg Vial) 15 mg 1X ONCE 04/23/21 00:30 04/23/21 00:31 04/23/21 00:20 15 MG Metoclopramide HCl (Reglan Vial) 10 mg 1X ONCE 04/23/21 00:30 04/23/21 00:31 04/23/21 00:20 10 MG Sodium Chloride 1,000 ml @ 1,000 mls/hr 1X ONCE 04/23/21 00:30 04/23/21 01:29 04/23/21 00:19 1,000 MLS/HR Allergies: Allergies: Allergies Coded Allergies Type Severity Reaction Last Updated Verified amoxicillin Allergy Intermediate 08/05/20 Yes calamine Allergy Intermediate 08/05/20 Yes Physical Exam: PE: Constitutional: Well developed, well nourished, appears uncomfortable, non-toxic appearance HENT: Normocephalic, atraumatic Eyes: PERRL, EOMI, conjunctiva normal, no discharge, photophobia Neck: Normal range of motion, no tenderness, supple, no meningeal signs Lungs & Thorax: No respiratory distress, equal chest rise and fall Abdomen: Soft, no tenderness Skin: Warm, dry, no erythema, no rash Extremities: No tenderness, ROM intact, no edema Neurologic: Alert and oriented X 3, normal motor function, normal sensory function, no focal deficits noted, cerebellar function intact Psychologic: Affect normal, judgment normal EKG: EKG: [] Radiology/Procedures: Radiology/Procedures: [] Heart Score: C/O Chest Pain: N/A Course & Med Decision Making: Course & Med Decision Making Patient presents with report of intractable headache x1 day. Patient neurologically intact. Denies trauma. Denies use of blood thinners. Afebrile. Symptomatic treatment provided with interval improvement. IV fluid hydration also provided. Patient stable for discharge with outpatient follow-up with PCP/neurologist. Neurology referral provided. Discussed findings and plan with patient and family, who acknowledge understanding and agreement. Genia Disclaimer: Genia Disclaimer: This electronic medical record was generated, in whole or in part, using a voice recognition dictation system. Departure Departure: Impression: Primary Impression: Headache Qualified Codes: R51.9 - Headache, unspecified Disposition: HOME / SELF CARE / HOMELESS Condition: IMPROVED Referrals: NNEKA NOEL (PCP) MAYURI PLASCENCIA MD Patient Instructions: Headache, FAQs Additional Instructions: Increase fluid hydration. Use over the counter Ibuprofen as needed. May also continue previously prescribed nausea medication as needed. Scripts Butalb/Acetaminophen/Caffeine ([id number] 50-325-40) 1 Each Tablet 1 EACH PO Q6HRS PRN for HEADACHE, #14 TAB Prov: PARAS SCALES DO 04/23/21 PARAS SCALES DO Apr 23, 2021 00:37
[2021-04-23] MEDS ORDERED: BUTA1TAB23 PO (01:16)
[2021-04-23 01:17] VITALS: BP 130/48
== END 2021-04-23 01:35 | disposition home or self-care (01) ==
LOC: ER 23:51
DX: G43.909 Migraine, unspecified, not intractable, without status migrainosus (principal); K21.9 Gastro-esophageal reflux disease without esophagitis; Z87.442 Personal history of urinary calculi; Z88.1 Allergy status to other antibiotic agents; Z88.8 Allergy status to other drugs, medicaments and biological substances
CPT/HCPCS: 96361; 96374; 96375; 99284; J1100; J1200; J1885; J2765; J7030

== ENCOUNTER 2021-05-29 20:04 | Emergency (ER) | payer OTHER ==
[~2021-05-29] VITALS: Ht 172.7 cm; Wt 58.0 kg
[~2021-05-29 20:04] MED LIST changes: +BUTA1TAB23 PO
--- NOTE | 2021-05-29 20:39 | PHYS DOC ---
Past History Past Medical History: Endometriosis, GERD, Kidney Stones, Migraines, Other Additional Past Medical Histor: esophagitis w/bleeding ulcers Past Surgical History: Cholecystectomy, Hysterectomy, Other Additional Past Surgical Histo: l. salpingo-ooperectomy, lap band Smoking: Non-smoker Alcohol Use: None Drug Use: None Adult General Chief Complaint Chief Complaint: ABDOMINAL PAIN HPI HPI Patient is a 40-year-old female with a past medical history significant for cholecystectomy and renal stones who presents with right lower quadrant abdominal pain that started a couple hours ago, sharp in nature, 8 out of 10 associated with nausea and vomiting, with no radiation. Denies any recent traumas, travels, illnesses, fevers, chest pain, shortness of breath, dysuria, h ematuria, blood in the stool or diarrhea. Review of Systems Review of Systems Review of systems otherwise unremarkable except noted in HPI Allergies Allergies Allergies Coded Allergies Type Severity Reaction Last Updated Verified amoxicillin Allergy Intermediate 08/05/20 Yes calamine Allergy Intermediate 08/05/20 Yes Physical Exam Physical Exam Constitutional: Well developed, well nourished, no acute distress, non-toxic appearance. [] HENT: Normocephalic, atraumatic, Eyes: conjunctiva normal, no discharge. [] Neck: Normal range of motion, no tenderness, supple, no stridor. [] Cardiovascular:Heart rate regular rhythm, no murmur [] Lungs & Thorax: Bilateral breath sounds clear to auscultation [] Abdomen: soft, right lower quadrant tenderness, no masses, no pulsatile masses. [] Skin: Warm, dry, no erythema, no rash. [] Back: Right CVA tenderness. [] Extremities: No tenderness, ROM intact, no edema. [] Neurologic: Alert and oriented X 3, no focal deficits noted. [] Psychologic: Affect normal, judgement normal, mood normal. [] EKG EKG [] Radiology/Procedures Radiology/Procedures [] Heart Score C/O Chest Pain: No Risk Factors: Risk Factors: DM, Current or recent (<one month) smoker, HTN, HLP, family history of CAD, obesity. Risk Scores: Risk Factors: DM, Current or recent (<one month) smoker, HTN, HLP, family history of CAD, obesity. Course & Med Decision Making Course & Med Decision Making Patient is a 40-year-old female who presents with right lower quadrant/right flank pain Vital signs not concerning. Physical exam noted above. Patient placed on monitor with IV access established and IV fluid begun. Given morphine for pain and Zofran for nausea. [] Dragon Disclaimer Dragon Disclaimer This electronic medical record was generated, in whole or in part, using a voice recognition dictation system. Departure Departure: Impression: Primary Impression: Constipation Additional Impression: Enteritis Disposition: HOME / SELF CARE / HOMELESS Condition: GOOD Referrals: URIEL BAI (PCP) Patient Instructions: Colitis, Constipation, Adult Additional Instructions: Thank you for coming into the emergency department tonight and allowing us to take care of you. Please read all the attached information very carefully. As discussed, over the next 72 hours please eat a light clear diet only and take your upcq-[id number]-[id number] stool softeners. Please use Tylenol and Benadryl as your base for any kind of pain control or nausea and save your prescription opiates only for an emergency as they can worsen constipation. Please call your primary care physician first thing Wednesday morning to update on your ED visit and set up a follow-up for soon as possible. Please come back to the ED with new or concerning symptoms as discussed. Scripts Hydrocodone Bit/Acetaminophen (HYDROCODONE-APAP 5-325 ) 1 Each Tablet 1 TAB PO TID PRN for abdominal pain for 3 Days, #9 TAB 0 Refills Prov: SOREN TATE MD 05/29/21 Problem Qualifiers SOREN TATE MD May 29, 2021 20:39
[2021-05-29] MEDS ORDERED: IV RINGERS SOLUTION,LACTATED 1,000 ML IV ONE (20:45)
[2021-05-29] MEDS ORDERED: MORPHINE SULFATE 4 MG/ML DISP.SYRIN. IV ONE (20:45)
[2021-05-29] MEDS ORDERED: KETOROLAC 15 MG/ML VIAL. IVP ONE (20:45)
[2021-05-29] MEDS ORDERED: ONDANSETRON PF 4 MG/2 ML VIAL. IVP ONE ×2 (20:45→22:00)
[2021-05-29 20:57] LABS: BASO % 0 % (0-3); EOS # 0.2 x10^3/uL (0.0-0.7); EOS % 2 % (0-3); HEMATOCRIT 40.1 % (36.0-47.0); HEMOGLOBIN 13.4 g/dL (12.0-15.5); LYMPH # 2.1 x10^3/uL (1.0-4.8); LYMPH % 29 % (24-48); MEAN CORPUSCULAR HEMOGLOBIN 33 pg (25-35); MEAN CORPUSCULAR HGB CONC 34 g/dL (31-37); MEAN CORPUSCULAR VOLUME 98 fL (79-100); MONO # 0.5 x10^3/uL (0.0-1.1); MONO % 7 % (0-9); NEUT # 4.5 x10^3uL (1.8-7.7); NEUT % 62 % (31-73); PLATELET COUNT 211 x10^3/uL (140-400); RED BLOOD COUNT 4.11 x10^6/uL (3.50-5.40); RED CELL DISTRIBUTION WIDTH 16.1 % (11.5-14.5); WHITE BLOOD COUNT 7.3 x10^3/uL (4.0-11.0)
[2021-05-29 21:02] LABS: BILIRUBIN,URINE NEG (NEG); CLARITY,URINE CLEAR; COLOR,URINE YELLOW; GLUCOSE,URINE NEG (NEG); NITRITE,URINE NEG (NEG); UROBILINOGEN,URINE 0.2 mg/dL (0.2 mg/dL)
[2021-05-29 21:03] LABS: BACTERIA,URINE FEW /HPF (0-FEW); SQUAMOUS EPITHELIAL CELL,UR OCC /LPF; WBC,URINE RARE /HPF (0-4)
[2021-05-29 21:05] LABS: CALCIUM 8.5 mg/dL (8.5-10.1); CREATININE 0.6 mg/dL (0.6-1.0); GFR 111.3; POTASSIUM 3.9 mmol/L (3.5-5.1)
[2021-05-29 21:11] LABS: ALBUMIN 3.9 g/dL (3.4-5.0); ALBUMIN/GLOBULIN RATIO 1.4 (1.0-1.7); TOTAL BILIRUBIN 0.8 mg/dL (0.2-1.0); TOTAL PROTEIN 6.6 g/dL (6.4-8.2)
--- NOTE | 2021-05-29 21:25 | RAD ---
Exam: CT of abdomen and pelvis without contrast INDICATION: Periumbilical pain TECHNIQUE: Sequential axial images through the abdomen and pelvis obtained without IV contrast. Sagit nicole and coronal reformatted images were reconstructed from the axial data and reviewed. Exposure: One or more of the following in the visualized dose reduction techniques were utilized for this examination: 1. Automated exposure control 2. Adjustment of the MA and/or KV according to patient size 3. Use of iterative of reconstructive technique Comparisons: 03/22/2021 FINDINGS: Heart size is normal. No pericardial effusion. Visualized lung bases are clear. No pleural effusion. Evaluation of solid organs is limited secondary to noncontrast technique. Liver, spleen, pancreas and adrenals are unremarkable. Gallbladder surgically absent. No perinephric inflammation or hydronephrosis. No ureteral calculi are identified. Several bilateral nonobstructing renal calculi are seen. Bladder is decompressed not well evaluated. Uterus is absent. No abnormal adnexal mass. Large and small bowel are unremarkable. Gastric banding device is noted. Appendix is normal. No free intra-abdominal air or fluid. No obstruction. Bowel aorta has a normal course and caliber. No enlarged intra-abdominal lymph nodes are identified. No suspicious osseous lesions or acute fractures IMPRESSION: 1. Moderate amount stool noted in colon correlate for constipation. 2. Distention of the stomach with oral contents. No evidence for obstruction is seen. Correlate for enteritis. Electronically signed by: Mi Camacho MD (05/29/2021 9:23 PM) [facility]
[2021-05-29] MEDS ORDERED: MAGNESIUM CITRATE 296 ML SOLUTION. PO ONE (21:45)
[2021-05-29] MEDS ORDERED: HYDR-2155 PO (21:45)
[2021-05-29] MEDS ORDERED: oxyCODONE/APAP 5/325 1 TAB TABLET PO ONE (22:00)
[2021-05-29 22:15] VITALS: BP 116/74
== END 2021-05-29 22:15 | disposition home or self-care (01) ==
LOC: ER 20:04
DX: K52.9 Noninfective gastroenteritis and colitis, unspecified (principal); K59.00 Constipation, unspecified; K21.9 Gastro-esophageal reflux disease without esophagitis; Z88.1 Allergy status to other antibiotic agents; Z90.49 Acquired absence of other specified parts of digestive tract; Z90.710 Acquired absence of both cervix and uterus; Z87.442 Personal history of urinary calculi
CPT/HCPCS: 36415; 74176; 80053; 81001; 83690; 85025; 96374; 96375; 96376; 99284; J1885; J2270; J2405; J7120

== ENCOUNTER 2021-12-24 01:55 | Emergency (ER) | payer OTHER ==
[~2021-12-24] VITALS: Ht 172.7 cm; Wt 65.4 kg
[~2021-12-24 01:55] MED LIST changes: -IBUP-4 PO; +IBUP-5 PO
--- NOTE | 2021-12-24 02:26 | PHYS DOC ---
Past History Past Medical History: Endometriosis, GERD, Kidney Stones, Migraines, Other Additional Past Medical Histor: esophagitis w/bleeding ulcers Past Surgical History: Cholecystectomy, Hysterectomy, Other Additional Past Surgical Histo: l. salpingo-ooperectomy, lap band Smoking: Non-smoker Alcohol Use: None Drug Use: None Adult General HPI HPI Patient is a 41-year-old female with a past medical history of renal stones who presents with right flank pain that started just before coming to the emergency department. States she has had some mild nausea but no vomiting. States she has had this in the past during episodes of renal stones and has had to have renal stents in the past as well but it was on the left. Denies any recent travel, traumas, illnesses, fevers, chest pain, shortness of breath, vomiting, dysuria, hematuria, blood in the stool or diarrhea. States he has been eating and drinking normally. States he is making urine and stool normally for her. Denies any alcohol or drug use. Review of Systems Review of Systems Review of systems otherwise unremarkable except noted in HPI Allergies Allergies Allergies Coded Allergies Type Severity Reaction Last Updated Verified amoxicillin Allergy Intermediate 08/05/20 Yes calamine Allergy Intermediate 08/05/20 Yes Physical Exam Physical Exam Constitutional: Well developed, well nourished, no acute distress, non-toxic appearance. [] HENT: Normocephalic, atraumatic, bilateral external ears normal, oropharynx moist, no oral exudates, nose normal. [] Eyes: conjunctiva normal, no discharge. [] Neck: Normal range of motion, no tenderness, supple, no stridor. [] Cardiovascular:Heart rate regular rhythm, no murmur [] Lungs & Thorax: Bilateral breath sounds clear to auscultation [] Abdomen: soft, no tenderness, no masses, no pulsatile masses. [] Skin: Warm, dry, no erythema, no rash. [] Back: No tenderness, no CVA tenderness. [] Extremities: No tenderness, no cyanosis, no clubbing, ROM intact, no edema. [] Neurologic: Alert and oriented X 3, no focal deficits noted. [] Psychologic: Affect normal, judgement normal, mood normal. [] EKG EKG [] Radiology/Procedures Radiology/Procedures [] Heart Score C/O Chest Pain: No Risk Factors: Risk Factors: DM, Current or recent (<one month) smoker, HTN, HLP, family history of CAD, obesity. Risk Scores: Risk Factors: DM, Current or recent (<one month) smoker, HTN, HLP, family history of CAD, obesity. Course & Med Decision Making Course & Med Decision Making Patient is 41-year-old female presents with right flank pain Vital signs not concerning. Physical exam noted above. Given pain and nausea medicine. CT with multiple nonobstructing renal calculi on the right and a 1 mm calculus in the interpolar left kidney with no hydronephrosis. Urinalysis with a small amount of blood but no suggestion of infection. Discussed differential with patient including passage of a stone. Discussed symptom treatment at home. Advised to follow-up with primary care physician in the morning to update on ED visit. Gave return precautions to the ED. Patient grateful, verbalized understanding and agreed with plan of discharge. [] Dragon Disclaimer Dragon Disclaimer This electronic medical record was generated, in whole or in part, using a voice recognition dictation system. Departure Departure: Impression: Primary Impression: Right flank pain Additional Impressions: Nausea Renal stones Disposition: HOME / SELF CARE / HOMELESS Condition: IMPROVED Referrals: PCP,UNKNOWN (PCP) JULIA CORRAL Patient Instructions: Diet for Kidney Stones, Kidney Stones Additional Instructions: Thank you for coming into the emergency department tonight and allowing us to take care of you. Please read the attached information carefully to go over things we discussed. Please continue Tylenol, ibuprofen and Benadryl every 6-8 hours as needed. Please follow-up in the morning with your primary care physician update on your ED visit and set up a follow-up. You are also given a local primary care physician if [place]. Please come back with new or concerning symptoms as discussed. Problem Qualifiers SOREN TATE MD Dec 24, 2021 02:26
[2021-12-24] MEDS ORDERED: ONDANSETRON ODT 4 MG TAB.RAPDIS PO ONE (02:45)
[2021-12-24] MEDS ORDERED: KETOROLAC 60 MG/2 ML VIAL. IM ONE (02:45)
[2021-12-24 02:54] LABS: CLARITY,URINE CLOUDY; COLOR,URINE YELLOW; GLUCOSE,URINE NEG (NEG); NITRITE,URINE NEG (NEG); UROBILINOGEN,URINE 0.2 mg/dL (0.2 mg/dL)
[2021-12-24 02:57] LABS: AMORPHOUS SEDIMENT,UR PRESENT /HPF; BACTERIA,URINE 0 /HPF (0-FEW); SQUAMOUS EPITHELIAL CELL,UR FEW /LPF; WBC,URINE OCC /HPF (0-4)
--- NOTE | 2021-12-24 03:05 | RAD ---
PQRS Compliance Statement: One or more of the following individualized dose reduction techniques were utilized for this examinat ion: 1. Automated exposure control 2. Adjustment of the mA and/or kV according to patient size 3. Use of iterative reconstruction technique CT abdomen/pelvis without contrast 12/24/2021 2:40 AM INDICATION: Right flank pain COMPARISON: CT abdomen/pelvis 05/29/2021 TECHNIQUE: Multiple axial CT images of the abdomen and pelvis were obtained without intravenous contr ast. Coronal and sagittal reformats are provided. FINDINGS: Lung bases are clear. Heart size within normal limits. Evaluation of solid abdominal viscera is limit ed by the lack of intravenous contrast. Liver, spleen, adrenal glands and pancreas are normal in appe arance. Gallbladder surgically absent. The abdominal aorta is normal in course and caliber. There are no pathologically enlarged lymph nodes in the abdomen and pelvis. There is no abdominal free fluid. There is no free intraperitoneal air. Small and large bowel are normal in caliber. No bowel obstructi on or inflammation. Appendix is not definitively visualized due to multiple adjacent unopacified smal l bowel loops. Post surgical changes are identified along the ventral abdominal wall. Urinary bladder is within normal limits given degree of distention. No suspicious adnexal mass. Postsurgical changes from gastric lap band. Proximal gastric pouch is identified significant hiatal hernia. At least 4 no nobstructing calculi identified in the right kidney measuring up to 3 mm. At least one nonobstructing 1 mm calculus identified in the interpolar left kidney. No definite hydronephrosis. No definite calc nirav within the ureters or urinary bladder. Extensive phleboliths are present. No suspicious osseous a bnormality is identified. IMPRESSION: Bilateral nonobstructing renal calculi are identified. No definite obstructive uropathy. Electronically signed by: Halima Lozano MD (12/24/2021 3:02 AM) [facility]
[2021-12-24] MEDS ORDERED: oxyCODONE IR 5 MG TABLET PO PRN (03:30)
[2021-12-24 03:50] VITALS: BP 114/68
== END 2021-12-24 03:55 | disposition home or self-care (01) ==
LOC: ER 01:55
DX: N20.0 Calculus of kidney (principal); K21.9 Gastro-esophageal reflux disease without esophagitis; G43.909 Migraine, unspecified, not intractable, without status migrainosus; Z90.49 Acquired absence of other specified parts of digestive tract; Z90.710 Acquired absence of both cervix and uterus; Z88.1 Allergy status to other antibiotic agents
CPT/HCPCS: 74176; 81001; 96372; 99284; J1885; Q0162